=== PATIENT | female | born 1950 | race Caucasian/White ===

== ENCOUNTER 2019-01-01 07:06 | Emergency (ER) | payer MEDICARE, OTHER ==
[~2019-01-01] VITALS: Ht 160 cm; Wt 68.2 kg
[~2019-01-01 07:06] MED LIST: ARIP15TA3 PO; ASPI-1265 PO; DULO30CA51 PO; LAMO25TA5 PO; LIDO20SO PO; LOVA20TA2 PO; MODA200T25 PO; lisinopril PO
[2019-01-01 07:10] VITALS: BP 151/85
[2019-01-01] MEDS ORDERED: LIDOcaine 1% 30ml preserv. free vial IJ ONE (07:40)
== END 2019-01-01 09:08 | disposition home or self-care (01) ==
LOC: ER 07:07
DX: S61.211A Laceration without foreign body of left index finger without damage to nail, initial encounter (principal); I10 Essential (primary) hypertension; Z79.82 Long term (current) use of aspirin; Z91.013 Allergy to seafood; W26.8XXA Contact with other sharp object(s), not elsewhere classified, initial encounter; Y93.89 Activity, other specified; Y92.89 Other specified places as the place of occurrence of the external cause; Y99.8 Other external cause status
CPT/HCPCS: 12002; 99283; J3490

== ENCOUNTER 2019-12-28 05:05 | Day surgery (SDC) | payer MEDICARE, OTHER ==
[2019-12-20 15:47] LABS: BASOPHILS % (AUTO) 0.7 % (0-1); EOSINOPHILS # (AUTO) 0.1 X10'3 (0-0.9); EOSINOPHILS % (AUTO) 1.8 % (0-6); LYMPHOCYTES # (AUTO) 1.5 X10'3 (1.1-4.8); LYMPHOCYTES % (AUTO) 26.5 % (21-51); MEAN CORPUSCULAR HEMOGLOBIN 31.2 PG (27.0-31.0); MEAN CORPUSCULAR HGB CONC 33.5 g/dL (33.0-36.5); MEAN PLATELET VOLUME 7.7 FL (7.4-10.4); MONOCYTES # (AUTO) 0.4 X10'3 (0-0.9); NEUTROPHILS # (AUTO) 3.7 X10'3 (1.8-7.7); PRE OP HEMATOCRIT 33.5 % (35.0-45.0); PRE OP HEMOGLOBIN 11.2 g/dL (12.0-16.0); PRE OP PLATELET COUNT 196 X10'3 (140-440); RED BLOOD COUNT 3.61 X10'6 (4.20-5.60); RED CELL DISTRIBUTION WIDTH 12.7 % (11.5-14.5)
[2019-12-20 16:01] LABS: ALBUMIN 3.9 G/DL (3.4-5.0); ALBUMIN/GLOBULIN RATIO 1.2 (1.1-1.5); ALKALINE PHOSPHATASE 75 IU/L (46-116); BLOOD UREA NITROGEN 16 MG/DL (7-18); BUN/CREATININE RATIO 16.7 (6.6-38.0); CALCIUM 9.2 MG/DL (8.5-10.1); CHLORIDE 93 MMOL/L (99-107); CREATININE 0.96 MG/DL (0.40-0.90); PRE OP ALT 15 U/L (30-65); PRE OP ANION GAP 5 (8-16); PRE OP AST 26 U/L (10-37); PRE OP BILIRUB, TOTAL 0.3 MG/DL (0.0-1.0); PRE OP GLUCOSE 92 MG/DL (70-104); PRE OP POTASSIUM 4.3 MMOL/L (3.4-5.1); TOTAL CARBON DIOXIDE 29.7 MMOL/L (24-32); TOTAL PROTEIN 7.1 G/DL (6.4-8.2); eGFR 57 ML/MIN
[2019-12-20 16:02] LABS: PRE OP SODIUM 128 MMOL/L (135-145)
[~2019-12-28] VITALS: Ht 162.6 cm; Wt 71.2 kg
[~2019-12-28 05:05] MED LIST changes: -ASPI-1265 PO; +BUPR75TA8 PO; +CHLO25TA10 PO; +CLOP75TA33 PO; -DULO30CA51 PO; +DULO30CA52 PO; -LIDO20SO PO; -LOVA20TA2 PO; +ringers solution, lacted 1,000 ML IV SCH
[2019-12-28] MEDS ORDERED: famotidine 20mg tablet PO ONE (05:30)
[2019-12-28] MEDS ORDERED: vancomycin 1,500 MG in NS 500ml IV soln IV ONE (05:30)
[2019-12-28] MEDS ORDERED: ceFAZolin 2gm in dextrose, iso 50 ML IV ONE (05:30)
[2019-12-28] MEDS ORDERED: BUPIVAcaine/PF 2.5 mg/ml (0.25%) 30ml vial ONE (06:45)
[2019-12-28] MEDS ORDERED: ceFAZolin 1000mg inj ONE (06:46)
[2019-12-28 06:55] LABS: ISTAT CREATININE 0.9 mg/dL (0.6-1.1); ISTAT HGB 11.2 g/dl (12.0-16.0); ISTAT IONIZED CALCIUM 1.2 mmol/L (1.03-1.32); ISTAT K 4.6 mmol/L (3.5-5.1); POC BUN/CREATININE RATIO 15.6 (6.6-38.0)
--- NOTE | 2019-12-28 08:30 | NUR ---
PT WAS ADMITTED FOR SURGERY THIS AM, IV STARTED TO RIGHT FOREARM, PRE-OP MEDS GIVEN, I-STAT DRAWN, SODIUM 125, PT STATES HER SODIUM IS ALWAYS LOW, DR VANESSA AND DR CORNELL IN TO SEE PT, DECISION TO CANCEL SURGERY, LABS FAXED OVER TO PT'S PRIMARY PHYSICIAN, PT TOLD BY MD TO FOLLOW UP W/PMD. IV D/CD, PT D/CD TO HOME W/FRIEND VIA PRIVATE VEHICLE W/O INCIDENT. Addendum: 12/28/19 at 1150 by Opal Miguel RN Amended: Links added.
== END 2019-12-28 08:30 | disposition home or self-care (01) ==
LOC: PAS 05:05
PROVIDERS: ATTEND Orthopaedic Surgery
DX: S46.012A Strain of muscle(s) and tendon(s) of the rotator cuff of left shoulder, initial encounter (principal); Z53.8 Procedure and treatment not carried out for other reasons; M75.22 Bicipital tendinitis, left shoulder; Z79.01 Long term (current) use of anticoagulants; Z11.59 Encounter for screening for other viral diseases; X58.XXXA Exposure to other specified factors, initial encounter; Y93.89 Activity, other specified; Y92.89 Other specified places as the place of occurrence of the external cause; Y99.8 Other external cause status
CPT/HCPCS: 36415; 80047; 80053; 85025; 85610; 85730; 87635; J0690; J3370; J3490; J7040; J7120

== ENCOUNTER 2020-01-11 07:44 | Inpatient (IN) | payer MEDICARE, OTHER ==
[~2020-01-11] VITALS: Ht 162.6 cm; Wt 71.7 kg
[2020-01-11] VITALS (18 sets, daily range): BP systolic 141–172; BP diastolic 61–97
[~2020-01-11 07:44] MED LIST changes: +cefazolin/dext.iso 2gm/50ml 50 ML IV ONE; +famotidine 20mg tablet PO ONE; -ringers solution, lacted 1,000 ML IV SCH; +vancomycin 1,500 MG in NS 500ml IV soln IV ONE
[2020-01-11 08:35] LABS: BASOPHILS # (AUTO) 0.1 X10'3 (0-0.2); EOSINOPHILS # (AUTO) 0.2 X10'3 (0-0.9); EOSINOPHILS % (AUTO) 3.1 % (0-6); LYMPHOCYTES # (AUTO) 1.5 X10'3 (1.1-4.8); MEAN CORPUSCULAR HEMOGLOBIN 31.4 PG (27.0-31.0); MEAN CORPUSCULAR HGB CONC 33.4 g/dL (33.0-36.5); MEAN CORPUSCULAR VOLUME 94.1 FL (78-98); MEAN PLATELET VOLUME 7.9 FL (7.4-10.4); MONOCYTES # (AUTO) 0.4 X10'3 (0-0.9); MONOCYTES % (AUTO) 7.9 % (2-12); NEUTROPHILS # (AUTO) 3.3 X10'3 (1.8-7.7); PRE OP HEMATOCRIT 33.3 % (35.0-45.0); PRE OP HEMOGLOBIN 11.1 g/dL (12.0-16.0); PRE OP PLATELET COUNT 171 X10'3 (140-440); RED BLOOD COUNT 3.54 X10'6 (4.20-5.60); RED CELL DISTRIBUTION WIDTH 13.4 % (11.5-14.5)
[2020-01-11 09:00] LABS: ALBUMIN 3.7 G/DL (3.4-5.0); ALBUMIN/GLOBULIN RATIO 1.3 (1.1-1.5); ALKALINE PHOSPHATASE 89 IU/L (46-116); BLOOD UREA NITROGEN 15 MG/DL (7-18); BUN/CREATININE RATIO 17.2 (6.6-38.0); CALCIUM 8.9 MG/DL (8.5-10.1); CHLORIDE 102 MMOL/L (99-107); CREATININE 0.87 MG/DL (0.40-0.90); PRE OP ALT 16 U/L (30-65); PRE OP ANION GAP 9 (8-16); PRE OP AST 37 U/L (10-37); PRE OP BILIRUB, TOTAL 0.3 MG/DL (0.0-1.0); PRE OP GLUCOSE 92 MG/DL (70-104); PRE OP POTASSIUM 4.4 MMOL/L (3.4-5.1); PRE OP SODIUM 137 MMOL/L (135-145); TOTAL CARBON DIOXIDE 26.1 MMOL/L (24-32); TOTAL PROTEIN 6.5 G/DL (6.4-8.2); eGFR 64 ML/MIN
[2020-01-11] MEDS: ringers solution, lacted 1,000 ML IV SCH ×2 (09:23→14:53)
[2020-01-11] MEDS ORDERED: BUPIVAcaine/PF 2.5 mg/ml (0.25%) 30ml vial ONE (09:25)
[2020-01-11] MEDS ORDERED: ceFAZolin 1000mg inj ONE (09:25)
[2020-01-11] MEDS ORDERED: PANT-47 PO (09:31)
[2020-01-11] MEDS ORDERED: sevoflurane 250ml liquid IH ONE (09:49)
[2020-01-11] MEDS ORDERED: midazolam 2 mg/2 ml injection ONE (09:54)
[2020-01-11] MEDS ORDERED: fentaNYL /PF 50mcg/ml 5ml ampule ONE ×2 (09:54→10:38)
[2020-01-11] MEDS ORDERED: propofol inj 20 ML IV ONE (09:57)
[2020-01-11] MEDS ORDERED: ondansetron/PF 4mg/2ml inj IV PRN ×2 (10:45→12:45)
[2020-01-11] MEDS ORDERED: morphine 4 MG/ML inj SYRINge IV PRN (10:45)
[2020-01-11] MEDS ORDERED: ringers solution, lacted 1,000 ML IV SCH (10:45)
[2020-01-11] MEDS ORDERED: meperidine/PF 25mg/ml syringe IV PRN ×3 (10:45)
[2020-01-11] MEDS ORDERED: morphine 2 MG/ML inj. syringe IV PRN (10:45)
[2020-01-11] MEDS ORDERED: proCHLORperazine 10 MG/2 ml inj IV PRN (10:45)
[2020-01-11] MEDS ORDERED: rocuronium 10mg/ml inj IV ONE (12:03)
[2020-01-11] MEDS ORDERED: acetaminophen 1,000mg/100ml IV 100 ML IV ONE (12:04)
--- NOTE | 2020-01-11 12:29 | NUR ---
Received from OR via [facility]THO BED WITH [facility] , accompanied by Anesthesiologist ALFONSO and report given by Anesthesiolgist. PATIENT WITH 20G PIV IN RIGHT UE RUNNING LR AT 100. DENIES PAIN AT THIS TIME. LEFT UE IN SLING AND SPLINT THAT IS CDI. + RADIAL PULSE PRESENT. 10L MASK ON WITH 100% SATURATIONS. VSS, SCDS DONNED. Addendum: 01/11/20 at 1246 by Cory Canales RN, RN Amended: Links added.
[2020-01-11] MEDS ORDERED: bisacodyl 10mg suppository rectal RC PRN (12:45)
[2020-01-11] MEDS ORDERED: diphenhydrAMINE 25mg capsule PO PRN ×2 (12:45)
[2020-01-11] MEDS ORDERED: magnesium hydroxide 30ml (MOM) UD suspension PO PRN (12:45)
[2020-01-11] MEDS ORDERED: acetaminophen 325mg tablet PO PRN (12:45)
--- NOTE | 2020-01-11 13:19 | NUR ---
Patient in room . I have received report from Cory BERNSTEIN and had the opportunity to ask questions and assume patient care.
--- NOTE | 2020-01-11 13:29 | NUR ---
Patient has met criteria for transfer to floor. Patient vss. Pain at a tolerable level. Transferred via bed to room where they were hooked to vitals and RN notified patient has arrived. Bed low, call light within reach, 2-3 rails up, vss, belongings placed in room. Care turned over to AMANDEEP CASTILLO. Addendum: 01/11/20 at 1342 by Cory Romero - AMANDEEP BERNSTEIN Amended: Links added.
[2020-01-11] MEDS: HYDROcodone/acetaminophen 10/325mg tab PO PRN ×2 (13:59→20:13)
--- NOTE | 2020-01-11 14:30 | NUR ---
Patient in room ORTHO 4015. I have received report from JONATHAN BERNSTEIN and had the opportunity to ask questions and assume patient care.
--- NOTE | 2020-01-11 14:31 | NUR ---
Problems reprioritized. Patient report given, questions answered & plan of care reviewed with ANTWAN BERNSTEIN.
[2020-01-11] MEDS: potassium Cl 20mEq in NS 1,000 ML IV SCH (16:10)
[2020-01-11] MEDS: ceFAZolin 1GM/D5W- ADD-VANTAGE 50 ML IV SCH (16:11)
[2020-01-11] MEDS: HYDROmorphone inj. 0.5 MG/0.5 ML DISP.SYRIN IV PRN (16:14)
[2020-01-11] MEDS ORDERED: ketorolac tromethamine 15mg/ml inj. IV SCH (16:30)
--- NOTE | 2020-01-11 18:25 | NUR ---
Problems reprioritized. Patient report given, questions answered & plan of care reviewed with RICHARD BERNSTEIN.
--- NOTE | 2020-01-11 18:32 | NUR ---
Patient in room ORTHO 4015. I have received report from Daniela BERNSTEIN and had the opportunity to ask questions and assume patient care.
[2020-01-11] MEDS ORDERED: vancomycin/NS 1 GM ADD-VANTAGE 250 ML IV SCH (20:00)
[2020-01-11] MEDS: lamoTRIgine 100mg tablet PO SCH (20:13)
[2020-01-11] MEDS ORDERED: sennosides 8.6mg tablet PO SCH (21:00)
[2020-01-11] MEDS ORDERED: duloxetine 30mg CAPSULE.DR PO SCH (21:00)
[2020-01-11] MEDS: ketorolac tromethamine 15mg/ml inj. IV PRN (22:14)
[2020-01-12] MEDS: ceFAZolin 1GM/D5W- ADD-VANTAGE 50 ML IV SCH (00:01)
[2020-01-12 02:00] VITALS: BP 166/80
[2020-01-12] MEDS: HYDROcodone/acetaminophen 10/325mg tab PO PRN ×4 (02:15→16:23)
[2020-01-12] MEDS: potassium Cl 20mEq in NS 1,000 ML IV SCH (05:37)
[2020-01-12 06:00] VITALS: BP 165/78
--- NOTE | 2020-01-12 06:28 | NUR ---
Problems reprioritized. Patient report given, questions answered & plan of care reviewed with Margaret BERNSTEIN.
[2020-01-12] MEDS: HYDROmorphone inj. 0.5 MG/0.5 ML DISP.SYRIN IV PRN ×2 (07:52→14:39)
[2020-01-12] MEDS: ketorolac tromethamine 15mg/ml inj. IV PRN ×2 (07:57→14:39)
[2020-01-12] MEDS ORDERED: clopidogrel 75mg tablet PO SCH (08:00)
[2020-01-12] MEDS ORDERED: modafinil 100mg tablet PO SCH (08:00)
[2020-01-12] MEDS ORDERED: buPROPion 75mg tablet PO SCH (08:00)
[2020-01-12] MEDS ORDERED: ARIPIPRAZOLE 15 MG TABLET PO SCH (08:00)
[2020-01-12] MEDS ORDERED: chlorthalidone 25mg tablet PO SCH (08:00)
[2020-01-12] MEDS: lamoTRIgine 100mg tablet PO SCH (08:02)
--- NOTE | 2020-01-12 09:16 | NUR ---
Problems reprioritized. Patient report given, questions answered & plan of care reviewed with Shereen BERNSTEIN.
--- NOTE | 2020-01-12 09:31 | NUR ---
Problems reprioritized. Patient report given, questions answered & plan of care reviewed with Margaret BERNSTEIN.
--- NOTE | 2020-01-12 09:35 | NUR ---
I agree with the physical assessment charted by Margaret BERNSTEIN
[2020-01-12 10:00] VITALS: BP 139/71
--- NOTE | 2020-01-12 16:50 | NUR ---
Patient taught all discharge instructions and had paper copy of norco given to her. Patient taken on in to private vehicle and has a follow up appointment on Wednesday with Dr. Crawley.
--- NOTE | 2020-01-17 09:52 | NUR ---
Case Management DC follow up: spoke to pt via telephone. S/P: L shoulder repair Reports: "doing good". Denies: acute cp, SOB, resp distress, vertigo, syncope,weakness, blurry vision, N/V, RHODES, emergent general pain, abd tenderness/distension, fever. Denies s/s infection to L arm, surg site. Verbalizes understanding of s/s that warrant 9-11/ER visit for evaluation. Verbalizes understanding of new Rx and why prescribed, resumes current Rx/taking as ordered, no ase r/t polypharmacy. Acknowledges need to schedule/keep follow up appts w/ PCP/Katt Verma; Dr Crawley 01/26/20. Pt verbalizes compliance w/after care instructions. Needs met, questions answered at DC, no further questions at this time.
== END 2020-01-12 16:45 | disposition home or self-care (01) | DRG 502 ==
LOC: PAS 07:44 → ORTHO 4S 12:41 → UNDOADMIN 12:44
PROVIDERS: ADMIT Orthopaedic Surgery; ATTEND Orthopaedic Surgery
PROC: 0LS40ZZ Reposition Left Upper Arm Tendon, Open Approach (ICD-10-PCS; 2020-01-11)
PROC: 0PBB0ZZ Excision of Left Clavicle, Open Approach (ICD-10-PCS; 2020-01-11)
PROC: 0LQ20ZZ Repair Left Shoulder Tendon, Open Approach (ICD-10-PCS; principal; 2020-01-11 09:49)
DX: M75.122 Complete rotator cuff tear or rupture of left shoulder, not specified as traumatic (principal); M75.22 Bicipital tendinitis, left shoulder; I10 Essential (primary) hypertension; M19.012 Primary osteoarthritis, left shoulder; D64.9 Anemia, unspecified; K21.9 Gastro-esophageal reflux disease without esophagitis; F41.8 Other specified anxiety disorders
CPT/HCPCS: 36415; 80053; 82948; 85025; A4565; A4618; A6223; A6253; A6449; A7000; C1713; G0378; J0131; J0690; J1170; J1885; J2250; J2405; J2704; J3010; J3370; J3480; J3490; J7040; J7120

== ENCOUNTER 2020-02-19 10:23 | Emergency (ER) | payer MEDICARE, OTHER ==
[~2020-02-19] VITALS: Ht 162.6 cm; Wt 67.3 kg
[~2020-02-19 10:23] MED LIST changes: +PANT-47 PO; -cefazolin/dext.iso 2gm/50ml 50 ML IV ONE; -famotidine 20mg tablet PO ONE; -vancomycin 1,500 MG in NS 500ml IV soln IV ONE
[2020-02-19] MEDS ORDERED: AMOX-422 PO (12:49)
[2020-02-19 12:54] VITALS: BP 91/51
== END 2020-02-19 13:02 | disposition home or self-care (01) ==
LOC: ER 10:24
DX: S81.812A Laceration without foreign body, left lower leg, initial encounter (principal); I10 Essential (primary) hypertension; F32.9 Major depressive disorder, single episode, unspecified; Z88.8 Allergy status to other drugs, medicaments and biological substances; Z79.899 Other long term (current) drug therapy; W55.82XA Struck by other mammals, initial encounter; Y93.89 Activity, other specified; Y92.89 Other specified places as the place of occurrence of the external cause; Y99.8 Other external cause status
CPT/HCPCS: 12004; 73590; 99283

== ENCOUNTER → 2020-06-24 | Day surgery (SDC) | payer MEDICARE, OTHER ==
[~2020-06-24] VITALS: Ht 157.5 cm; Wt 72.0 kg
[2020-06-24] VITALS (9 sets, daily range): BP systolic 96–149; BP diastolic 45–66
[~2020-06-24] MED LIST changes: +FLU VACC QS2020-21(6MOS UP)/PF 60 MCG/0.5 ML SYRINGE IMVAC ONE; +HYDROcodone/acetaminophen 10/325mg tab PO PRN; +HYDROcodone/acetaminophen 5mg/325mg tablet PO PRN; +LIDOcaine 1% (10mg/ml)w/preservative injection 20ml MDV ONE; +LISI30TA4 PO; +clopidogrel 300mg tablet ONE; +diphenhydrAMINE 25mg capsule PO PRN; +diphenhydrAMINE 50 mg/ml inj ONE; +fentaNYL/PF 50MCG/1 ML 2ML syringe ONE; +heparin 1,000unit/ml 10ml vial 10 ML ONE; +iohexol 350 MG/1 ML 200ml bottle ONE; +iohexol 350MG/ML 100ml bottle IV ONE; +midazolam 2 mg/2 ml injection ONE; +normal saline 1,000 ML IV SCH; +ondansetron/PF 4mg/2ml inj IV PRN; +proCHLORperazine 10 MG/2 ml inj IV PRN
[2020-06-24 08:30] LABS: ALBUMIN 3.7 G/DL (3.4-5.0); ANION GAP 7 (8-16); BLOOD UREA NITROGEN 20 MG/DL (7-18); BUN/CREATININE RATIO 23.3 (6.6-38.0); CHLORIDE 93 MMOL/L (99-107); CREATININE 0.86 MG/DL (0.40-0.90); GLUCOSE 92 MG/DL (70-104); POTASSIUM 4.9 MMOL/L (3.5-5.1); SODIUM 126 MMOL/L (135-145); TOTAL CARBON DIOXIDE 26.1 MMOL/L (24-32); eGFR 65 ML/MIN
[2020-06-24 08:38] LABS: BASOPHILS # (AUTO) 0.1 X10'3 (0-0.2); BASOPHILS % (AUTO) 1.3 % (0-1); EOSINOPHILS # (AUTO) 0.1 X10'3 (0-0.9); EOSINOPHILS % (AUTO) 1.8 % (0-6); HEMATOCRIT 31.1 % (35.0-45.0); HEMOGLOBIN 10.8 g/dl (12.0-16.0); LYMPHOCYTES # (AUTO) 1.5 X10'3 (1.1-4.8); LYMPHOCYTES % (AUTO) 28.4 % (21-51); MEAN CORPUSCULAR HEMOGLOBIN 32.9 PG (27.0-31.0); MEAN CORPUSCULAR HGB CONC 34.8 g/dL (33.0-36.5); MEAN CORPUSCULAR VOLUME 94.8 FL (78-98); MEAN PLATELET VOLUME 7.3 FL (7.4-10.4); MONOCYTES # (AUTO) 0.3 X10'3 (0-0.9); MONOCYTES % (AUTO) 6.3 % (2-12); NEUTROPHILS # (AUTO) 3.2 X10'3 (1.8-7.7); NEUTROPHILS % (AUTO) 62.2 % (42-75); PLATELET COUNT 217 X10'3 (140-440); RED BLOOD COUNT 3.28 X10'6 (4.20-5.60); RED CELL DISTRIBUTION WIDTH 12.5 % (11.5-14.5); WHITE BLOOD COUNT 5.1 X10'3 (4.5-11.0)
--- NOTE | 2020-06-24 08:55 | NUR ---
at the bedside.
--- NOTE | 2020-06-24 09:11 | NUR ---
Pt left the floor to procedure.
--- NOTE | 2020-06-24 11:54 | NUR ---
Asked pt's sister to call back to discuss discharge time, per patient request
--- NOTE | 2020-06-24 13:14 | NUR ---
Have left two messages with pt's family, no return call yet. Pt is attempting to contact sister. Pt sitting up comfortably in bed, site stable. Drsg CD&I. No s/s of bleeding or infection. VS stable as charted. Pt eating crackers and cheese. Denies N/V. Denies sob, cp. Will continue to monitor.
== END | disposition home or self-care (01) ==
LOC: SSTAY O 07:27
PROVIDERS: ATTEND Internal Medicine Cardiovascular Disease
DX: T82.856A Stenosis of peripheral vascular stent, initial encounter (principal); I10 Essential (primary) hypertension; E78.5 Hyperlipidemia, unspecified; Z79.899 Other long term (current) drug therapy; Y83.8 Other surgical procedures as the cause of abnormal reaction of the patient, or of later complication, without mention of misadventure at the time of the procedure; Y92.89 Other specified places as the place of occurrence of the external cause
CPT/HCPCS: 36415; 37224; 75716; 80048; 83735; 85025; 85610; 93005; 99152; 99153; C1725; C1760; C1769; C1894; J1200; J1644; J2001; J2250; J3010; J7030; Q9967; 75710; A4620; A6258

== ENCOUNTER 2020-06-28 12:18 | Outpatient (CLI) | payer MEDICARE, OTHER ==
[~2020-06-28 12:18] MED LIST changes: -BUPR75TA8 PO; -FLU VACC QS2020-21(6MOS UP)/PF 60 MCG/0.5 ML SYRINGE IMVAC ONE; -HYDROcodone/acetaminophen 10/325mg tab PO PRN; -HYDROcodone/acetaminophen 5mg/325mg tablet PO PRN; -LIDOcaine 1% (10mg/ml)w/preservative injection 20ml MDV ONE; -PANT-47 PO; -clopidogrel 300mg tablet ONE; -diphenhydrAMINE 25mg capsule PO PRN; -diphenhydrAMINE 50 mg/ml inj ONE; -fentaNYL/PF 50MCG/1 ML 2ML syringe ONE; -heparin 1,000unit/ml 10ml vial 10 ML ONE; -iohexol 350 MG/1 ML 200ml bottle ONE; -iohexol 350MG/ML 100ml bottle IV ONE; -lisinopril PO; -midazolam 2 mg/2 ml injection ONE; -normal saline 1,000 ML IV SCH; -ondansetron/PF 4mg/2ml inj IV PRN; -proCHLORperazine 10 MG/2 ml inj IV PRN
== END 2020-06-28 23:59 | disposition home or self-care (01) ==
LOC: VAS 12:18
PROVIDERS: ATTEND Internal Medicine Cardiovascular Disease
DX: L76.32 Postprocedural hematoma of skin and subcutaneous tissue following other procedure (principal); R09.89 Other specified symptoms and signs involving the circulatory and respiratory systems
CPT/HCPCS: 93926

== ENCOUNTER 2021-02-12 06:35 | Emergency (ER) | payer MEDICARE, OTHER ==
[~2021-02-12] VITALS: Ht 154.9 cm; Wt 72.7 kg
[2021-02-12] MEDS ORDERED: proparacaine 0.5% ophthalmic drops 15ml LEFTEYE ONE (07:05)
[2021-02-12] MEDS ORDERED: acetaminophen 325mg tablet PO ONE (08:50)
[2021-02-12] MEDS ORDERED: LIDOcaine 1% W/epiNEPHrine 1:200,000 10ml vial IJ ONE (09:00)
--- NOTE | 2021-02-12 10:18 | NUR ---
left eye irrigated. pt states, "feels much better"
[2021-02-12] MEDS ORDERED: cloNIDine 0.1 mg tablet PO ONE (11:20)
[2021-02-12] MEDS: gentamicin ophthalmic ointment 1 APPLIC TUBE LEFTEYE ONE ×2 (11:23→11:27)
[2021-02-12 11:40] VITALS: BP 118/92
== END 2021-02-12 11:47 | disposition home or self-care (01) ==
LOC: ER 06:36
DX: S05.32XA Ocular laceration without prolapse or loss of intraocular tissue, left eye, initial encounter (principal); E78.00 Pure hypercholesterolemia, unspecified; I10 Essential (primary) hypertension; F32.9 Major depressive disorder, single episode, unspecified; Z98.890 Other specified postprocedural states; Z72.89 Other problems related to lifestyle; Z88.8 Allergy status to other drugs, medicaments and biological substances; Z79.899 Other long term (current) drug therapy; W19.XXXA Unspecified fall, initial encounter; Y93.89 Activity, other specified; Y92.89 Other specified places as the place of occurrence of the external cause; Y99.8 Other external cause status
CPT/HCPCS: 12011; 65222; 70450; 99284

== ENCOUNTER 2021-02-13 07:48 | Emergency (ER) | payer MEDICARE, OTHER ==
[~2021-02-13] VITALS: Ht 154.9 cm; Wt 71.0 kg
[2021-02-13 08:07] VITALS: BP 141/79
== END 2021-02-13 12:10 | disposition left against medical advice (07) ==
LOC: ER 07:49
DX: H57.12 Ocular pain, left eye (principal); Z53.21 Procedure and treatment not carried out due to patient leaving prior to being seen by health care provider

== ENCOUNTER 2022-10-15 08:13 | Outpatient (CLI) | payer MEDICARE, OTHER ==
[2022-10-15 08:49] LABS: ALBUMIN 3.9 G/DL (3.4-5.0); ANION GAP 6 (8-16); BLOOD UREA NITROGEN 28 MG/DL (7-18); BUN/CREATININE RATIO 26.9 (6.6-38.0); CALCIUM 9.1 MG/DL (8.5-10.1); CHLORIDE 103 MMOL/L (99-107); CREATININE 1.04 MG/DL (0.40-0.90); GLUCOSE 94 MG/DL (70-104); POTASSIUM 4.7 MMOL/L (3.5-5.1); SODIUM 135 MMOL/L (135-145); TOTAL CARBON DIOXIDE 25.9 MMOL/L (24-32); eGFR 52 ML/MIN
[2022-10-15] MEDS ORDERED: iohexol 300mg/ml 100ml inj. ONE (09:37)
== END 2022-10-15 23:59 | disposition home or self-care (01) ==
LOC: RAD 08:13
PROVIDERS: ATTEND Surgery
DX: C34.10 Malignant neoplasm of upper lobe, unspecified bronchus or lung (principal); R91.8 Other nonspecific abnormal finding of lung field; I70.0 Atherosclerosis of aorta; J43.9 Emphysema, unspecified; J84.10 Pulmonary fibrosis, unspecified; I25.10 Atherosclerotic heart disease of native coronary artery without angina pectoris; K76.0 Fatty (change of) liver, not elsewhere classified; K76.89 Other specified diseases of liver; K57.30 Diverticulosis of large intestine without perforation or abscess without bleeding; M47.814 Spondylosis without myelopathy or radiculopathy, thoracic region; M41.84 Other forms of scoliosis, thoracic region
CPT/HCPCS: 36415; 71260; 80048; J3490; Q9967

== ENCOUNTER 2022-11-02 08:33 | Outpatient (CLI) | payer MEDICARE, OTHER ==
[2022-11-02] MEDS ORDERED: GADOTERATE MEGLUMINE 7.5 MMOL/15 ML VIAL IV ONE (09:51)
== END 2022-11-02 23:59 | disposition home or self-care (01) ==
LOC: RAD 08:33
PROVIDERS: ATTEND Surgery
DX: C34.10 Malignant neoplasm of upper lobe, unspecified bronchus or lung (principal); C34.11 Malignant neoplasm of upper lobe, right bronchus or lung; I67.82 Cerebral ischemia; M89.38 Hypertrophy of bone, other site
CPT/HCPCS: 70553; A9575

== ENCOUNTER 2022-11-17 08:29 | Emergency (ER) | payer MEDICARE, OTHER ==
[~2022-11-17] VITALS: Ht 154.9 cm; Wt 64.8 kg
[2022-11-17] MEDS ORDERED: acetaminophen 325mg tablet PO ONE (08:40)
[2022-11-17] MEDS ORDERED: normal saline 1000ml 1,000 ML IV ONE (08:40)
--- NOTE | 2022-11-17 09:00 | NUR ---
ATTEMPT EKG, PT IN CT.
[2022-11-17] MEDS ORDERED: fentaNYL/PF 50MCG/1 ML 2ML syringe IV ONE (09:55)
[2022-11-17] MEDS ORDERED: ondansetron/PF 4mg/2ml inj IV ONE (09:55)
[2022-11-17 10:42] LABS: BASOPHILS % (AUTO) 0.4 % (0-1); EOSINOPHILS % (AUTO) 0.5 % (0-6); HEMATOCRIT 37.4 % (35.0-45.0); HEMOGLOBIN 12.3 g/dl (12.0-16.0); LYMPHOCYTES % (AUTO) 14.1 % (21-51); MEAN CORPUSCULAR HEMOGLOBIN 30.1 PG (27.0-31.0); MEAN CORPUSCULAR HGB CONC 32.8 g/dL (33.0-36.5); MEAN CORPUSCULAR VOLUME 91.8 FL (78-98); MEAN PLATELET VOLUME 8.8 FL (7.4-10.4); MONOCYTES # (AUTO) 0.5 X10'3 (0-0.9); MONOCYTES % (AUTO) 6.2 % (2-12); NEUTROPHILS # (AUTO) 5.8 X10'3 (1.8-7.7); NEUTROPHILS % (AUTO) 78.8 % (42-75); PLATELET COUNT 156 X10'3 (140-440); RED BLOOD COUNT 4.08 X10'6 (4.20-5.60); RED CELL DISTRIBUTION WIDTH 15.9 % (11.5-14.5); WHITE BLOOD COUNT 7.3 X10'3 (4.5-11.0)
[2022-11-17 10:54] LABS: ALANINE AMINOTRANSFERASE 44 U/L (12-78); ALBUMIN 3.9 G/DL (3.4-5.0); ALBUMIN/GLOBULIN RATIO 1.3 (1.1-1.5); ALKALINE PHOSPHATASE 100 IU/L (46-116); ANION GAP 11 (8-16); ASPARTATE AMINO TRANSFERASE 66 U/L (10-37); BILIRUBIN,TOTAL 0.4 MG/DL (0.1-1.0); BLOOD UREA NITROGEN 38 MG/DL (7-18); BUN/CREATININE RATIO 38.4 (10.0-20.0); CALCIUM 8.9 MG/DL (8.5-10.1); CHLORIDE 105 MMOL/L (99-107); CREATININE 0.99 MG/DL (0.40-0.90); GLUCOSE 107 MG/DL (70-104); LIPASE 87 U/L (73-393); POTASSIUM 4.5 MMOL/L (3.5-5.1); SODIUM 137 MMOL/L (135-145); TOTAL CARBON DIOXIDE 20.8 MMOL/L (24-32); eGFR 55 ML/MIN
== END 2022-11-17 11:23 | disposition short-term general hospital (02) ==
LOC: ER 08:29
DX: S12.600A Unspecified displaced fracture of seventh cervical vertebra, initial encounter for closed fracture (principal); Z20.822 Contact with and (suspected) exposure to COVID-19; I10 Essential (primary) hypertension; E78.00 Pure hypercholesterolemia, unspecified; Z91.013 Allergy to seafood; W19.XXXA Unspecified fall, initial encounter; Y93.89 Activity, other specified; Y92.89 Other specified places as the place of occurrence of the external cause; Y99.8 Other external cause status
CPT/HCPCS: 36415; 70450; 71045; 72125; 80053; 83690; 84484; 85025; 87811; 93005; 96374; 96375; 99285; J2405; J3010; J7030

== ENCOUNTER 2023-03-20 14:09 | Emergency (ER) | payer MEDICARE, OTHER ==
[~2023-03-20] VITALS: Ht 154.9 cm; Wt 61.4 kg
[2023-03-20 14:48] VITALS: BP 147/97; PULSE 117; RESP 22; TEMP 96.5; O2SAT 93
== END 2023-03-20 22:11 | disposition left against medical advice (07) ==
LOC: ER 14:10
DX: I10 Essential (primary) hypertension (principal); R06.02 Shortness of breath; R05.9 Cough, unspecified; Z53.21 Procedure and treatment not carried out due to patient leaving prior to being seen by health care provider
CPT/HCPCS: 99281

== ENCOUNTER 2023-03-22 06:17 | Emergency (ER) | payer MEDICARE, OTHER ==
[~2023-03-22] VITALS: Ht 154.9 cm; Wt 62.2 kg
[2023-03-22] MEDS ORDERED: ipratropium 0.5 MG/2.5ML nebule IH PRN (06:55)
[2023-03-22] MEDS ORDERED: albuterol 2.5 MG/3 ML nebule NEB PRN (06:55)
[2023-03-22 07:00] LABS: BASOPHILS # (AUTO) 0.1 X10'3 (0-0.2); BASOPHILS % (AUTO) 0.6 % (0-1); EOSINOPHILS # (AUTO) 0.2 X10'3 (0-0.9); EOSINOPHILS % (AUTO) 2.6 % (0-6); HEMATOCRIT 33.8 % (35.0-45.0); HEMOGLOBIN 11.2 g/dl (12.0-16.0); LYMPHOCYTES % (AUTO) 11.7 % (21-51); MEAN CORPUSCULAR HEMOGLOBIN 30.1 PG (27.0-31.0); MEAN CORPUSCULAR HGB CONC 33.3 g/dL (33.0-36.5); MEAN CORPUSCULAR VOLUME 90.6 FL (78-98); MEAN PLATELET VOLUME 7.7 FL (7.4-10.4); MONOCYTES # (AUTO) 0.5 X10'3 (0-0.9); MONOCYTES % (AUTO) 6.3 % (2-12); NEUTROPHILS # (AUTO) 6.8 X10'3 (1.8-7.7); NEUTROPHILS % (AUTO) 78.8 % (42-75); PLATELET COUNT 227 X10'3 (140-440); RED BLOOD COUNT 3.73 X10'6 (4.20-5.60); RED CELL DISTRIBUTION WIDTH 14.7 % (11.5-14.5); WHITE BLOOD COUNT 8.6 X10'3 (4.5-11.0)
[2023-03-22] MEDS ORDERED: albuterol 2.5 MG/3 ML nebule NEB ONE (07:00)
[2023-03-22] MEDS ORDERED: methylPREDNISolone sod succ 125mg/2ml vial IV ONE (07:00)
[2023-03-22 07:16] LABS: ALANINE AMINOTRANSFERASE 22 U/L (12-78); ALBUMIN 3.6 G/DL (3.4-5.0); ALBUMIN/GLOBULIN RATIO 1.1 (1.1-1.5); ALKALINE PHOSPHATASE 137 IU/L (46-116); ANION GAP 12 (8-16); ASPARTATE AMINO TRANSFERASE 25 U/L (10-37); BILIRUBIN,TOTAL 0.3 MG/DL (0.1-1.0); BLOOD UREA NITROGEN 24 MG/DL (7-18); CALCIUM 8.8 MG/DL (8.5-10.1); CHLORIDE 104 MMOL/L (99-107); CREATININE 1.33 MG/DL (0.40-0.90); GLUCOSE 89 MG/DL (70-104); POTASSIUM 4.3 MMOL/L (3.5-5.1); SODIUM 138 MMOL/L (135-145); TOTAL CARBON DIOXIDE 22.2 MMOL/L (24-32); TOTAL PROTEIN 6.8 G/DL (6.4-8.2); eCRCL 28 ML/MIN; eGFR 39 ML/MIN
[2023-03-22 07:23] VITALS: PULSE 114; RESP 36; O2SAT 96
[2023-03-22 07:26] LABS: PRO BRAIN NATRIURETIC PEPTIDE 79 PG/ML (0-125)
[2023-03-22] MEDS ORDERED: benzonatate 100mg capsule PO ONE (07:35)
[2023-03-22 07:38] VITALS: PULSE 109; RESP 25; O2SAT 96
[2023-03-22] MEDS ORDERED: DEC4T PO (09:40)
[2023-03-22] MEDS ORDERED: BENZ-38 PO (09:40)
[2023-03-22] MEDS ORDERED: ALBU6.7H14 INH (09:40)
[2023-03-22 10:05] VITALS: BP 150/71; PULSE 96; RESP 14; TEMP 98.1; O2SAT 96
== END 2023-03-22 10:25 | disposition home or self-care (01) ==
LOC: ER 06:18
DX: J45.901 Unspecified asthma with (acute) exacerbation (principal); Z20.822 Contact with and (suspected) exposure to COVID-19; I10 Essential (primary) hypertension; E78.00 Pure hypercholesterolemia, unspecified; F32.A Depression, unspecified; Z79.899 Other long term (current) drug therapy
CPT/HCPCS: 36415; 71045; 80053; 83605; 83880; 84145; 84484; 85025; 87040; 87811; 93005; 94640; 96374; 99285; J2930; 94760

== ENCOUNTER 2025-05-26 11:44 | Inpatient (IN) | payer OTHER, MEDICAID ==
[~2025-05-26] VITALS: Ht 154.9 cm; Wt 66.7 kg
[2025-05-26] VITALS (7 sets, daily range): BP systolic 106–114; BP diastolic 45–54; PULSE 90–100; RESP 16–20; TEMP 97.6–97.7; O2SAT 94–98
[~2025-05-26 11:44] MED LIST changes: -ARIP15TA3 PO; +ATOR-2 PO; +BUPR-480 PO; -CHLO25TA10 PO; +CLON0.1T; +DULO60CA65 PO; +EZET10TA80 PO; +LAMO-24 PO; -LAMO25TA5 PO; -MODA200T25 PO
--- NOTE | 2025-05-26 12:06 | Physician Documentation ---
History of Present Illness ~ Chief Complaint: Weakness Stated Complaint: FALL OK to notify your PCP?: Yes Primary Medical Doctor: Luci Source: patient Mode of Arrival: POV Exam Limitations: no limitations HPI 74-year-old female presents with her sister or increasing weakness. She is currently using a front wheel walker. No she reports that a few days ago she had a fall. She does take Plavix. She denies having any head strike with this fall. She also reports a decrease in appetite. She also reports generalized abdominal pain. Medication Reconciliation Allergies: Coded Allergies: shrimp (Verified Allergy, Severe, THROAT SWELLING, 05/26/25) Scheduled Atorvastatin Calcium (Atorvastatin Calcium), 1 TAB PO DAILY, (Reported) Bupropion HCl (Bupropion Xl), 1 TAB PO DAILY, (Reported) Clopidogrel Bisulfate (Clopidogrel), 1 TAB PO DAILY, (Reported) Duloxetine HCl (Duloxetine HCl), 2 CAP PO HS, (Reported) Duloxetine HCl (Duloxetine HCl), 1 CAP PO DAILY, (Reported) Ezetimibe (Ezetimibe), 1 TAB PO DAILY, (Reported) Lamotrigine (Lamotrigine), 100 MG PO BID, (Reported) Lisinopril (Lisinopril), 1 TAB PO DAILY, (Reported) Miscellaneous Medications Clonidine HCl (Clonidine HCl), (Reported) Past Medical History Past Medical History: High Cholesterol, Hypertension, *GI/HEPATOBILIARY*, Lung Cancer, Depression Past Surgical History: orthopedic surgeries Patient History: (CABG) Coronary artery bypass grafting FATHER (70 ) brother (55-58 years old) Alcohol Use: Sober Drug Use: none Lives In: Home Occupation: disabled, retired Physical Exam Vital Signs: RN Vital Signs have been reviewed: Yes, Temperature: 97.2, Source: Temporal, Heart Rate: 97, Respiratory Rate: 24, BP: 120/60, Pulse Oximetry: 96, Weight: 66.700 Oxygen Flow Rate: 0 Pulse Oximetry Reflects: adequate oxygenation Physical Exam General: Alert, no distress. HEENT: No injection, moist mucous membranes. Neck: Full range of motion. Respiratory: No respiratory distress, equal chest rise and fall. Chest: No accessory muscle use. Cardiovascular: Regular rate and rhythm. Gastrointestinal: Nondistended. Extremities: Normal range of motion, no deformity. Neurologic: Oriented x4. Psychiatric: Normal mood and affect. Skin: Normal color, warm and dry. Progress Results/Orders Results/Orders Vital Signs 05/26/25 11:51 Temp 97.2 Pulse 97 Resp 24 B/P (MAP) 120/60 Pulse Ox 96 O2 Flow Rate 0 Departure Referrals: NO PRIMARY CARE PROVIDER (PCP) Additional Comment Medical Screen Exam This patient recieved a medical screening examination. After reviewing the individual's medical complaints with presenting symptoms and performing an appropriate physical examination, it was determined that no immediate life- threatening emergency medical condition is present. This individual is also not a women having contractions. BALBIR BACON [facility] May 26, 2025 12:06
[2025-05-26 12:56] LABS: MEAN PLATELET VOLUME 7.2 FL (7.4-10.4); RED CELL DISTRIBUTION WIDTH 13.5 % (11.5-14.5)
[2025-05-26 13:01] LABS: INR 1.1 INR
[2025-05-26 13:12] LABS: CREATININE 1.93 MG/DL (0.40-0.90); PHOSPHORUS 4.3 MG/DL (2.3-4.5); PRO BRAIN NATRIURETIC PEPTIDE 589 PG/ML (0-450); TOTAL CARBON DIOXIDE 23.5 MMOL/L (24-32); eCRCL 19 ML/MIN; eGFR 25 ML/MIN
[2025-05-26 13:31] LABS: INFLUENZA TYPE A ANTIGEN RAPID NEGATIVE (Negative); INFLUENZA TYPE B ANTIGEN RAPID NEGATIVE (Negative)
[2025-05-26] MEDS ORDERED: vancomycin/NS 1 GM ADD-VANTAGE 250 ML X 1 DOSE IV SCH (14:00)
[2025-05-26 14:19] LABS: LEUKOCYTE ESTERASE ,URINE LARGE (Neg); NITRITES, URINE NEGATIVE (Neg); OCCULT BLOOD,URINE SMALL (Neg)
[2025-05-26 14:21] LABS: C DIFF ANTIGEN NEGATIVE (NEGATIVE); C DIFF SPECIMEN=DIARRHEA? ACCEPTABLE; C DIFFICILE TOXINS A&B NEGATIVE (Neg)
[2025-05-26 14:24] LABS: UA COLLECTION TYPE CLN CATCH MIDSTREAM
[2025-05-26 14:26] LABS: MUCUS STRANDS FEW /LPF (Neg); SQUAMOUS EPITHELIAL CELL,UR MODERATE /LPF (FEW)
--- NOTE | 2025-05-26 14:32 | RADIOLOGY REPORT ---
CT CT HEAD Indication: Fall EXAM DATE: 05/26/2025 02:04 PM COMPARISON: None TECHNIQUE: CT of the head without intravenous contrast. RADIATION DOSE: CTDIvol: 16 1 mGy, DLP: 1182 mGy*cm FINDINGS: There is no intracranial hemorrhage. There is no extra-axial fluid, mass, mass effect or midline shift. The ventricles are midline and normal in size. Basilar cisterns are patent. Moderate periventricular and subcortical white matter chronic microvascular ischemic changes. Mild global cerebral volume loss. Old bilateral nicole radiata / basal ganglia lacunar infarcts. The paranasal sinuses and mastoids are well-pneumatized. Imaged portion of the orbits are unremarkable. IMPRESSION: No intracranial hemorrhage or mass effect. Moderate chronic microvascular ischemic changes. Mild global cerebral volume loss.
--- NOTE | 2025-05-26 14:43 | RADIOLOGY REPORT ---
EXAM: CT CT CERVICAL SPINE INDICATION: Fall EXAM DATE: 05/26/2025 02:06 PM COMPARISON: CT CT HEAD on DOS: 05/26/25, CT HEAD on DOS: 11/17/22, CT CERVICAL SPINE on DOS: 11/17/22 TECHNIQUE: Multiple axial CT images of the cervical spine were obtained using bone algorithm. Axial and coronal reformatting was done. Bone and soft tissue windows were reviewed. Radiation Dose Information: CT Dose: CTDI volume is 20.2 mGy. Dose-length product is 397 mGy*cm FINDINGS: The cervical alignment is intact. No acute cervical spine fracture is identified. The vertebral body heights are intact. No suspicious osseous lesions are identified. Posterior cervical fixation hardware spans C5 down to T1. No evidence of hardware complication. There is no prevertebral soft tissue swelling. IMPRESSION: 1. No evidence of acute cervical spine fracture or traumatic malalignment. All CT scans at this medical facility are performed using dose modulation techniques as appropriate to a performed exam including the following: Automated exposure control was utilized; adjustment of the MA and/or KV according to patient size; and use of iterative reconstruction technique.
--- NOTE | 2025-05-26 15:34 | RADIOLOGY REPORT ---
CLINICAL HISTORY: ABD pain TECHNIQUE: CT of the abdomen and pelvis was performed without intravenous contrast. This exam was performed according to our departmental dose optimization program. Up-to-date CT equipment and radiation dose reduction techniques are utilized as appropriate. CTDI: 16.22+ 0.14 DLP: 780.93 WID: COMPARISON: None FINDINGS: Lower Thorax: Normal-sized heart. At least mild coronary artery calcifications partially imaged. Linear bibasilar scarring or atelectasis. There is a right lower lobe pulmonary nodule measuring 1 cm on series 2, image 13. Liver and Biliary system: Normal-sized liver. Small hypodensity in segment 3 of the liver is not optimally evaluated without contrast. Gallbladder is normal caliber. There is no biliary ductal dilatation. Spleen: Unremarkable. Adrenal Glands and Kidneys: Normal adrenal glands. There is mild left hydroureteronephrosis with left urothelial thickening. No discrete obstructing calculus in the left renal collecting system. There is left perinephric and periureteral soft tissue stranding. No right hydronephrosis. Small hypodensity in the interpolar posterior right kidney which could reflect a cyst although not optimally evaluated without contrast. Pancreas and Retroperitoneum: Mild atrophy of the pancreas. Mildly prominent gastrohepatic ligament, retroperitoneal, and periportal lymph nodes although predominantly are normal-sized. Aorta and Major Vessels: Aortoiliac vessels are normal in caliber containing moderate calcified atherosclerotic plaque. Bowel, Mesentery and Peritoneal space: The small and large bowel loops are normal in caliber. Mild distal colonic diverticulosis. Trace ascites in the pelvis. No fluid collection or free air. Pelvis: Prior hysterectomy. Urinary bladder is minimally distended. There is no pelvic lymphadenopathy. Abdominal wall and Osseous Structures: Moderate to marked right hip osteoarthritis with joint space narrowing, prominent subchondral cyst formation and subchondral sclerosis. Moderate degenerative narrowing of the left hip joint space. There is a small right hip joint effusion. There is bony demineral ization. Multilevel moderate lower thoracic and lumbar spondylosis. IMPRESSION: 1. Mild left hydroureteronephrosis, left urothelial thickening and periureteral soft tissue stranding. This could be related to recent obstruction or ascending infection. Correlate with urinalysis. No discrete obstructing calculus is seen. 2. There is a 1 cm right lower lobe pulmonary nodule. This was present on CT chest dated 11/25/2023. Consider repeat imaging by November 2025 to confirm at least 2 year stability. 3. Partially imaged mild calcified coronary artery disease. 4. Mild distal colonic diverticulosis. 5. Moderate to marked right hip and moderate left hip osteoarthritis. Small right hip joint effusion.
[2025-05-26] MEDS: normal saline 1000ml 1,000 ML IV ONE (15:37)
[2025-05-26] MEDS: VANCOMYCIN/WATER FOR INJ (PEG) 1.5GM/300 ML IVPB IV ONE (15:38)
[2025-05-26] MEDS ORDERED: magnesium sulf-water 2g/50mL 50 ML IV PRN (15:40)
[2025-05-26] MEDS ORDERED: HYDROcodone/acetaminophen 5mg/325mg tablet PO PRN (15:40)
[2025-05-26] MEDS ORDERED: mag hydrox/Alum hydrox/simeth 30ml oral suspension PO PRN (15:40)
[2025-05-26] MEDS ORDERED: magnesium sulf-water 4G/100mL 100 ML IV PRN (15:40)
[2025-05-26] MEDS ORDERED: potassium Cl 20 mEq SR tablet PO PRN ×2 (15:40)
[2025-05-26] MEDS ORDERED: magnesium Cl slow-release 64mg tablet PO PRN (15:40)
[2025-05-26] MEDS ORDERED: ondansetron/PF 4mg/2ml inj IV PRN ×2 (15:40→16:45)
[2025-05-26] MEDS ORDERED: morphine 4 MG/ML inj SYRINge IV PRN (15:40)
[2025-05-26] MEDS ORDERED: potassium Cl 40MEQ/1/2NS 520ml 520 ML IV PRN (15:40)
[2025-05-26] MEDS: PERFLUTREN PROTEIN-A MICROSPHR (Optison) 0.22 MG/ML 3ML VIAL IV ONE (15:40)
[2025-05-26] MEDS ORDERED: magnesium hydroxide 30ml (MOM) UD suspension PO PRN (15:40)
[2025-05-26] MEDS ORDERED: piperacillin/tazo 3.375gm/50ml 50 ML IV SCH (16:00)
[2025-05-26] MEDS ORDERED: albuterol 2.5 MG/3 ML nebule NEB PRN (16:45)
[2025-05-26] MEDS: nicotine 21mg patch - 24 hr TD ONE (16:45)
[2025-05-26] MEDS ORDERED: ipratropium/albuterol 3ml nebule NEB SCH (16:45)
--- NOTE | 2025-05-26 17:01 | RADIOLOGY REPORT ---
CHEST RADIOGRAPH Indication: CHEST CONGESTION Technique: Single frontal view of the chest was obtained Comparison: DI CHEST,SINGLE VIEW on DOS: 03/22/23, CHEST,SINGLE VIEW on DOS: 11/17/22 FINDINGS: Lines and Tubes: None Lungs: No focal consolidation. Hyperinflation of the lungs with mild interstitial prominence. Bibasilar and right up to mid lung zone linear atelectasis /scarring. Pleura: No effusion. No pneumothorax. Cardiomediastinal contours: Unremarkable Bones: No acute osseous abnormality. IMPRESSION: Bibasilar and right upper to mid lung zone linear atelectasis/ scarring. No focal consolidation.
[2025-05-26 18:04] LABS: URINE AMPHETAMINE SCREEN NEGATIVE (Neg); URINE BARBITUATE SCREEN NEGATIVE (Neg); URINE BENZODIAZEPINES SCREEN NEGATIVE (Neg); URINE CANNABINOID SCREEN NEGATIVE (Neg); URINE COCAINE SCREEN NEGATIVE (Neg); URINE METHADONE SCREEN NEGATIVE (Neg); URINE OPIATE SCREEN NEGATIVE (Neg); URINE PHENCYCLIDINE SCREEN NEGATIVE (Neg)
--- NOTE | 2025-05-26 19:02 | HISTORY AND PHYSICAL-Residence ---
History & Physical Providers to CC Resident Creating Document: SARA LEUNG, RES CC: AGUILA SABILLON MD ~ History of Present Illness Primary Medical Doctor: Luci Reason for Admit\Complaint: Urinary tract infection, sepsis, BALAJI History of Present Illness 74-year-old female patient with past history of peripheral vascular disease with stents, history of right lung cancer status post radiation, hypertension presented to the ED with chief complaints of weakness for the last 1-1/2 week, but associated with any dizziness or syncopal attack, patient also stated that she has had multiple recurrent falls in the past, but not any recently. Patient also reported burning micturition for the last 2-3 days not associated with fever, chills. Patient denied any chief complaints of chest pain, abdominal pain, palpitations Patient's primary care doctor Luci HEBERT Patient lives in [place] alone Patient normally ambulates with a front walker wheelchair Allergies: Coded Allergies: shrimp (Verified Allergy, Severe, THROAT SWELLING, 05/26/25) Home Medications Home Medications Active Reported Clonidine HCl 0.1 Mg Tablet Ezetimibe 10 Mg Tablet 1 Tab PO DAILY Duloxetine HCl 60 Mg Capsule.dr 1 Cap PO DAILY Bupropion Xl (Bupropion HCl) 300 Mg Tab.er.24h 1 Tab PO DAILY Atorvastatin Calcium 80 Mg Tablet 1 Tab PO DAILY Lisinopril 30 Mg Tablet 1 Tab PO DAILY Clopidogrel (Clopidogrel Bisulfate) 75 Mg Tablet 1 Tab PO DAILY Duloxetine HCl 30 Mg Capsule.dr 2 Cap PO HS Lamotrigine 25 Mg Tablet 100 Mg PO BID Past Medical History Past Medical History Hypertension peripheral vascular disease right lung cancer status post radiation Past Surgical History Surgical History Comment total hysterectomy tonsillectomy bilateral cataracts bilateral knees replaced bilateral shoulders Cervical spine surgery-neck surgery post a traumatic fall-Posterior cervical fixation hardware Family History Family History: (CABG) Coronary artery bypass grafting FATHER (70 ) brother (55-58 years old) Past Social History Social History Comment Patient continues to drink alcohol-drinks about three beers and she has drank for the last 40 years Patient continues to smoke one pack of cigarettes for the last 40 years Denied any other drug use Smoking: Cigarettes, Greater than 1 pack/day Alcohol Use: Sober Drug Use: None Lives In: Home Occupation: disabled, retired ROS ROS Constitutional: No fever, dizziness, weakness present, no decrease in appetite HEENT: Normal vision. No sore throat, epistaxis, tinnitus Cardiovascular: No chest pain/discomfort, palpitations, syncope. no pedal edema Respiratory: No sob, cough,hemoptysis Gastrointestinal: No abdominal pain, nausea, vomiting. No diarrhea, melena. Genitourinary: No frquency, urgency, incontinence, nocturia. No dysuria, hematuria, burning micturition noted Musculoskeletal: Normal, no pains Endocrine: No fatigue, polydipsia, polyuria. No heat or cold intolerance Neurologic: No headache, vertigo. No weakness, numbness or tingling of extremities Psychiatric: No hallucinations/delusions, no anhedonia, no suicidal ideation; patient is extremely anxious and teary-eyed Hematologic: No bruises Exam Vitals: Vital Signs Date Time Temp Pulse Resp B/P (MAP) Pulse Ox O2 Delivery O2 Flow Rate FiO2 05/26/25 17:58 97.6 100 20 106/45 (65) 97 Room Air 05/26/25 11:51 0 General: General: Awake, oriented to person, place and time, extremely anxious and teary-eyed, pursed lip breathing noted HEENT: Conjunctive are pale, sclerae clear, no icterus, pupil is equal in both sides, reactive to light, no ear discharge, no pharyngeal erythema or an edema. Neck: Supple, no JVD, no lymphadenopathy and thyromegaly, postsurgical scar behind patient's neck cervical spine Chest: Increased work of breathing possibly due to her anxiety, pursed lip breathing, accessory muscle use, decreased breath sounds heard, decreased breath sounds heard in bilateral lung, no wheezing heard, bronchial sounds heard in bilateral lungs Cardiovascular: S1-S2 regular sinus rhythm and, regular rate, no gallops, no rubs, no murmurs Abdomen: No visible peristalsis, Bowel sounds present on auscultation, soft, no tenderness, no guarding, no rigidity Extremities: No obvious deformities, no pitting edema bilaterally, capillary refill intact, peripheral pulsations are intact on both sides, chronic venous insufficiency noted in bilateral extremity Neurologic: Mental status: alert and conscious, oriented to place, person and time, preserved memory, normal speech. Cranial nerves I-XII: Normal. Motor system: Preserved power, coordination, no evidenced involuntary movements, 5/5 strength in upper extremity, 2/5 strength in lower extremities 2+ deep tendon reflexes in biceps, triceps, quadriceps. Negative Babinski. Cerebellar: No nystagmus, dysdiadochokinesia, normal [id number] testing. Musculoskeletal: No joint swelling, deformities, inflammations, and no scoliosis and back tenderness Skin: Warm and dry. Dry oral mucosa. Diagnostic Data Last Recorded Lab Results: 05/26/25 1243 05/26/25 1243 Diagnostic Data: Laboratory Tests Test 05/26/25 12:43 Prothrombin Time 11.4 SECONDS (9.0-12.0) INR International Normalized Ratio 1.1 INR Coagulation Comments Counseling Services Smoking & Tobacco Cessation: 3-10 Minutes (Discussing smoking cessation with the patient including the risk continued smoking with the patient including: lung cancer, stroke, heart attack, poor wound healing, increase in facial drinking, risk of MRSA skin infections.) Advance Care Planning Advanced Care plannin - 30 Minutes (I spent 60 minutes talking with the patient regarding resuscitative methods, patient decided she want to be full code) Additional Plan Sepsis, present on admission SIRS criteria met: Heart rate >90 beats per minute, WBC count > 12,000 Secondary to UTI [place] [address], elevated neutrophils, lactic acid was 2.5 down to 0.7, procalcitonin normal Patient's urinalysis was positive for leukocyte esterase and too many to count WBCs Patient received aggressive intravenous fluid resuscitation in accordance with sepsis protocol Patient received 3 L of fluid, and initiated the patient on 100 mL normal saline Although patient's proBNP is elevated 589, chest x-ray was clear for any congestion: Fluid resuscitation justified in view of sepsis Plan: Initiated the patient on vancomycin and Zosyn Continue normal saline at 100 mL/hour Follow up with urine cultures and sensitivities COPD not in acute exacerbation Patient is currently on room air saturating at 96% not requiring any oxygen Chest x-ray shows: Bibasilar and right upper to mid lung zone linear atelectasis/ scarring Initiated the patient on breathing treatment: Albuterol q.2h p.r.n., DuoNebs q.4h scheduled Initiated oxygen if patient's saturation drops below 94% BALAJI on CKD, possibly due to vasomotor nephropathy Patient's creatinine is elevated 1.93, for creatinine of one year back was normal Ordered urine lytes Continue hydration Hyponatremia, not symptomatic Patient's sodium is currently 130 Ordered urine lytes and serum osmolality Continue normal saline at 100 mL/hour Hypertension Patient has history of hypertension, patient normally takes lisinopril 30 mg, Her blood pressure is low right now Hold antihypertensive medications at this point History of recurrent falls And has a history of recurrent falls in the past, however she stated she has not had a fall recently CT head was done which was negative cervical spine x-ray was done which was negative for any recent falls Follow precautions in place Hyperlipidemia Ordered lipid profile Patient's home medication atorvastatin 80 mg Continue once med rec is completed Tobacco use disorder Discussing smoking cessation with the patient including the risk continued smoking with the patient including: lung cancer, stroke, heart attack, poor wound healing, increase in facial drinking, risk of MRSA skin infections. Initiated the patient on nicotine patch 21 mg t.i.d. Alcohol use disorder CIWA score 15 Patient appears anxious Patient stated that her last drink was five days ago, Blood ETOH pending Patient's AST is elevated at 42 Initiated the patient on moderate alcohol withdrawal instructional media services technician and substance use navigator consulted Code Status: Full code DVT Prophylaxis: Heparin Lines/Tubes: PIV Nutrition: Heart healthy diet PT:yes Prognosis: Guarded Disposition: Continue to monitor the patient, follow-up with labs, follow up with urine culture. Med rec pending Sara Leung MD Internal medicine resident,PGY-1 Date of Service: May 26, 2025 Billing Provider: AGUILA SABILLON MD, JAHNAVI, RES May 26, 2025 19:02
[2025-05-26 19:23] LABS: ETHANOL < 10 MG/DL (<10)
--- NOTE | 2025-05-26 19:39 | CARDIOLOGY REPORT ---
APPROVED REPORT EXAM: Comprehensive 2D, Doppler, and color-flow Echocardiogram. Patient Location: [address] Blood Pressure: 106/45 mmHg Heart Rate: 94 bpm Rhythm: Sinus Rhythm Indications Congestive Heart Failure Weakness/Falls Hypertension Hx of PVD Hx of Lung Cancer (Right) s/p Radiation Art Model: None Previous echo: 05/11/2014 [facility] EF:75% 2D Dimensions RVDd 3.6 cm LA Diam 3.8 cm IVSd 0.9 (0.7-1.1cm) LVDd 4.4 cm PWd 0.9 (0.7-1.1cm) IVSs 1.3 (0.8-1.2cm) RA Minor 3.6 cm LVDs 3.1 (2.5-4.0cm) Aortic Root(2D) 3.2 cm PWs 1.2 (0.8-1.2cm) LVOT Diameter 2.08 (1.8-2.4cm) LVEF(%) 55.2 (>50%) IVC 17.90 mm FS (%) 28.5 % SV 47.1 ml CO 9.4 L/min M-Mode Dimensions RVDd 3.13 (2.1-3.2cm) Left Atrium(MM) 3.87 (2.5-4.0cm) IVSd 1.19 (0.7-1.1cm) LVDd 5.40 (4.0-5.6cm) Aortic Root 3.30 (2.2-3.7cm) PWd 1.11 (0.7-1.1cm) Aortic Cusp Exc 1.89 (1.5-2.0cm) IVSs 1.52 cm LVDs 3.54 (2.0-3.8cm) FS (%) 33 % PWs 1.21 cm ESV(Teich) 52.3 ml LVEF(%) 61 (>50%) Aortic Valve AoV Peak Ephraim. 193.1 cm/s AoV VTI 33.3 cm AO Peak GR. 14.9 mmHg AO Mean GR. 8 mmHg LVOT VTI 24.50 cm LVOT Peak Ephraim. 135.3 cm/s CALVIN(VTI)/BSA 2.51 cm2/m2 CALVIN (VTI) 2.51 cm2 AV DI 0.74 % Mitral Valve MV E Velocity 81.7 cm/s MV Peak Gr. 5 mmHg MV DECEL TIME 192 ms MV A Velocity 118.1 cm/s MV Mean Gr. 2 mmHg MV PHT 68 ms E/A Ratio 0.7 MVA (PHT) 3.24 cm2 MV VMax 106.5 cm/s MV VMean 76.6 cm/s MVA VTI 4.19 cm2 MV VTI 19.9 cm Tricuspid Valve TR P. Velocity 315 cm/s RAP ESTIMATE 10 mmHg TR Peak Gr. 40 mmHg RVSP 50 mmHg LEFT VENTRICLE Normal LV size and wall thickness. Overall systolic function is normal. Overall LVEF is 60%. RIGHT VENTRICLE Right ventricle is mildly dilated with adequate function. Estimated PA systolic pressure is 50 mmHg. ATRIA The left atrium size is normal. The right atrium size is normal. AORTIC VALVE Trileaflet AV appears sclerotic without stenosis. Trace insufficiency. MITRAL VALVE Mild MV annular calcification without stenosis. Trace regurgitation. TRICUSPID VALVE TV appears structurally normal with trace regurgitation. Elevated right heart pressures as noted above. PULMONIC VALVE Grossly normal PV without stenosis, physiologic insufficiency. GREAT VESSELS The aortic root is normal in size. IVC is normal in size and collapses less than 50% with inspiration. PERICARDIUM Normal pericardium. No pericardial effusion seen. Other Information Study Quality: Fair. TDS due to patients mental status, inability to remain still. Conclusion Normal LV size and wall thickness. Overall systolic function is normal. Overall LVEF is 60%. Right ventricle is mildly dilated with adequate function. Estimated PA systolic pressure is 50 mmHg. The left atrium size is normal. The right atrium size is normal. Trileaflet AV appears sclerotic without stenosis. Trace insufficiency. Mild MV annular calcification without stenosis. Trace regurgitation. TV appears structurally normal with trace regurgitation. Normal pericardium. No pericardial effusion seen.
[2025-05-26 19:48] LABS: CHOL/HDL RATIO 2.5 (0.00-4.99); LDL CHOLESTEROL 38 MG/DL (50-100)
[2025-05-26] MEDS: docusate sod 100mg capsule PO SCH (20:00)
[2025-05-26] MEDS: K and/or MAG REPLACEMENT MC SCH (20:00)
[2025-05-26] MEDS ORDERED: VANCOmycin 1250MG/NS 250ml Bag 250 ML IV SCH (20:00)
[2025-05-26] MEDS: ringers solution, lacted 1,000 ML IV ONE (20:04)
[2025-05-26] MEDS: ipratropium/albuterol 3ml nebule NEB SCH (20:09)
[2025-05-26] MEDS: thiamine 100mg/ml 2ml inj. IV SCH (20:10)
[2025-05-26] MEDS: nicotine 21mg patch - 24 hr TD SCH (20:19)
[2025-05-26] MEDS: heparin, porcine 5000 units/ml vial SQ SCH (20:21)
[2025-05-26 20:41] LABS: OSMOLALITY 272 MOSM/K (280-300)
[2025-05-26] MEDS: piperacillin/tazo 3.375gm/50ml 50 ML IV SCH (22:01)
[2025-05-26] MEDS: normal saline 1000ml 1,000 ML IV SCH (22:12)
[2025-05-27] VITALS (18 sets, daily range): BP systolic 94–136; BP diastolic 42–68; PULSE 60–115; RESP 16–48; TEMP 96.9–98.4; O2SAT 90–99
[2025-05-27 04:44] LABS: CREATININE,URINE RANDOM 68.0 MG/DL
[2025-05-27 04:55] LABS: OSMOLALITY UA 342.0 MOSM/K (50-1400)
[2025-05-27 06:26] LABS: MEAN PLATELET VOLUME 7.0 FL (7.4-10.4); RED CELL DISTRIBUTION WIDTH 13.4 % (11.5-14.5)
[2025-05-27 07:03] LABS: CREATININE 1.42 MG/DL (0.40-0.90); TOTAL CARBON DIOXIDE 22.5 MMOL/L (24-32); eCRCL 26 ML/MIN; eGFR 36 ML/MIN
[2025-05-27] MEDS: folic acid 1mg/0.2ml inj IV SCH (10:27)
--- NOTE | 2025-05-27 13:46 | VASCULAR REPORT ---
CLINICAL HISTORY: Left left upper extremity pain and swelling TECHNIQUE: Color and duplex doppler imaging of the left upper extremity veins and left subclavian vein was performed. Vessel compression if possible was also performed. WID: COMPARISON: None FINDINGS: Acute /subacute hypoechoic nonocclusive thrombus in the left basilic vein at the antecubital fossa. The left internal jugular, axillary, basilic vein at the forearm and bicep, cephalic, brachial , radial, and ulnar veins are patent and demonstrate normal compressibility and flow. The left subclavian is patent. IMPRESSION: 1. NO SONOGRAPHIC EVIDENCE FOR DEEP VENOUS THROMBOSIS IN THE LEFT UPPER EXTREMITY VEINS. 2. Superficial vein thrombus in the basilic vein in the antecubital fossa. Acute /subacute appearing.
[2025-05-27] MEDS: vancomycin inj. 750 MG in normal saline 250ml IV soln 250 ML IV SCH (15:12)
[2025-05-27] MEDS ORDERED: vancomycin inj 500 MG in normal saline 100ml IV soln 100 ML IV SCH (16:00)
--- NOTE | 2025-05-27 16:49 | PROGRESS NOTE- Residence ---
Progress Note - Resident Providers to CC Resident Creating Document: HANDYTERENCE PATRICIARACHNA DUARTE ~ Antibiotic Timeout Antibiotic Ordered?: Yes Subjective Seen and examined the patient at bedside. She is endorsing that she is improving with the weakness and he her symptom of burning micturition. Objective Vital Signs Date Time Temp Pulse Resp B/P (MAP) Pulse Ox O2 Delivery O2 Flow Rate FiO2 05/27/25 15:31 92 18 Room Air 0.0 05/27/25 15:24 94 21 05/27/25 11:00 97.7 112/58 (76) Result Diagram: 05/27/25 0604 05/27/25 06 General: Awake, oriented to person, place and time, not in acute distress HEENT: Conjunctive are pale, sclerae clear, no icterus, pupil is equal in both sides, reactive to light, no ear discharge, no pharyngeal erythema or an edema. Neck: Supple, no JVD, no lymphadenopathy and thyromegaly, postsurgical scar behind patient's neck cervical spine Chest: decreased breath sounds heard in bilateral lower zones of lung, no wheezing heard, bronchial sounds heard in bilateral lungs Cardiovascular: S1-S2 regular sinus rhythm and, regular rate, no gallops, no rubs, no murmurs Abdomen: No visible peristalsis, Bowel sounds present on auscultation, soft, no tenderness, no guarding, no rigidity Extremities: No obvious deformities, no pitting edema bilaterally, capillary refill intact, peripheral pulsations are intact on both sides, chronic venous insufficiency noted in bilateral extremity Neurologic: Mental status: alert and conscious, oriented to place, person and time, preserved memory, normal speech. Cranial nerves I-XII: Normal. Motor system: Preserved power, coordination, no evidenced involuntary movements, 5/5 strength in upper extremity, 2/5 strength in lower extremities 2+ deep tendon reflexes in biceps, triceps, quadriceps. Negative Babinski. Cerebellar: No nystagmus, dysdiadochokinesia, normal [id number] testing. Musculoskeletal: No joint swelling, deformities, inflammations, and no scoliosis and back tenderness Skin: Warm and dry. Dry oral mucosa. Coagulation Studies Laboratory Tests Test 05/26/25 12:43 Prothrombin Time 11.4 SECONDS (9.0-12.0) INR International Normalized Ratio 1.1 INR Coagulation Comments Advance Care Planning Advanced Care plannin - 30 Minutes Plan Plan Sepsis secondary to UTI, Gram-negative rods Tachypnea is present currently on room air maintaining oxygen saturation at 94. White blood cells are improving, 16.1 Patient's urinalysis was positive for leukocyte esterase and too many to count WBCs Lactic acid is trended down to normal with IV fluid resuscitation Continuing IV normal saline at the rate of 100 mL/hour Although patient's proBNP is elevated 589, chest x-ray was clear for any congestion: Fluid resuscitation justified in view of sepsis Plan: We will continue vanc and Zosyn and we will discontinue vanc from tomorrow if cultures are negative for MRSA Preliminary blood culture is negative Acute hypoxemic respiratory failure secondary to Acute exacerbation of COPD Pulmonary hypertension Patient is currently on room air saturating at 96% not requiring any oxygen Chest x-ray shows: Bibasilar and right upper to mid lung zone linear atelectasis/ scarring Initiated the patient on breathing treatment: Albuterol q.2h p.r.n., DuoNebs q.4h scheduled Initiated oxygen if patient's saturation drops below 94% Not initiated on steroid therapy because of underlying sepsis with UTI BALAJI on CKD, possibly due to vasomotor nephropathy Above likely secondary to sepsis with UTI Serum creatinine is 1.42, improved Serum osmolality is 272, urine osmolality 342, urine random creatinine is 68, urine random sodium is 34 Currently on IV normal saline at the rate of 100 mL/hour Hypotonic Hyponatremia, improved Patient's sodium is currently 135 Continue normal saline at 100 mL/hour Hypertension Patient has history of hypertension, patient normally takes lisinopril 30 mg, Held home medications of clonidine, lisinopril History of recurrent falls And has a history of recurrent falls in the past, however she stated she has not had a fall recently CT head was done which was negative cervical spine x-ray was done which was negative for any recent falls Follow precautions in place Hyperlipidemia LDL is 38 on 05/26/2025 We will continue Atorvastatin 20 mg Tobacco use disorder Discussing smoking cessation with the patient including the risk continued smoking with the patient including: lung cancer, stroke, heart attack, poor wound healing, increase in facial drinking, risk of MRSA skin infections. We will continue nicotine patch 21 mg t.i.d. Alcohol use disorder CIWA score 15 Patient stated that her last drink was five days ago, ETOH is less than 10 Patient's AST is elevated at 42 We will continue moderate alcohol withdrawal environmental services worker and substance use navigator consulted Code Status: Full code DVT Prophylaxis: Heparin Lines/Tubes: PIV Nutrition: Heart healthy diet PT:yes Prognosis: Guarded Disposition: Anticipate discharge in a.m. if PT cleared with albuterol and Symbicort inhaler. Bill Elias IM resident, PGY 2 Date of Service: May 27, 2025 Billing Provider: AGUILA SABILLON MD, VENKATESH, RES May 27, 2025 16:49
[2025-05-28] VITALS (20 sets, daily range): BP systolic 102–164; BP diastolic 40–98; PULSE 83–137; RESP 15–45; TEMP 96.9–98.1; O2SAT 43–96
[2025-05-28 06:30] LABS: MEAN PLATELET VOLUME 6.6 FL (7.4-10.4); RED CELL DISTRIBUTION WIDTH 13.9 % (11.5-14.5)
[2025-05-28 06:48] LABS: CREATININE 1.05 MG/DL (0.40-0.90); TOTAL CARBON DIOXIDE 22.5 MMOL/L (24-32); eCRCL 35 ML/MIN; eGFR 51 ML/MIN
[2025-05-28] MEDS: duloxetine 30mg CAPSULE.DR PO SCH (07:36)
[2025-05-28] MEDS: BUPROPION HCL 150MG XL 24 HR 150 MG TAB PO SCH (07:37)
[2025-05-28] MEDS: nicotine 21mg patch - 24 hr TD SCH (07:39)
[2025-05-28] MEDS ORDERED: vancomycin/NS 1 GM ADD-VANTAGE 250 ML X 1 DOSE IV SCH (14:00)
--- NOTE | 2025-05-28 16:26 | PROGRESS NOTE- Residence ---
Progress Note - Resident Providers to CC Resident Creating Document: LISA SHAFFER RES ~ Antibiotic Timeout Antibiotic Ordered?: Yes Subjective Patient was seen and examined at bedside. She claims that urinary symptoms along with weakness have improved. PT recommended post acute care, patient will be transferred to [facility] on p.o. antibiotics in a.m.. 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 Iqbal. Sutures are currently in place. Had a conversation with Dr. Fontana ([phone]); recommended to remove sutures prior to discharge. Objective Vital Signs Date Time Temp Pulse Resp B/P (MAP) Pulse Ox O2 Delivery O2 Flow Rate FiO2 05/28/25 15:35 99 20 Room Air 0.0 05/28/25 15:27 94 21 05/28/25 15:00 97.0 148/75 (99) Result Diagram: 05/28/25 0611 05/28/25 0611 General: Awake, oriented to person, place and time, not in acute distress HEENT: Conjunctive are pale, sclerae clear, no icterus, pupil is equal in both sides, reactive to light, no ear discharge, no pharyngeal erythema or an edema. Neck: Supple, no JVD, no lymphadenopathy and thyromegaly, postsurgical scar behind patient's neck cervical spine Chest: decreased breath sounds heard in bilateral lower zones of lung, no wheezing heard, vesicular breath sounds present bilaterally Cardiovascular: S1-S2 regular sinus rhythm and, regular rate, no gallops, no rubs, no murmurs Abdomen: No visible peristalsis, Bowel sounds present on auscultation, soft, no tenderness, no guarding, no rigidity Extremities: No obvious deformities, no pitting edema bilaterally, capillary refill intact, peripheral pulsations are intact on both sides Neurologic: Mental status: alert and conscious, oriented to place, person and time, preserved memory, normal speech. Cranial nerves I-XII: Normal. Motor system: Preserved power, coordination, no evidenced involuntary movements, 5/5 strength in upper extremity, 2/5 strength in lower extremities 2+ deep tendon reflexes in biceps, triceps, quadriceps. Negative Babinski. Cerebellar: No nystagmus, dysdiadochokinesia, normal [id number] testing. Musculoskeletal: No joint swelling, deformities, inflammations, and no scoliosis and back tenderness Skin: Warm and dry. Dry oral mucosa. Coagulation Studies Laboratory Tests Test 05/26/25 12:43 Prothrombin Time 11.4 SECONDS (9.0-12.0) INR International Normalized Ratio 1.1 INR Coagulation Comments Advance Care Planning Advanced Care plannin - 30 Minutes Plan Plan Sepsis secondary to UTI, Gram-negative rods Tachypnea is present currently on room air maintaining oxygen saturation at 94. White blood cells are improving from 16.1 to 12 today Patient's urinalysis was positive for leukocyte esterase and too many to count WBCs Although patient's proBNP is slightly elevated 589; chest x-ray was clear for any congestion and Fluid resuscitation is continued: IV normal saline at the rate of 100 mL/hour Lactic acid normalized Urine cultures grew: Pansensitive E coli Discontinued vancomycin and Zosyn today; initiated ceftriaxone 2 g IV daily Blood cultures negative until now Acute hypoxemic respiratory failure secondary to Acute exacerbation of COPD Pulmonary hypertension Patient is currently on room air saturating at 96% not requiring any oxygen Chest x-ray shows: Bibasilar and right upper to mid lung zone linear atelectasis/ scarring Continue breathing treatment: Albuterol q.2h p.r.n., DuoNebs q.4h scheduled Initiate oxygen if patient's saturation drops below 94% Currently not initiating steroid therapy due to underlying sepsis secondary to UTI BALAJI on CKD, possibly due to vasomotor nephropathy Above likely secondary to sepsis with UTI Serum creatinine improved to 1.02 Serum osmolality is 272, urine osmolality 342, urine random creatinine is 68, urine random sodium is 34 Currently on IV normal saline at the rate of 100 mL/hour Hypotonic Hyponatremia, resolved Hypertension Patient has history of hypertension, patient normally takes lisinopril 30 mg, Held home medications of clonidine, lisinopril History of recurrent falls Stated she has not had a fall recently CT head was done which was negative cervical spine x-ray was done which was negative for any recent falls Follow precautions in place Hyperlipidemia LDL is 38 on 05/26/2025 We will continue Atorvastatin 20 mg Tobacco use disorder Discussing smoking cessation with the patient including the risk continued smoking with the patient including: lung cancer, stroke, heart attack, poor wound healing, increase in facial drinking, risk of MRSA skin infections. We will continue nicotine patch 21 mg t.i.d. Alcohol use disorder CIWA score 15 Patient stated that her last drink was five days ago, ETOH is less than 10 Patient's AST is elevated at 42 We will continue moderate alcohol withdrawal client services account manager and substance use navigator consulted Code Status: Full code DVT Prophylaxis: Heparin Lines/Tubes: PIV Nutrition: Heart healthy diet PT: Recommended post acute care Prognosis: Guarded Disposition: Patient is accepted at [facility]; discharge tomorrow in a.m. Lisa Shaffer MD Internal Medicine Resident, PGY-2 Date of Service: May 28, 2025 Billing Provider: AGUILA SABILLON MD, GAURAV, RES May 28, 2025 16:26
[2025-05-29] VITALS (16 sets, daily range): BP systolic 99–174; BP diastolic 58–98; PULSE 92–132; RESP 18–25; TEMP 97.6–98.4; O2SAT 93–100
[2025-05-29] MEDS: HYDROmorphone/PF 0.2 MG/ML SYRINGE IV PRN (02:44)
[2025-05-29 07:21] LABS: MEAN PLATELET VOLUME 6.6 FL (7.4-10.4); RED CELL DISTRIBUTION WIDTH 13.7 % (11.5-14.5)
[2025-05-29 07:39] LABS: CREATININE 1.02 MG/DL (0.40-0.90); TOTAL CARBON DIOXIDE 24.3 MMOL/L (24-32); eCRCL 36 ML/MIN; eGFR 53 ML/MIN
[2025-05-29] MEDS: CefTRIAXone 2gm/D5W 50ml BAG 50 ML IV SCH (07:54)
[2025-05-29] MEDS: metoprolol tartrate 1mg/ml inj IV ONE (13:21)
[2025-05-29] MEDS ORDERED: VANCOMYCIN LEVEL IV ONE (14:30)
--- NOTE | 2025-05-29 18:49 | DISCHARGE SUMMARY-Residence ---
Discharge Summary Providers to CC Resident Creating Document: LISA SHAFFER, RES ~ Discharge Summary Admission Diagnosis: SEPSIS 2/2 UTI,ENCEPHALOPATHY Hospital Course DATE OF ADMISSION: 05/26/2025 DATE OF DISCHARGE: 05/29/2025 Discharge Diagnosis\Comment: Sepsis secondary to UTI, Gram-negative rods Acute hypoxemic respiratory failure secondary to Acute exacerbation of COPD Pulmonary hypertension BALAJI on CKD, possibly due to vasomotor nephropathy Above likely secondary to sepsis with UTI Hypotonic Hyponatremia, resolved Hypertension History of recurrent falls Hyperlipidemia Tobacco use disorder Alcohol use disorder CIWA score 15 Operations\Procedures: None Consultants: None Complications: None Condition on DC: Stable Discharge Summary: Medications on discharge: Clonidine HCl 0.1 Mg Tablet Ezetimibe 10 Mg Tablet 1 Tab PO DAILY Duloxetine HCl 60 Mg Capsule.dr 1 Cap PO DAILY Bupropion Xl (Bupropion HCl) 300 Mg Tab.er.24h 1 Tab PO DAILY Atorvastatin Calcium 80 Mg Tablet 1 Tab PO DAILY Lisinopril 30 Mg Tablet 1 Tab PO DAILY Clopidogrel (Clopidogrel Bisulfate) 75 Mg Tablet 1 Tab PO DAILY- Lamotrigine 25 Mg Tablet 100 Mg PO BID Cefdinir 300 mg p.o. daily for 5 days [place] [id number] mmu, p.o. daily HPI as per admitting physician: 74-year-old female patient with past history of peripheral vascular disease with stents, history of right lung cancer status post radiation, hypertension presented to the ED with chief complaints of weakness for the last 1-1/2 week, but associated with any dizziness or syncopal attack, patient also stated that she has had multiple recurrent falls in the past, but not any recently. Patient also reported burning micturition for the last 2-3 days not associated with fever, chills. Patient denied any chief complaints of chest pain, abdominal pain, palpitations Patient's primary care doctor Luci HEBERT Patient lives in [place] alone Patient normally ambulates with a front walker wheelchair Hospital course: The patient was admitted with sepsis secondary to urinary tract infection (UTI). Initial urinalysis showed positive leukocyte esterase with too numerous to count WBCs, and the patient was tachypneic but maintaining oxygen saturation at 94% on room air. Initial laboratory studies revealed leukocytosis with WBC 16.1 which gradually trended down to 12. Lactic acid was elevated on admission but trended down to normal following intravenous fluid resuscitation with normal saline at 100 mL/hour. Although the patients proBNP was elevated at 589, chest X-ray did not show evidence of pulmonary congestion, supporting continued hydration in the context of sepsis. Empiric antibiotic therapy with vancomycin and Zosyn was initiated. Preliminary blood cultures remained negative, and urine cultures later grew liu-sensitive Escherichia coli. Based on sensitivities, the antibiotic regimen was de- escalatedvancomycin and Zosyn were discontinued, and ceftriaxone was started. The patient demonstrated good clinical improvement with resolution of sepsis markers, downtrending WBC count, and normalization of lactic acid. She was later transitioned to oral cefdinir for completion of the antibiotic course upon discharge. The patient also had a history of acute hypoxemic respiratory failure secondary to acute exacerbation of COPD, currently resolved. She was maintained on room air with SpO2 96%. Chest X-ray showed bibasilar and right upper to mid-lung atelectasis and scarring. Breathing treatments with albuterol q2h PRN and scheduled DuoNebs q4h were continued. Steroids were deferred due to concurrent sepsis. For hypertension, home medications including lisinopril and clonidine were held during the acute phase; blood pressure remained stable throughout hospitalization. Hyperlipidemia was managed with continuation of atorvastatin 20 mg daily (LDL 38 mg/dL on 05/26/2025). The patient had a background of chronic kidney disease with acute kidney injury on admission, likely due to sepsis-induced vasomotor nephropathy. Serum creatinine improved from baseline to 1.42 mg/dL with IV fluids. Urine studies showed serum osmolality 272, urine osmolality 342, urine sodium 34, and urine creatinine 68, consistent with prerenal physiology. The patient also had a history of alcohol use disorder, with last alcohol intake five days before admission. Admission CIWA score was 15, and ethanol level was <10. AST was mildly elevated at 42. She was managed under a moderate alcohol withdrawal protocol, and health and social care teacher and substance use navigator were consulted for ongoing support. The patients tobacco use disorder was addressed with counseling on smoking cessation and risks of continued smoking. A nicotine patch 21 mg was continued. By discharge, the patient was afebrile, hemodynamically stable, tolerating oral intake, with improved kidney function and no further signs of sepsis. She was discharged to [facility] on oral cefdinir to complete the antibiotic course, with close outpatient follow-up recommended. Imaging: Cervical spine CT: No evidence of acute cervical spine fracture or traumatic malalignment Chest Xray: Bibasilar and right upper to mid lung zone linear atelectasis/ scarring. No focal consolidation. Head CT: No intracranial hemorrhage or mass effect. Moderate chronic microvascular ischemic changes. Mild global cerebral volume loss. Abdomen/pelvis CT: 1. Mild left hydroureteronephrosis, left urothelial thickening and periureteral soft tissue stranding. This could be related to recent obstruction or ascending infection. Correlate with urinalysis. No discrete obstructing calculus is seen. 2. There is a 1 cm right lower lobe pulmonary nodule. This was present on CT chest dated 11/25/2023. Consider repeat imaging by November 2025 to confirm at least 2 year stability. 3. Partially imaged mild calcified coronary artery disease. 4. Mild distal colonic diverticulosis. 5. Moderate to marked right hip and moderate left hip osteoarthritis. Small right hip joint effusion. Echocardiogram: Normal LV size and wall thickness. Overall systolic function is normal. Overall LVEF is 60%. Right ventricle is mildly dilated with adequate function. Estimated PA systolic pressure is 50 mmHg. The left atrium size is normal. The right atrium size is normal. Trileaflet AV appears sclerotic without stenosis. Trace insufficiency. Mild MV annular calcification without stenosis. Trace regurgitation. TV appears structurally normal with trace regurgitation. Normal pericardium. No pericardial effusion seen. Vascular US. NO SONOGRAPHIC EVIDENCE FOR DEEP VENOUS THROMBOSIS IN THE LEFT UPPER EXTREMITY VEINS. 2. Superficial vein thrombus in the basilic vein in the antecubital fossa. Acute /subacute appearing. Physical examination today: General: Awake, oriented to person, place and time, not in acute distress HEENT: Conjunctive are pale, sclerae clear, no icterus, pupil is equal in both sides, reactive to light, no ear discharge, no pharyngeal erythema or an edema. Neck: Supple, no JVD, no lymphadenopathy and thyromegaly, postsurgical scar behind patient's neck cervical spine Chest: decreased breath sounds heard in bilateral lower zones of lung, no wheezing heard, vesicular breath sounds present bilaterally Cardiovascular: S1-S2 regular sinus rhythm and, regular rate, no gallops, no rubs, no murmurs Abdomen: No visible peristalsis, Bowel sounds present on auscultation, soft, no tenderness, no guarding, no rigidity Extremities: No obvious deformities, no pitting edema bilaterally, capillary refill intact, peripheral pulsations are intact on both sides Neurologic: Mental status: alert and conscious, oriented to place, person and time, preserved memory, normal speech. Cranial nerves I-XII: Normal. Motor system: Preserved power, coordination, no evidenced involuntary movements, 5/5 strength in upper extremity, 2/5 strength in lower extremities 2+ deep tendon reflexes in biceps, triceps, quadriceps. Negative Babinski. Cerebellar: No nystagmus, dysdiadochokinesia, normal [id number] testing. Musculoskeletal: No joint swelling, deformities, inflammations, and no scoliosis and back tenderness Skin: Warm and dry. Dry oral mucosa. Laboratory Tests Test 05/28/25 06:11 05/29/25 07:00 White Blood Count 12.5 X10'3 12.7 X10'3 Red Blood Count 3.56 X10'6 3.44 X10'6 Hemoglobin 11.2 g/dl 11.0 g/dl Hematocrit 32.9 % 31.8 % Mean Corpuscular Volume 92.6 FL 92.4 FL Mean Corpuscular Hemoglobin 31.6 PG 32.1 PG Mean Corpuscular Hemoglobin Concent 34.1 g/dL 34.7 g/dL Red Cell Distribution Width 13.9 % 13.7 % Platelet Count 368 X10'3 370 X10'3 Mean Platelet Volume 6.6 FL 6.6 FL Neutrophils (%) (Auto) 79.7 % 81.0 % Lymphocytes (%) (Auto) 13.0 % 10.9 % Monocytes (%) (Auto) 5.7 % 5.7 % Eosinophils (%) (Auto) 1.1 % 1.7 % Basophils (%) (Auto) 0.5 % 0.7 % Neutrophils # (Auto) 10.0 X10'3 10.3 X10'3 Lymphocytes # (Auto) 1.6 X10'3 1.4 X10'3 Monocytes # (Auto) 0.7 X10'3 0.7 X10'3 Eosinophils # (Auto) 0.1 X10'3 0.2 X10'3 Basophils # (Auto) 0.1 X10'3 0.1 X10'3 CBC Comment Sodium Level 138 MMOL/L 138 MMOL/L Potassium Level 4.2 MMOL/L 4.0 MMOL/L Chloride Level 105 MMOL/L 105 MMOL/L Carbon Dioxide Level 22.5 MMOL/L 24.3 MMOL/L Anion Gap 11 9 Blood Urea Nitrogen 16 MG/DL 12 MG/DL Creatinine 1.05 MG/DL 1.02 MG/DL Estimated GFR/1.73 m2 51 ML/MIN 53 ML/MIN BUN/Creatinine Ratio 15.2 11.8 Glucose Level 88 MG/DL 78 MG/DL Calcium Level 8.6 MG/DL 8.7 MG/DL Magnesium Level 1.8 MG/DL 1.6 MG/DL Total Bilirubin 0.5 MG/DL 0.5 MG/DL Aspartate Amino Transf (AST/SGOT) 40 U/L 29 U/L Alanine Aminotransferase (ALT/SGPT) 53 U/L 52 U/L Alkaline Phosphatase 119 IU/L 122 IU/L Total Protein 6.7 G/DL 6.9 G/DL Albumin 2.3 G/DL 2.3 G/DL Globulin 4.4 G/DL 4.6 G/DL Albumin/Globulin Ratio 0.5 0.5 Chemistry Comments Advise on discharge: Continue medications cefdinir for 5 days Rehab MD resume care New PT/OT services *Problems/Diagnosis: (1) UTI (urinary tract infection) (2) Sepsis Total Time Spent on D/C: > 30 Minutes Date of Service: May 29, 2025 Billing Provider: AGUILA SABILLON MD, GAURAV, RES May 29, 2025 18:49
== END 2025-05-29 16:24 | DRG 871 ==
LOC: ER 11:44 → ED HOLD 15:31 → PCU 3S 17:55
PROVIDERS: ADMIT Family Medicine; ATTEND Family Medicine
DX: A41.59 Other Gram-negative sepsis (principal); J96.01 Acute respiratory failure with hypoxia; N17.0 Acute kidney failure with tubular necrosis; N39.0 Urinary tract infection, site not specified; J44.1 Chronic obstructive pulmonary disease with (acute) exacerbation; E87.1 Hypo-osmolality and hyponatremia; F32.A Depression, unspecified; I12.9 Hypertensive chronic kidney disease with stage 1 through stage 4 chronic kidney disease, or unspecified chronic kidney disease; Z20.822 Contact with and (suspected) exposure to COVID-19; N18.9 Chronic kidney disease, unspecified; I73.9 Peripheral vascular disease, unspecified; E78.00 Pure hypercholesterolemia, unspecified; Z85.118 Personal history of other malignant neoplasm of bronchus and lung; Z95.1 Presence of aortocoronary bypass graft; Z91.013 Allergy to seafood; Z79.01 Long term (current) use of anticoagulants; Z79.899 Other long term (current) drug therapy; Z79.84 Long term (current) use of oral hypoglycemic drugs; Z92.3 Personal history of irradiation
CPT/HCPCS: 36415; 70450; 71045; 72125; 74176; 80048; 80053; 80061; 80076; 80202; 80305; 80320; 81001; 82550; 82570; 83036; 83605; 83690; 83735; 83880; 83930; 83935; 84100; 84145; 84300; 84443; 84484; 85025; 85610; 87040; 87077; 87081; 87088; 87186; 87324; 87449; 87804; 87811; 93306; 93971; 94640; 94760; 96374; 97116; 97161; 97530; 99285; A4615; A6258; G0378; J0696; J1171; J1644; J2543; J3373; J3375; J3411; J3490; J7030; J7040; J7050; J7120

== ENCOUNTER 2025-06-13 13:22 | Inpatient (IN) | payer MEDICARE, OTHER, MEDICAID ==
[~2025-06-13] VITALS: Ht 154.9 cm; Wt 75.0 kg
[2025-06-13] VITALS (7 sets, daily range): BP systolic 123; BP diastolic 69; PULSE 92–120; RESP 13–24; TEMP 98.1; O2SAT 94–99
--- NOTE | 2025-06-13 13:39 | ELECTROCARDIOGRAPH REPORT ---
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 David Ulloa Measurements Intervals [place] Rate: 126 P: 65 VA: 277 QRS: 59 QRSD: 87 T: 102 QT: 335 QTc: 486 Interpretive Statements Atrial-paced complexes Prolonged VA interval Consider left atrial enlargement Low voltage, precordial leads Nonspecific T abnormalities, lateral leads Electronically Signed On 06-14-2025 18:48:[address] David Ulloa Please click the below link to view image of tracing.
[2025-06-13] MEDS: albuterol 2.5 MG/3 ML nebule NEB ONE ×2 (13:42→15:01)
--- NOTE | 2025-06-13 13:46 | Physician Documentation ---
History of Present Illness General Chief Complaint: Asthma Stated Complaint: SOB Time Seen by MD: 13:28 Primary Medical Doctor: Luci History of Present Illness Initial Comments This is a 74-year-old female with a known history of COPD, ongoing smoking, comes in for evaluation of shortness a breath. Evidently began shortly prior to arrival, at the outside facility. She is staying at [facility] post[facility]acute. She received a DuoNeb, but was still with a oxygen saturation in low 80s. EMS provided non-rebreather and another DuoNeb EN route with a recovery of oxygen saturation. The shortness a breath according to the patient is similar to prior COPD exacerbation. Denies any chest pain. Denies any fever or chills. Denies any nausea, vomiting, diarrhea, abdominal pain. Medication Reconciliation Allergies: Coded Allergies: shrimp (Verified Allergy, Severe, THROAT SWELLING, 05/26/25) Scheduled Atorvastatin Calcium (Atorvastatin Calcium), 1 TAB PO DAILY, (Reported) Bupropion HCl (Bupropion Xl), 1 TAB PO DAILY, (Reported) Clopidogrel Bisulfate (Clopidogrel), 1 TAB PO DAILY, (Reported) Duloxetine HCl (Duloxetine HCl), 2 CAP PO HS, (Reported) Duloxetine HCl (Duloxetine HCl), 1 CAP PO DAILY, (Reported) Ezetimibe (Ezetimibe), 1 TAB PO DAILY, (Reported) Lamotrigine (Lamotrigine), 100 MG PO BID, (Reported) Lisinopril (Lisinopril), 1 TAB PO DAILY, (Reported) Miscellaneous Medications Clonidine HCl (Clonidine HCl), (Reported) Past Medical History Past Medical History: High Cholesterol, Hypertension, *GI/HEPATOBILIARY*, Lung Cancer, Depression Past Surgical History: orthopedic surgeries Smoking: Cigarettes, Greater than 1 pack/day Alcohol Use: Sober Drug Use: none Lives In: Home Occupation: disabled, retired Review of Systems ROS 10 point review of systems was performed and unless noted above in HPI is negative for acute process/complaint. Physical Exam Physical Exam Vital Signs: Temperature: 98.0, Source: Oral, Heart Rate: 123, Respiratory Rate: 28, BP: 134/75, Pulse Oximetry: 95, Weight: 75.000 Oxygen Flow Rate: 2.0 Physical Exam GENERAL: Awake, alert, oriented, GCS 15, no apparent distress, non-toxic ap pearing, answers questions, follows commands appropriately. Examined immediately upon arrival in bed 9. Myself and full resuscitative team present. HEENT: Atraumatic, normocephalic, pupils equal, extraocular muscles intact, sclerae anicteric, mucus membranes moist, oropharynx is clear, no stridor. NECK: supple, full active range of motion, trachea midline, no thyromegaly, no lymphadenopathy, no JVD. CARDIOVASCULAR: Tachycardic and irregularly irregular rate/rhythm, no murmurs/gallops/rubs, Pulses are 2+ in all extremities and symmetric. Capillary refill less than 2 seconds. PULMONARY: Tachypneic and labored, noticeably decreased air movement , mild respiratory distress, speaking in short sentences, faint bilateral inspiratory expiratory wheezing, no ronchi, no rales, some accessory muscle use. GASTROINTESTINAL: Soft, non-tender, non-distended, normal active bowel sounds, no organomegaly, no pulsatile masses, no CVA tenderness. NEUROLOGIC: Lucid with normal mental status. Normal facial symmetry. Moves all extremities symmetrically and with purpose. No truncal ataxia. Speech is fluid without evidence of dysarthria or aphasia, no focal deficits appreciated. MUSCULOSKELETAL: There is full range of motion of all extremities. There is no joint pain or joint swelling or joint erythema. There is no muscle pain or tenderness or swelling. EXTREMITIES: warm, well-perfused, no cyanosis, no clubbing, no edema, no acute deformities. Skin: warm, dry, no rashes or lesions, no jaundice, no petechiae orpurpura. No ecchymosis. PSYCHIATRIC: Normal affect, normal insight, normal concentration. Focused exam: [] Progress Results/Orders Results/Orders Orders - CHATA DAVEY DO Chest,Single View (06/13/25 13:36) Monitor (06/13/25 13:36) Saline Lock (06/13/25 13:36) * Rt Notification Q1H (06/13/25 13:37) Covid19 Binax Poc Result Entry (06/13/25 13:45) Rsv Antigen Ages 0-5 & 60+ (06/13/25 13:45) Influenza Type A&B Rapid Test (06/13/25 13:45) Cta Chest Pe (06/13/25 14:56) Completed Orders - CHATA DAVEY DO Electrocardiogram (06/13/25 13:36) Cbc/Diff (06/13/25 13:36) ESR (06/13/25 13:36) D-Dimer (06/13/25 13:36) C-Reactive Protein (06/13/25 13:36) Chest,Single View (06/13/25 13:36) PBNP (06/13/25 13:36) MG (06/13/25 13:36) Azithromycin/Ns 500mg/250ml (Zithromax/N (06/13/25 13:40) Normal Saline 1000ml (0.9% Sodium Chlori (06/13/25 13:40) CMP (06/13/25 13:36) Hs Troponin I W Calculations (06/13/25 13:36) Hs Troponin I W Calculations (06/13/25 15:36) Methylprednisolone Sod Succ (Solumedrol (06/13/25 13:40) Albuterol 2.5mg/3ml Nebule (Proventil 2. (06/13/25 13:40) Magnesium Sulf-Water 2g/50ml (Magnesium (06/13/25 13:40) Cta Chest Pe (06/13/25 14:56) Albuterol 2.5mg/3ml Nebule (Proventil 2. (06/13/25 15:00) Iohexol 350mg/Ml 100ml (Omnipaque 350mg/ (06/13/25 15:27) Medications Received in ER Medications (Trade) Dose Ordered Sig/Lino Route PRN Reason Start Time Stop Time Status Last Admin Dose Admin Azithromycin 250 ml @ 250 mls/hr ONCE ONCE IV 06/13/25 13:40 06/13/25 14:39 DC 06/13/25 14:33 250 MLS/HR (0.9% sodium chloride (NS) 1000ml IV soln) 500 ml ONCE ONCE IVB 06/13/25 13:40 06/13/25 13:41 DC 06/13/25 14:33 500 ML (SoluMEDROL 125mg inj) 125 mg ONCE ONCE IV 06/13/25 13:40 06/13/25 13:41 DC 06/13/25 14:33 125 MG (Proventil 2.5 MG/3ML nebule) 10 mg ONCE ONCE NEB 06/13/25 13:40 06/13/25 13:41 DC 06/13/25 13:42 10 MG Magnesium Sulfate 50 ml @ 100 mls/hr ONCE ONCE IV 06/13/25 13:40 06/13/25 14:09 DC 06/13/25 14:32 100 MLS/HR (Proventil 2.5 MG/3ML nebule) 2.5 mg ONCE ONCE NEB 06/13/25 15:00 06/13/25 15:01 DC 06/13/25 15:01 2.5 MG Vital Signs 06/13/25 06/13/25 06/13/25 06/13/25 13:30 13:38 13:40 13:49 Temp 98.0 Pulse 123 119 Resp 28 28 24 B/P (MAP) 134/75 Pulse Ox 96 95 94 O2 Delivery Nasal Cannula* O2 Flow Rate 2.0 2 FiO2 28 06/13/25 06/13/25 06/13/25 06/13/25 14:05 14:30 14:46 15:00 Temp 98.9 Pulse 125 123 115 125 Resp 24 20 19 B/P (MAP) 131/64 (86) 103/52 (69) 149/71 (97) Pulse Ox 94 95 99 97 O2 Flow Rate 3.0 3.0 3.0 06/13/25 06/13/25 06/13/25 06/13/25 15:01 15:06 15:30 16:00 Pulse 120 120 126 120 Resp 19 20 30 21 B/P (MAP) 133/62 (85) 111/47 (68) Pulse Ox 98 99 98 94 O2 Delivery Nasal Cannula* Nasal Cannula* O2 Flow Rate 4 4 3.0 3.0 FiO2 36 36 06/13/25 16:27 Pulse 121 Resp 28 B/P (MAP) 115/51 (72) Pulse Ox 94 O2 Flow Rate 3.0 Laboratory Tests Test 06/13/25 13:47 06/13/25 15:15 06/13/25 15:31 White Blood Count 7.1 Red Blood Count 3.37 L Hemoglobin 10.6 L Hematocrit 31.5 L Mean Corpuscular Volume 93.5 Mean Corpuscular Hemoglobin 31.5 H Mean Corpuscular Hemoglobin Concent 33.7 Red Cell Distribution Width 13.8 Platelet Count 341 Mean Platelet Volume 7.2 L Neutrophils (%) (Auto) 59.0 Lymphocytes (%) (Auto) 22.6 Monocytes (%) (Auto) 8.4 Eosinophils (%) (Auto) 8.9 H Basophils (%) (Auto) 1.1 H Neutrophils # (Auto) 4.2 Lymphocytes # (Auto) 1.6 Monocytes # (Auto) 0.6 Eosinophils # (Auto) 0.6 Basophils # (Auto) 0.1 CBC Comment Erythrocyte Sedimentation Rate 86 H D-Dimer 1.40 H D-Dimer Comment Sodium Level 131 L Potassium Level 4.9 Chloride Level 99 Carbon Dioxide Level 23.9 L Anion Gap 8 Blood Urea Nitrogen 20 H Creatinine 1.36 H Estimated GFR/1.73 m2 38 BUN/Creatinine Ratio 14.7 Glucose Level 86 Calcium Level 9.4 Magnesium Level 2.0 Total Bilirubin 0.4 Aspartate Amino Transf (AST/SGOT) 28 Alanine Aminotransferase (ALT/SGPT) 20 Alkaline Phosphatase 97 Troponin I High Sensitivity 11 11 C-Reactive Protein 0.31 Pro-B-Type Natriuretic Peptide 218 Total Protein 7.1 Albumin 3.2 L Globulin 3.9 Albumin/Globulin Ratio 0.8 L Chemistry Comments SARS-CoV-2 Antigen (Rapid) Negative Troponin I High Sens Percent Delta 0 Troponin I Hi Sens Absolute Change 0 EKG/XRAY/CT/US/VASC/MRI EKG : Additional Comment EKG was obtained and interpreted by myself. It shows a narrow complex irregular tachycardia concerning for AFib. Borderline QTC of 486, normal axis, no STEMI. Medical Decision Making Additional information obtaine: old records, other (EMS) Findings Facility Status: ED Holds, E process The plan was discussed with the patient, who demonstrates clear understanding of the plan and is in agreement with the plan unless otherwise noted in the chart. All questions have been answered, all concerns were addressed unless otherwise documented. I was available throughout their ED stay for frequent reassessment and qu estions. Differential Diagnoses (considered and possible or likely): [COPD exacerbation, CHF exacerbation, pneumonia, occult bacteremia, COVID, influenza, RSV, upper respiratory infection with the top of the viruses, less likely ACS, less likely PE.] ??Differential Diagnoses (considered and unlikely, not requiring evaluation currently): [See above] MDM Data Please see HPI for the following: Independent Historians and external Records Review. Historian: [Patient] Independent Historians: ?[EMS, record review] Medication Management: [Reviewed medication list] Social History and determinants: [Reviewed] Please see the body of the note for the following: Any independent interpretations of ECG, imaging studies. All vitals signs/haemodynamics, ordered tests were independently reviewed and interpreted by myself. Nursing triage complaint and vitals reviewed, additional nursing notes were revi ewed as available and I agree unless otherwise noted or documented in contradiction in the chart Vital Signs: Independently reviewed Labs: Independently interpreted Imaging: Independently interpreted Old Medical Records: Independently reviewed, see HPI for relevant summary and information Pulse Oximetry: [95%] interpreted as [normal on room air] by me [Associate: [Tachycardic and irregularly irregular. Atrial fibrillation with a rapid ventricular response.] reviewed and interpreted by me] Additionally notably showing: [Hemodynamics reviewed. The patient continues to require supplemental oxygen. She has a persistently tachycardic. No evidence of hypotension. Respiratory distress improved. Laboratory studies showed no leukocytosis, mild anemia of 10.6, normal platelets of 341. Only 59% neutrophilic predominance. Metabolic panel shows a BALAJI versus CKD. BNP is only slightly elevated. Two troponins are negative. Clean D-dimer is elevated 1.4. COVID is negative. Initially did not consider CTA, however obtained it after positive D-dimer. The CTA shows finding of 14 mm right lower lobe nodule. This is concerning for m alignancy, she will require follow-up.] Tests considered but not ordered include: [Echocardiogram can be done on an inpatient basis] Social Determinants of Health Impact: Patient was evaluated in [facility] [place] to healthcare due to below par ratio of patient to medical providers. [] Comorbid Conditions Impacting Present Evaluation and Care/Treatment: [COPD, new diagnosis of mass] Management Discussions with other Healthcare Providers: [Hospitalist regarding admission] Treatment and Disposition Medication Management (Given or considered): []. See EMR for details Consideration for Hospitalization/Escalation/Deescalation of Care: Admission for observation has been considered, and appears to be necessary for further management of her COPD exacerbation that hypoxia. ?ED Course:?[Insignificant clinical improvement throughout her stay in the emergency department.] ?Shared decision making:?[] Code status:?FULL Please see the full Electronic Medical Record for full details of nursing documentation, medications list, other records of complete past medical history and conditions, vital signs, laboratory studies, and any radiologic study interpretations by radiologists. Portions of this note were completed using [employer] dictation software and as a result there may exist minor errors in spelling. I have reviewed elements of past family and social history and agree as included in note. Differential Diagnosis See the body of main note for differential diagnosis Departure Disposition: 09 ADMITTED INPATIENT Impression: Primary Impression: Acute hypoxic respiratory failure Additional Impression: COPD exacerbation Condition: Fair Referrals: NO PRIMARY CARE PROVIDER (PCP) Signature Scribe Signature: No scribe Attestation: Date: Jun 13, 2025 Time: 17:10 This note accurately reflects clinical decisions, work performed by myself, DO TAMICA Walls NICHOLAS M DO Jun 13, 2025 13:46
[2025-06-13 13:57] LABS: MEAN PLATELET VOLUME 7.2 FL (7.4-10.4); RED CELL DISTRIBUTION WIDTH 13.8 % (11.5-14.5)
--- NOTE | 2025-06-13 14:11 | RADIOLOGY REPORT ---
CHEST RADIOGRAPH Indication: Shortness a breath Technique: Single frontal view of the chest was obtained Comparison: DI CHEST,SINGLE VIEW on DOS: 05/26/25, CT CT CHEST on DOS: 11/25/23, DI UNI RIBS WITH PA CHEST on DOS: 11/25/23, DI CHEST,SINGLE VIEW on DOS: 03/22/23 FINDINGS: Lines and Tubes: None Lungs: No focal consolidation. Pleura: No effusion. No pneumothorax. Cardiomediastinal contours: Unremarkable Bones: No acute osseous abnormality. IMPRESSION: No acute cardiopulmonary disease.
[2025-06-13 14:22] LABS: CREATININE 1.36 MG/DL (0.40-0.90); PRO BRAIN NATRIURETIC PEPTIDE 218 PG/ML (0-450); TOTAL CARBON DIOXIDE 23.9 MMOL/L (24-32); eCRCL 27 ML/MIN; eGFR 38 ML/MIN
[2025-06-13] MEDS: magnesium sulf-water 2g/50mL 50 ML IV ONE (14:32)
[2025-06-13] MEDS: azithromycin/NS 500mg/250ml 250 ML IV ONE (14:33)
[2025-06-13] MEDS: normal saline 1000ML IV soln IVB ONE (14:33)
--- NOTE | 2025-06-13 16:27 | RADIOLOGY REPORT ---
INDICATION: sob, elev dimer TECHNIQUE: Serial axial images from the thoracic inlet to the domes of the diaphragm were obtained after administration of 100 mL of Omnipaque 300 intravenously using the CTA PE protocol. Coronal and sagittal images were reconstructed. Multiplanar 3-D Maximum Intensity Projection images (MIP) reconstructions were created by the technologist in the coronal and sagittal planes as part of the CT angiography protocol. Dose lowering techniques have been used including automated exposure control and adjustment of mA and/or kv according to patient size. Comparison: DI CHEST,SINGLE VIEW on DOS: 06/13/25, DI CHEST,SINGLE VIEW on DOS: 05/26/25, CT CT ABDOMEN PELVIS on DOS: 05/26/25, CT CT CERVICAL SPINE on DOS: 05/26/25, CT CT HEAD on DOS: 05/26/25 FINDINGS: Limited evaluation due to motion. Pulmonary vasculature: No central pulmonary embolic disease. More distal branches limited evaluation due to motion. Lungs: 14 mm nodule in the right lower lobe posteriorly (series 3, image 40). Area of spiculation without discernible nodule in the right upper lobe peripherally, likely due to scarring. Underlying emphysematous changes. Hilar, mediastinal and axillary lymph nodes: No enlarged lymph nodes Aorta: Normal in size. Heart: Coronary artery calcification. Pleura: No pleural effusion Osseous structures: Multilevel degenerative changes of the spine.Streak artifact from right glenohumeralarthroplasty hardwarelimiting evaluation of the adjacent structures. Visualized portion of the abdomen: Grossly unremarkable. DLP is 685.9 mGy-cm. CTDI vol is 44 mGy. IMPRESSION: 1. No central pulmonary embolic disease. 2. More distal branches limited evaluation due to motion. 3. 14 mm nodule in the right lower lobe posteriorly. Follow-up CT chest in 3 months, PET/CT or tissue sampling recommended.
[2025-06-13] MEDS ORDERED: magnesium hydroxide 30ml (MOM) UD suspension PO PRN (18:00)
[2025-06-13] MEDS ORDERED: magnesium sulf-water 2g/50mL 50 ML IV PRN (18:00)
[2025-06-13] MEDS ORDERED: potassium Cl 20 mEq SR tablet PO PRN ×2 (18:00)
[2025-06-13] MEDS ORDERED: potassium Cl 40MEQ/1/2NS 520ml 520 ML IV PRN (18:00)
[2025-06-13] MEDS ORDERED: ondansetron/PF 4mg/2ml inj IV PRN (18:00)
[2025-06-13] MEDS ORDERED: magnesium sulf-water 4G/100mL 100 ML IV PRN (18:00)
[2025-06-13] MEDS ORDERED: mag hydrox/Alum hydrox/simeth 30ml oral suspension PO PRN (18:00)
[2025-06-13] MEDS ORDERED: magnesium Cl slow-release 64mg tablet PO PRN (18:00)
--- NOTE | 2025-06-13 18:15 | HISTORY AND PHYSICAL-Residence ---
History & Physical Providers to CC Resident Creating Document: CODI ROBERTS, RES ~ History of Present Illness Primary Medical Doctor: Luci Reason for Admit\Complaint: COPD exacerbation History of Present Illness The patient is a 74-year-old female with past medical history of hypertension, COPD, substance use disorder, peripheral vascular disease, right lung cancer s/p radiation, was transferred to the ED from [facility] for acute shortness of breath. She was saturating in low 80s even with a breathing treatment. She has ongoing dry cough since last one month and sore throat associated with it. No runny nose. She denies fever, chest pains, palpitations, dizziness, abdominal pain, nausea, vomiting, diarrhea, constipation, burning micturition. She has history of sleep apnea but does not tolerate CPAP. Does not use supplemental oxygen at home. Has not been compliant with her inhalers. Allergies: Coded Allergies: shrimp (Verified Allergy, Severe, THROAT SWELLING, 05/26/25) Home Medications Home Medications Active Reported Clonidine HCl 0.1 Mg Tablet Ezetimibe 10 Mg Tablet 1 Tab PO DAILY Duloxetine HCl 60 Mg Capsule.dr 1 Cap PO DAILY Bupropion Xl (Bupropion HCl) 300 Mg Tab.er.24h 1 Tab PO DAILY Atorvastatin Calcium 80 Mg Tablet 1 Tab PO DAILY Lisinopril 30 Mg Tablet 1 Tab PO DAILY Clopidogrel (Clopidogrel Bisulfate) 75 Mg Tablet 1 Tab PO DAILY Duloxetine HCl 30 Mg Capsule.dr 2 Cap PO HS Lamotrigine 25 Mg Tablet 100 Mg PO BID Past Medical History Past Medical History Hypertension Right lung cancer s/p radiation Peripheral vascular disease Depression COPD Past Surgical History Surgical History Comment Bilateral knee replacements Right shoulder replacement surgery Total hysterectomy Tonsillectomy Bilateral cataract surgeries Cervical spine surgery - posterior cervical fixation Family History Family History: (CABG) Coronary artery bypass grafting FATHER (70 ) brother (55-58 years old) Past Social History Social History Comment Patient lives alone by herself at her house before admission into the rehab facility. Point of contact - sister. Ambulates using a walker. Substance use history: Quit alcohol four months ago. Used to drink 18 pack of beer per day. Smoked 10 cigarettes per day since she was 13. Has not had a cigarette since the last one and half week. Denies other illicit drug abuse. Smoking: Cigarettes, Greater than 1 pack/day Alcohol Use: Sober Drug Use: None Lives In: Home Occupation: disabled, retired ROS ROS Constitutional: No fever, dizziness, weakness. no change in appetite/weight HEENT: No blurring of the vision, reports sore throat, no epistaxis, tinnitus Cardiovascular: No chest pain/discomfort, palpitations, syncope. No pedal edema Respiratory: Reports sob, cough, no hemoptysis Gastrointestinal: No abdominal pain, nausea, vomiting. No diarrhea, constipation, melena. Genitourinary: No frquency, urgency, incontinence, nocturia. No dysuria, hematuria Musculoskeletal: No arthralgia, myalgia Endocrine: No fatigue, polydipsia, polyuria. No heat or cold intolerance Neurologic: No headache, vertigo. No weakness, numbness or tingling of extremities Psychiatric: No hallucinations/delusions, no anhedonia, no suicidal ideation Hematologic: No bleeding or bruises Exam Vitals: Vital Signs Date Time Temp Pulse Resp B/P (MAP) Pulse Ox O2 Delivery O2 Flow Rate FiO2 06/13/25 17:27 128 29 140/70 (93) 99 4.0 06/13/25 15:06 Nasal Cannula* 36 06/13/25 14:30 98.9 General: Elderly female, alert and oriented, in acute distress because of shortness of breaths Head: Normocephalic with an atraumatic Eyes: Pupils- 3mm, reacting to light, conjunctiva- anicteric Nose and throat: No polyps, septum- normal, no mucosal ulcers Neck: Supple, no lymphadenopathy, no carotid bruit Respiratory: Diminished breath sounds, significant wheezing bilaterally Cardiac: Tachycardia, S1-S2 heard, rhythm regular, no gallop/murmur appreciated Abdomen: non distended, no tenderness, no organomegaly, bowel sounds - heard Extremities: no clubbing, no pedal edema, no deformities, peripheral pulses - 2+ Skin: warm and dry, no rash, no purpura Neuro: No focal deficit, gross cranial nerve exam - normal Diagnostic Data Last Recorded Lab Results: 06/13/25 1347 06/13/25 1347 Diagnostic Data: Laboratory Tests Test 06/13/25 13:47 D-Dimer 1.40 MG/L FEU (0-0.50) H D-Dimer Comment Counseling Services Smoking & Tobacco Cessation: > 10 Minutes Advance Care Planning Advanced Care plannin - 30 Minutes (Advanced care planning discussed in length with the patient and she requested DNR) Additional Plan A 74-year-old female with past medical history of COPD, hypertension, PAD, right lung cancer, was transferred from a rehab facility for shortness of breath. She is being admitted into the hospital for further evaluation and management. Plan: Acute hypoxemic respiratory failure COPD exacerbation Patient is currently on 4 L of oxygen through nasal cannula. She received 125 mg of IV methylprednisolone and breathing treatment in the ER. X-ray chest shows no cardiopulmonary abnormality. Patient has elevated D-dimer 1.40. CTA chest did not show any evidence of pulmonary embolism. Started the patient on IV methylprednisolone 60 mg q.8h. Continue IV ceftriaxone 1 g daily and azithromycin 500 mg daily. Spirometry and flutter valve. Patient has tachycardia. Started her on Xopenex instead of DuoNebs. Continue Xopenex q.4h scheduled and q.2h PRN. Hypertension Continue home lisinopril 30 mg daily, clonidine 0.1 mg once daily. History of alcohol use disorder Continue oral thiamine 100 mg daily, multivitamin one tablet daily and folic acid 0.4 mg daily. Quit four months ago. Nicotine use disorder Nicotine patch 21 mg transdermal daily. Bipolar disorder Continue lamotrigine 100 mg twice daily. Depression Continue bupropion 300 mg once daily Chronic pain Continue duloxetine 60 mg at bedtime. Hyperlipidemia Continue ezetimibe 10 mg daily and atorvastatin 80 mg daily. Right lung cancer s/p radiation Patient follows up with Dr. Adams. He has been watching her pulmonary nodule. CT chest shows 14 mm nodule in the right lower lobe posteriorly. Peripheral artery disease s/p stents Patient likely takes Plavix for peripheral artery disease. Code Status: DNR DVT Prophylaxis: Heparin Analgesia/Sedation: [place] Lines/Tubes: PIV Nutrition: Heart healthy diet PT: Ordered Prognosis: Guarded Disposition: We will admit the patient into [facility]. Continue oxygen supplementation and breathing treatments. Codi Roberts MD Internal Medicine Resident PGY-2 PATIENT STATES HE WE DO NOT RESTART MY HOME MEDS WHICH I HAVE NOT HAD TODAY OR YESTERDAY I AM GOING TO GO CRAZY. PATIENT IS SEEN AND EXAMINED IN ER BED NINE AGREE WITH THE ABOVE CONTINUE CURRENT TREATMENT DR. SABILLON TO TAKE OVER CARE IN A.M. Date of Service: Jun 13, 2025 Billing Provider: ALEXANDRIA VARGAS MD Common Visit Codes: 93952-ALFLOBY INP/OBS CARE (HIGH) CODI ROBERTS, RES Jun 13, 2025 18:15 ALEXANDRIA VARGAS MD Jun 13, 2025 19:19
[2025-06-13] MEDS: CefTRIAXone/D5W-Rocephin 1gm 50 ML IV ONE (18:36)
[2025-06-13 18:39] LABS: INR 1.1 INR
[2025-06-13] MEDS ORDERED: MULT-1085 PO (18:48)
[2025-06-13] MEDS ORDERED: FOLI0.4T6 PO (18:48)
[2025-06-13] MEDS ORDERED: THIA100T77 PO (18:48)
[2025-06-13] MEDS ORDERED: CLON0.1T PO (18:50)
[2025-06-13] MEDS ORDERED: levalbuterol 0.63mg/3ml nebule IH SCH (19:00)
[2025-06-13] MEDS ORDERED: levalbuterol 0.63mg/3ml nebule IH PRN (19:00)
[2025-06-13 19:01] LABS: LEUKOCYTE ESTERASE ,URINE NEGATIVE (Neg); NITRITES, URINE NEGATIVE (Neg); OCCULT BLOOD,URINE MODERATE (Neg)
[2025-06-13] MEDS: metoprolol tartrate 1mg/ml inj IV ONE (19:05)
[2025-06-13 19:08] LABS: UA COLLECTION TYPE CLN CATCH MIDSTREAM
[2025-06-13 19:12] LABS: MUCUS STRANDS NONE SEEN /LPF (Neg); SQUAMOUS EPITHELIAL CELL,UR FEW /LPF (FEW)
[2025-06-13] MEDS: K and/or MAG REPLACEMENT MC SCH (20:00)
[2025-06-13] MEDS: levalbuterol 0.63mg/3ml nebule IH SCH (20:00)
[2025-06-13] MEDS: heparin, porcine 5000 units/ml vial SQ SCH (21:03)
[2025-06-13] MEDS: docusate sod 100mg capsule PO SCH (21:03)
[2025-06-13] MEDS: HYDROcodone/acetaminophen 10/325mg tab PO PRN (21:04)
[2025-06-13] MEDS: lactobacillus rhamnosus 10,000 MMU CELLS/CAPSULE PO SCH (21:04)
[2025-06-13 22:18] LABS: INFLUENZA TYPE A ANTIGEN RAPID NEGATIVE (Negative); INFLUENZA TYPE B ANTIGEN RAPID NEGATIVE (Negative)
[2025-06-13] MEDS: albuterol 2.5 MG/3 ML nebule NEB SCH (22:38)
[2025-06-14] VITALS (21 sets, daily range): BP systolic 122–158; BP diastolic 64–80; PULSE 95–111; RESP 13–29; TEMP 97–98; O2SAT 93–98
[2025-06-14] MEDS: guaiFENesin 200 MG/10 ML oral syrup UD cup PO PRN (01:50)
[2025-06-14] MEDS: ipratropium/albuterol 3ml nebule NEB PRN (03:37)
[2025-06-14 06:03] LABS: MEAN PLATELET VOLUME 7.4 FL (7.4-10.4); RED CELL DISTRIBUTION WIDTH 14.0 % (11.5-14.5)
[2025-06-14 06:19] LABS: CREATININE 1.20 MG/DL (0.40-0.90); TOTAL CARBON DIOXIDE 23.6 MMOL/L (24-32); eCRCL 31 ML/MIN; eGFR 44 ML/MIN
[2025-06-14] MEDS: multivitamins, therapeutics tablet PO SCH (08:26)
[2025-06-14] MEDS: BUPROPION HCL 150MG XL 24 HR 150 MG TAB PO SCH (08:26)
[2025-06-14] MEDS: duloxetine 30mg CAPSULE.DR PO SCH (08:27)
[2025-06-14] MEDS: CefTRIAXone/D5W-Rocephin 1gm 50 ML IV SCH (08:28)
[2025-06-14] MEDS: azithromycin/NS 500mg/250ml 250 ML IV SCH (08:28)
[2025-06-14] MEDS: nicotine 21mg patch - 24 hr TD SCH (08:29)
[2025-06-14] MEDS: polyvinyl alcohol eye drops 15ML BOTTLE EACHEYE PRN (16:28)
--- NOTE | 2025-06-14 17:38 | PROGRESS NOTE- Residence ---
Progress Note - Resident Providers to CC Resident Creating Document: CODI ROBERTS, RES ~ Antibiotic Timeout Antibiotic Ordered?: Yes Subjective The patient was seen and examined at bedside today. Her breathing has gotten much better today. Oxygen requirement has gone down to 2L. She is feeling better and has no new complaints. Objective Vital Signs Date Time Temp Pulse Resp B/P (MAP) Pulse Ox O2 Delivery O2 Flow Rate FiO2 06/14/25 15:34 101 20 Nasal Cannula 2.0 06/14/25 15:28 94 28 06/14/25 02:00 97.0 126/78 (94) Result Diagram: 06/14/25 0534 06/14/25 0534 Elderly female, alert and oriented, in no acute distress Head: Normocephalic with an atraumatic Eyes: Pupils- 3mm, reacting to light, conjunctiva- anicteric Nose and throat: No polyps, septum- normal, no mucosal ulcers Neck: Supple, no lymphadenopathy, no carotid bruit Respiratory: Diminished breath sounds, mild wheezing bilaterally Cardiac: Tachycardia, S1-S2 heard, rhythm regular, no gallop/murmur appreciated Abdomen: non distended, no tenderness, no organomegaly, bowel sounds - heard Extremities: no clubbing, no pedal edema, no deformities, peripheral pulses - 2+ Skin: warm and dry, no rash, no purpura Neuro: No focal deficit, gross cranial nerve exam - normal Coagulation Studies Laboratory Tests Test 06/13/25 13:47 06/13/25 18:11 D-Dimer 1.40 MG/L FEU (0-0.50) H D-Dimer Comment Prothrombin Time 10.8 SECONDS (9.0-12.0) INR International Normalized Ratio 1.1 INR Coagulation Comments Assessment Assessment A 74-year-old female with past medical history of COPD, hypertension, PAD, right lung cancer, was transferred from a rehab facility for shortness of breath. She is being admitted into the hospital for further evaluation and management. Plan Plan Acute hypoxemic respiratory failure, improving COPD exacerbation Patient is currently on 2 L of oxygen through nasal cannula. X-ray chest shows no cardiopulmonary abnormality. Patient has elevated D-dimer 1.40. CTA chest did not show any evidence of pulmonary embolism. Decreased IV methylprednisolone to 60 mg Q12H. Continue IV ceftriaxone 1 g daily and azithromycin 500 mg daily - day 2. Spirometry and flutter valve. Continue Duonebs q.4h scheduled and q.2h PRN. BALAJI likely secondary to vasomotor nephropathy Creatinine 1.20 today. Continue to monitor kidney function. Hypertension Continue home lisinopril 30 mg daily and clonidine 0.1 mg once daily. History of alcohol use disorder Continue oral thiamine 100 mg daily, multivitamin one tablet daily and folic acid 0.4 mg daily. Quit four months ago. Nicotine use disorder Nicotine patch 21 mg transdermal daily. Bipolar disorder Continue lamotrigine 100 mg twice daily. Depression Continue bupropion 300 mg once daily Chronic pain Continue duloxetine 60 mg at bedtime. Hyperlipidemia Continue ezetimibe 10 mg daily and atorvastatin 80 mg daily. Right lung cancer s/p radiation Patient follows up with Dr. Adams. He has been watching her pulmonary nodule. CT chest shows 14 mm nodule in the right lower lobe posteriorly. Peripheral artery disease s/p stents Patient likely takes Plavix for peripheral artery disease. Code Status: DNR DVT Prophylaxis: Heparin Analgesia/Sedation: [place] Lines/Tubes: PIV Nutrition: Heart healthy diet PT: Ordered Prognosis: Guarded Disposition: Continue care in [facility]. Likely discharge back to [facility] tomorrow. Codi Roberts MD Internal Medicine Resident PGY-2 The patient was seen, examined and discussed with the attending physician, Dr. Irby. Date of Service: Jun 14, 2025 Billing Provider: AGUILA IRBY MD,CODI URENA, RES Jun 14, 2025 17:38
[2025-06-14] MEDS: HYDROcodone/acetaminophen 5mg/325mg tablet PO PRN (20:19)
[2025-06-15] VITALS (11 sets, daily range): BP systolic 127–156; BP diastolic 48–86; PULSE 20–120; RESP 18–34; TEMP 97.2–97.6; O2SAT 93–97
[2025-06-15 06:24] LABS: MEAN PLATELET VOLUME 7.4 FL (7.4-10.4); RED CELL DISTRIBUTION WIDTH 14.0 % (11.5-14.5)
[2025-06-15 06:37] LABS: CREATININE 1.00 MG/DL (0.40-0.90); TOTAL CARBON DIOXIDE 27.3 MMOL/L (24-32); eCRCL 37 ML/MIN; eGFR 54 ML/MIN
--- NOTE | 2025-06-15 16:52 | DISCHARGE SUMMARY-Residence ---
Discharge Summary Providers to CC Resident Creating Document: ANNIE ROBERTS, RES ~ Discharge Summary Admission Diagnosis: COPD exacerbation Hospital Course DATE OF ADMISSION: 06/13/2025 DATE OF DISCHARGE: 06/15/2025 Discharge disposition: [facility] Imaging: X-ray chest 06/13/2025: No acute cardiopulmonary abnormality. CTA chest 06/13/2025: 1. No central pulmonary embolic disease. 2. More distal branches limited evaluation due to motion. 3. 14 mm nodule in the right lower lobe posteriorly. Follow-up CT chest in 3 months, PET/CT or tissue sampling recommended. Discharge Diagnosis\Comment: Acute hypoxemic respiratory failure, improving COPD exacerbation BALAJI likely secondary to vasomotor nephropathy Hypertension History of alcohol use disorder Nicotine use disorder Bipolar disorder Depression Chronic pain Hyperlipidemia Right lung cancer s/p radiation Peripheral artery disease s/p stents Operations\Procedures: None Consultants: None Complications: None Condition on DC: Stable Discharge Summary: The patient is a 74-year-old female with past medical history of hypertension, COPD, substance use disorder, peripheral vascular disease, right lung cancer s/p ablation, was transferred to the ED from rehab facility for acute shortness of breath. Patient also had dry cough since last one month associated with sore throat. On evaluation in the ED, the patient appeared to be in COPD exacerbation. She required 4 L of oxygen through nasal cannula. Her chest x- ray was normal. Her D-dimer was elevated 1.40. Pulmonary embolism was ruled out with CTA chest. She was started on IV steroids, IV antibiotics ceftriaxone and azithromycin and breathing treatments. The patient had sinus tachycardia which was later resolved. Continued her home medications. On the day of discharge, the patient was stable and had no new complaints. She was counseled about smoking cessation and the patient complied with the recommendations. She is being discharged back to her rehab facility. Advice at discharge: Follow up with PCP in one week. Continue the antibiotics and steroids as instructed. Continue incentive spirometry q.1h while awake. Maintain compliance with inhalers. Follow up with Dr. Adams for monitoring the pulmonary nodule. Bowel and bladder care. Aspiration and fall precautions. In the event of worsening of symptoms, call 911 or go to the ER immediately. Examination at discharge: Elderly female, alert and oriented, in no acute distress Head: Normocephalic with an atraumatic Eyes: Pupils- 3mm, reacting to light, conjunctiva- anicteric Nose and throat: No polyps, septum- normal, no mucosal ulcers Neck: Supple, no lymphadenopathy, no carotid bruit Respiratory: Diminished breath sounds, mild wheezing bilaterally Cardiac: S1-S2 heard, rhythm regular, no gallop/murmur appreciated Abdomen: non distended, no tenderness, no organomegaly, bowel sounds - heard Extremities: no clubbing, no pedal edema, no deformities, peripheral pulses - 2+ Skin: warm and dry, no rash, no purpura Neuro: No focal deficit, gross cranial nerve exam - normal Medications at discharge: Tab cefdinir 300 mg b.i.d. for four days Tab prednisone 40 mg once daily for three days, 30 mg once daily for three days, 20 mg once daily for three days, 10 mg once daily for three days, 5 mg once daily for three days, then stop Tab Culturelle 10M b.i.d. Tessalon Perles 100 mg q.8h PRN for cough Symbicort inhaler two puffs twice daily Albuterol inhaler two puffs PRN woozy or shortness of breath Continue home meds - clonidine 0.1 mg daily, lisinopril 30 mg daily, duloxetine 60 mg daily, bupropion 300 mg daily, multivitamin, folic acid 0.4 mg daily, thiamine 100 mg daily, atorvastatin 80 mg daily, Zetia 10 mg daily, Plavix 75 mg daily, lamotrigine 100 mg b.i.d., [place] 5 mg q.6 H p.r.n., [place] 10 q.6 H p.r.n. Vital Signs Date Time Temp Pulse Resp B/P (MAP) Pulse Ox O2 Delivery O2 Flow Rate FiO2 06/15/25 16:01 102 20 Nasal Cannula 1.0 06/15/25 15:54 93 24 06/15/25 11:00 97.2 145/77 (99) Laboratory Tests Test 06/13/25 18:11 06/13/25 18:23 06/13/25 21:17 06/13/25 21:54 Prothrombin Time 10.8 SECONDS INR International Normalized Ratio 1.1 INR Coagulation Comments Urine Specimen Description Cln catch midstream Urine Color Yellow Urine Clarity Clear Urine pH 6.0 Urine Specific [place] 1.010 Urine Protein Negative mg/dl Urine Glucose (UA) Negative mg/dl Urine Ketones Negative mg/dl Urine Occult Blood Moderate Urine Nitrite Negative Urine Bilirubin Negative Urine Urobilinogen 0.2 E.U/dL Urine Leukocyte Esterase Negative Urine RBC 3-10 /HPF Urine WBC 0-4 /HPF Urine Squamous Epithelial Cells Few /LPF Urine Bacteria None seen /HPF Urine Mucus None seen /LPF Urine Culture Indicated Not ind Volume Urine Centrifuged 10 ml Urine Comment Respiratory Syncytial Virus Antigen Negative Influenza Type A Antigen Negative Influenza Type B Antigen Negative Test 06/14/25 05:34 06/14/25 08:56 06/15/25 05:57 White Blood Count 6.2 X10'3 6.8 X10'3 Red Blood Count 3.32 X10'6 3.23 X10'6 Hemoglobin 10.6 g/dl 10.3 g/dl Hematocrit 31.2 % 29.9 % Mean Corpuscular Volume 93.9 FL 92.4 FL Mean Corpuscular Hemoglobin 31.8 PG 31.8 PG Mean Corpuscular Hemoglobin Concent 33.9 g/dL 34.5 g/dL Red Cell Distribution Width 14.0 % 14.0 % Platelet Count 342 X10'3 308 X10'3 Mean Platelet Volume 7.4 FL 7.4 FL Neutrophils (%) (Auto) 84.3 % 80.2 % Lymphocytes (%) (Auto) 13.6 % 12.4 % Monocytes (%) (Auto) 2.0 % 7.1 % Eosinophils (%) (Auto) 0 % 0 % Basophils (%) (Auto) 0.1 % 0.3 % Neutrophils # (Auto) 5.2 X10'3 5.5 X10'3 Lymphocytes # (Auto) 0.8 X10'3 0.8 X10'3 Monocytes # (Auto) 0.1 X10'3 0.5 X10'3 Eosinophils # (Auto) 0.0 X10'3 0.0 X10'3 Basophils # (Auto) 0.0 X10'3 0.0 X10'3 CBC Comment Sodium Level 132 MMOL/L 135 MMOL/L Potassium Level 4.7 MMOL/L 4.7 MMOL/L Chloride Level 100 MMOL/L 102 MMOL/L Carbon Dioxide Level 23.6 MMOL/L 27.3 MMOL/L Anion Gap 8 6 Blood Urea Nitrogen 21 MG/DL 21 MG/DL Creatinine 1.20 MG/DL 1.00 MG/DL Estimated GFR/1.73 m2 44 ML/MIN 54 ML/MIN BUN/Creatinine Ratio 17.5 21.0 Glucose Level 138 MG/DL 111 MG/DL Osmolality 285 MOSM/K Calcium Level 9.4 MG/DL 9.0 MG/DL Magnesium Level 2.5 MG/DL 2.2 MG/DL Total Bilirubin 0.3 MG/DL 0.2 MG/DL Aspartate Amino Transf (AST/SGOT) 25 U/L 32 U/L Alanine Aminotransferase (ALT/SGPT) 19 U/L 17 U/L Alkaline Phosphatase 99 IU/L 81 IU/L Total Protein 7.3 G/DL 6.5 G/DL Albumin 3.3 G/DL 3.0 G/DL Globulin 4.0 G/DL 3.5 G/DL Albumin/Globulin Ratio 0.8 0.9 Chemistry Comments Lactic Acid Level 0.8 MMOL/L Procalcitonin < 0.05 NG/ML The patient was seen and evaluated with attending physician, Dr. Sabillon on the day of discharge. Time spent on discharge 35 minutes. *Problems/Diagnosis: (1) COPD exacerbation Status: Acute Total Time Spent on D/C: > 30 Minutes Counseling Services Smoking & Tobacco Cessation: > 10 Minutes Date of Service: Jun 15, 2025 Billing Provider: AGUILA SABILLON MD, SOWMYA MANJARI, RES Jun 15, 2025 16:51
== END 2025-06-15 19:00 | DRG 189 ==
LOC: ER 13:23 → ED HOLD 17:23 → PCU 3S 23:14
PROVIDERS: ADMIT Family Medicine; ATTEND Family Medicine
PROC: B32T1ZZ Computerized Tomography (CT Scan) of Left Pulmonary Artery using Low Osmolar Contrast (ICD-10-PCS; principal; 2025-06-13)
PROC: B3201ZZ Computerized Tomography (CT Scan) of Thoracic Aorta using Low Osmolar Contrast (ICD-10-PCS; 2025-06-13)
PROC: B32S1ZZ Computerized Tomography (CT Scan) of Right Pulmonary Artery using Low Osmolar Contrast (ICD-10-PCS; 2025-06-13)
DX: J96.01 Acute respiratory failure with hypoxia (principal); N17.0 Acute kidney failure with tubular necrosis; J44.1 Chronic obstructive pulmonary disease with (acute) exacerbation; I10 Essential (primary) hypertension; F31.9 Bipolar disorder, unspecified; I73.9 Peripheral vascular disease, unspecified; Z20.822 Contact with and (suspected) exposure to COVID-19; E78.00 Pure hypercholesterolemia, unspecified; Z85.118 Personal history of other malignant neoplasm of bronchus and lung; Z87.891 Personal history of nicotine dependence; Z79.01 Long term (current) use of anticoagulants; Z79.899 Other long term (current) drug therapy; Z91.013 Allergy to seafood; Z92.3 Personal history of irradiation
CPT/HCPCS: 36415; 71045; 71275; 80053; 81001; 83605; 83735; 83880; 83930; 84145; 84484; 85025; 85379; 85610; 85651; 86140; 87081; 87804; 87811; 93005; 94640; 94760; 96365; 96368; 96375; 99285; A6250; G0378; J0456; J0696; J1644; J2919; J7030; J7614; Q0163; Q9967

== ENCOUNTER 2025-06-19 08:17 | Inpatient (IN) | payer MEDICARE, OTHER, MEDICAID ==
[~2025-06-19] VITALS: Ht 162.6 cm; Wt 69.2 kg
[2025-06-19] VITALS (14 sets, daily range): BP systolic 84–148; BP diastolic 54–73; PULSE 86–118; RESP 16–27; TEMP 97–97.8; O2SAT 90–99
[~2025-06-19 08:17] MED LIST changes: -CLON0.1T; +CLON0.1T PO; +FOLI0.4T6 PO; +MULT-1085 PO; +THIA100T77 PO
[2025-06-19] MEDS: dexamethasone sod phosphate 10mg/ml inj IV STA (08:31)
[2025-06-19] MEDS: ipratropium/albuterol 3ml nebule NEB PRN (08:32)
[2025-06-19 08:38] LABS: MEAN PLATELET VOLUME 7.7 FL (7.4-10.4); RED CELL DISTRIBUTION WIDTH 14.1 % (11.5-14.5)
--- NOTE | 2025-06-19 08:42 | Physician Documentation ---
History of Present Illness ~ Chief Complaint: Respiratory Distress Stated Complaint: SOB Time Seen by MD: 08:35 Primary Medical Doctor: Luci Mode of Arrival: EMS, Stretcher HPI 74-year-old female History of COPD, hypertension, alcohol use disorder, nicotine use, bipolar disorder, hyperlipidemia, lung cancer status post radiation, PID presenting for shortness of breath and nonproductive cough. She reports increasing shortness of breath over the last few days while at rehab She was admitted on June 13 and discharged on June 15 for identical presentation. At that time she had CTA of her chest which showed no acute abnormalities. She was treated with ceftriaxone and azithromycin and discharged on prednisone and cefdinir Medication Reconciliation Allergies: Coded Allergies: shrimp (Verified Allergy, Severe, THROAT SWELLING, 06/19/25) Scheduled Atorvastatin Calcium (Atorvastatin Calcium), 1 TAB PO DAILY, (Reported) Bupropion HCl (Bupropion Xl), 1 TAB PO DAILY, (Reported) Clonidine HCl (Clonidine HCl), 1 TAB PO DAILY Clopidogrel Bisulfate (Clopidogrel), 1 TAB PO DAILY, (Reported) Duloxetine HCl (Duloxetine HCl), 2 CAP PO HS, (Reported) Duloxetine HCl (Duloxetine HCl), 1 CAP PO DAILY, (Reported) Ezetimibe (Ezetimibe), 1 TAB PO DAILY, (Reported) Folic Acid* (Folic Acid*), 1 TAB PO DAILY Lamotrigine (Lamotrigine), 100 MG PO BID, (Reported) Lisinopril (Lisinopril), 1 TAB PO DAILY, (Reported) Multivitamin (Multi Vitamin Daily), 1 TAB PO DAILY Thiamine HCl (B-1), 1 TAB PO DAILY Past Medical History Past Medical History: High Cholesterol, Hypertension, *GI/HEPATOBILIARY*, Lung Cancer, Depression Past Surgical History: orthopedic surgeries Patient History: (CABG) Coronary artery bypass grafting FATHER (70 ) brother (55-58 years old) Alcohol Use: Sober Drug Use: none Lives In: Home Occupation: disabled, retired Review of Systems Constitutional: Denies: fever Respiratory: Reports: cough, shortness of breath Cardiovascular: Denies: chest pain Gastrointestinal: Denies: abdominal pain Physical Exam Vital Signs: Temperature: 98.8, Source: Temporal, Heart Rate: 118, Respiratory Rate: 26, BP: 158/92, Pulse Oximetry: 97, Weight: 68.600 Oxygen Flow Rate: 15.0 General Appearance Toxic appearing, severe respiratory distress arrives on CPAP No JVD Lungs minimal flow bilaterally, impending respiratory arrest Cardiac no murmur Abdomen is soft nontender Neuro awake alert oriented following commands moving all extremities Skin warm well-perfused Lower extremities no edema Progress Results/Orders Results/Orders Orders - CHATA DUENAS MD Nitroglycerin Sublingual Tab (Nitrostat (06/19/25 08:25) Ipratropium/Albuterol Nebule (Ipratrop/A (06/19/25 08:25) Culture Blood (06/19/25 08:25) Saline Lock (06/19/25 08:25) Oxygen (06/19/25 08:25) Chest,Single View (06/19/25 08:25) Abg (Arterial Blood Gas) (06/19/25 ) Bipap/Cpap (06/19/25 ) Page Hospitalist (06/19/25 09:05) Fill Out Med Reconciliation (06/19/25 09:05) Completed Orders - CHATA DUENAS MD Dexamethasone Inj (Decadron 10mg/Ml Inj) (06/19/25 08:25) Cbc/Diff (06/19/25 08:25) BMP (06/19/25 08:25) PBNP (06/19/25 08:25) Lacticsepsis (06/19/25 08:25) Hs Troponin I W Calculations (06/19/25 08:29) Chest,Single View (06/19/25 08:25) TSH (06/19/25 08:30) Medications Received in ER Medications (Trade) Dose Ordered Sig/Lnio Route PRN Reason Start Time Stop Time Status Last Admin Dose Admin (Nitrostat SL tablet) 0.4 mg Q5MIN PRN SL chest pain 06/19/25 08:25 06/19/25 08:28 0.4 MG (Decadron 10mg/ ml inj) 10 mg ONCE STAT IV 06/19/25 08:25 06/19/25 08:27 DC 06/19/25 08:31 10 MG (ipratrop/ albuterol 0.5-3(2.5) MG/3ml nebule) 9 ml Q4H PRN NEB SOB or wheezing 06/19/25 08:25 06/19/25 08:32 9 ML Vital Signs 06/19/25 06/19/25 06/19/25 06/19/25 08:18 08:24 08:24 08:31 Temp 98.8 Pulse 125 123 Resp 34 30 B/P (MAP) 192/110 158/92 (114) Pulse Ox 82 82 94 O2 Delivery BiPAP+ O2 Flow Rate 15.0 FiO2 100 100 06/19/25 06/19/25 06/19/25 06/19/25 08:34 08:42 08:58 09:10 Pulse 118 115 118 Resp 26 24 27 24 Pulse Ox 97 99 O2 Delivery BiPAP+ Bi-pap FiO2 100 100 100 50 Laboratory Tests Test 06/19/25 08:30 06/19/25 08:59 06/19/25 09:30 White Blood Count 12.6 H Red Blood Count 3.84 L Hemoglobin 11.9 L Hematocrit 35.6 Mean Corpuscular Volume 92.8 Mean Corpuscular Hemoglobin 31.0 Mean Corpuscular Hemoglobin Concent 33.4 Red Cell Distribution Width 14.1 Platelet Count 336 Mean Platelet Volume 7.7 Neutrophils (%) (Auto) 63.6 Lymphocytes (%) (Auto) 24.0 Monocytes (%) (Auto) 8.5 Eosinophils (%) (Auto) 3.4 Basophils (%) (Auto) 0.5 Neutrophils # (Auto) 8.0 H Lymphocytes # (Auto) 3.0 Monocytes # (Auto) 1.1 H Eosinophils # (Auto) 0.4 Basophils # (Auto) 0.1 CBC Comment Sodium Level 134 L Potassium Level 4.3 Chloride Level 99 Carbon Dioxide Level 27.6 Anion Gap 7 L Blood Urea Nitrogen 14 Creatinine 0.96 H Estimated GFR/1.73 m2 57 BUN/Creatinine Ratio 14.6 Glucose Level 100 Lactic Acid Level 1.8 Calcium Level 9.2 Troponin I High Sensitivity 40 Pro-B-Type Natriuretic Peptide 525 H Albumin 3.5 Thyroid Stimulating Hormone (TSH) 3.55 Chemistry Comments Blood Gas Specimen Type Arterial Blood Gas Puncture Site Lr O2 Saturation 99.6 H Arterial Blood pH (Temp corrected) 7.404 Arterial Blood pCO2 (Temp correct) 42.8 Arterial Blood pO2 (Temp corrected) 201.4 H Arterial Blood PO2/FiO2 Ratio 2.01 Arterial Blood HCO3 26.2 Arterial Blood Base Excess 1.2 Arterial Blood Oxyhemoglobin 98.3 H Arterial Blood Carboxyhemoglobin 1.0 Arterial Blood Methemoglobin 0.3 Arterial Blood Deoxyhemoglobin 0.4 Bjorn Test Positive Blood Gas Hemoglobin 11.6 L Blood Gas Temperature 37.0 Blood Gas Set Respiration Rate 12 Blood Gas Modality Mask - bipap FiO2 100.0 Procalcitonin < 0.05 Microbiology Date/Time Source Procedure Growth Status 06/19/25 08:30 Blood Iv Start Blood Culture - Preliminary NEGATIVE (LESS THAN 24 HOURS) Resulted EKG/XRAY/CT/US/VASC/MRI Ultrasound : Impression Bedside point of care thoracic ultrasound showing no pneumothorax no B lines no effusion Heart Score: Heart Score Response (Comments) Value History Slightly Suspicious 0 EKG Normal 0 Age >65 2 Risk Factors 1 or 2 risk factors 1 Total 3 Medical Decision Making Additional information obtaine: old records Findings 74-year-old female history of COPD presents for shortness of breath. She is afebrile arrives in severe distress minimal airflow. She required rescue BiPAP which allowed her to improve rapidly. She has been in the hospitalist for COPD exacerbation Heart Score: 0 Differential Dx:Considerations: Include: anxiety, asthma, bronchitis, cardiogenic shock, CHF, COPD Departure Disposition: ADMITTED INPATIENT Admitted to Inpatient Unit: to hospitalist Impression: Primary Impression: Acute hypoxic respiratory failure Referrals: NO PRIMARY CARE PROVIDER (PCP) Critical Care Note Total Time (mins): 30 Critical Care Note The very real possibility of a deterioration of this patient's condition required the highest level of my preparedness for sudden, emergent intervention. I provided critical care services, which included medication orders, frequent reevaluations of the patient's condition and response to treatment, ordering and reviewing test results, and discussing the case with various consultants. Excludes time spent performing separately billable procedures. The critical care time associated with the care of the patient was 30 minutes in the acute management of hypoxic respiratory failure requiring rescue BiPAP Signature Scribe Signature: na Attestation: CHATA Vivas MD Jun 19, 2025 08:42
[2025-06-19 09:00] LABS: CREATININE 0.96 MG/DL (0.40-0.90); PRO BRAIN NATRIURETIC PEPTIDE 525 PG/ML (0-450); TOTAL CARBON DIOXIDE 27.6 MMOL/L (24-32); eCRCL 44 ML/MIN; eGFR 57 ML/MIN
[2025-06-19 09:02] LABS: ABG BASE EXCESS 1.2 mmol/L (-2.0-3.0); ABG HCO3 26.2 mmol/L (21.0-28.0); ABG OXYGEN SATURATION 99.6 % (94.0-98.0); ABG PCO2 (T) 42.8 mmHg (32.0-45.0); ABG PH (T) 7.404 (7.350-7.450); ABG PO2 (T) 201.4 mmHg (83.0-108.0); ALLEN'S TEST POSITIVE; FCOHb 1.0 % (0.5-1.5); FHHb 0.4 % (0.0-5.0); FIO2 100.0 mmHg/%; FMetHb 0.3 % (0.0-1.5); FO2Hb 98.3 % (94.0-98.0); MODE MASK - BIPAP; PATIENT TEMPERATURE 37.0; RESPIRATORY RATE 12 b/min; TOTAL HEMOGLOBIN 11.6 G/dl (12.0-16.0)
--- NOTE | 2025-06-19 09:05 | RADIOLOGY REPORT ---
EXAM: DI CHEST,SINGLE VIEW Indication: SOB Technique: Single frontal view of the chest was obtained Comparison: DI CHEST,SINGLE VIEW on DOS: 06/13/25, DI CHEST,SINGLE VIEW on DOS: 05/26/25, CT CT CHEST on DOS: 11/25/23, DI CHEST,SINGLE VIEW on DOS: 03/22/23, CHEST,SINGLE VIEW on DOS: 11/17/22 FINDINGS: Lines and Tubes: None Lungs: No focal consolidation. Pleura: No effusion. No pneumothorax. Cardiomediastinal contours: Unremarkable. Atherosclerotic vascular calcifications of the thoracic aorta are noted. Bones: No acute osseous abnormality. IMPRESSION: No acute cardiopulmonary disease.
[2025-06-19] MEDS ORDERED: potassium Cl 20 mEq SR tablet PO PRN ×2 (12:05)
[2025-06-19] MEDS ORDERED: magnesium Cl slow-release 64mg tablet PO PRN (12:05)
[2025-06-19] MEDS ORDERED: potassium Cl 40MEQ/1/2NS 520ml 520 ML IV PRN (12:05)
[2025-06-19] MEDS ORDERED: magnesium sulf-water 4G/100mL 100 ML IV PRN (12:05)
[2025-06-19] MEDS ORDERED: mag hydrox/Alum hydrox/simeth 30ml oral suspension PO PRN (12:05)
[2025-06-19] MEDS ORDERED: magnesium sulf-water 2g/50mL 50 ML IV PRN (12:05)
--- NOTE | 2025-06-19 12:30 | ELECTROCARDIOGRAPH REPORT ---
[facility] Test Date: 2025-06-19 Test Time: 08:28:43 Pat Name: LUCÍA MCCRAY Department: EMERGENCY ROOM Room: [place] [address] Gender: F Guest Services Associate: LARISA : 1950 Requested By: JES MORGAN Order Number: [id number] Reading MD: Dr. CATHERINE Gutierrez Measurements Intervals [place] Rate: 118 P: 75 CO: 164 QRS: 28 QRSD: 82 T: 63 QT: 285 QTc: 400 Interpretive Statements Sinus tachycardia Baseline wander in lead(s) V2 Electronically Signed On 06-24-2025 15:13:[address] CATHERINE Gutierrez Please click the below link to view image of tracing.
[2025-06-19 12:45] LABS: LEUKOCYTE ESTERASE ,URINE NEGATIVE (Neg); NITRITES, URINE NEGATIVE (Neg); OCCULT BLOOD,URINE NEGATIVE (Neg)
[2025-06-19 12:51] LABS: UA COLLECTION TYPE CLN CATCH MIDSTREAM
[2025-06-19 12:52] LABS: SQUAMOUS EPITHELIAL CELL,UR NONE SEEN /LPF (FEW)
[2025-06-19] MEDS ORDERED: albuterol 2.5 MG/3 ML nebule NEB PRN (13:45)
--- NOTE | 2025-06-19 14:29 | HISTORY AND PHYSICAL-Residence ---
History & Physical Providers to CC Resident Creating Document: HASMUKH MURNOE, RACHNA ~ History of Present Illness Primary Medical Doctor: Luci Reason for Admit\Complaint: Shortness of Breath History of Present Illness This is a 74-year-old female with past medical history of COPD, peripheral artery disease s/p stent, hypertension, lung cancer s/p radiation, presented in ER from [facility] with chief complain of shortness of breath. She states that she is feeling short of breath since yesterday, shortness of breath which is worse on exertion, she also reports shortness of breath while sleeping due to which she sleep in rolled position. In addition to that she also also has a cough for the past couple of weeks which is dry, denies chest pain, nausea, vomitting and abdominal pain. She also feel constipated last bowel movement was one week ago She does not use oxygen at home, she reports she was using breathing treatments couple of months ago and stopped taking it. Patient was in BIPAP and short of breath, it was very difficult to take complete detailed history. Apart from that she also reported she had peripheral artery disease s/p stent four years ago and takes Plavix for that. Allergies: Coded Allergies: shrimp (Verified Allergy, Severe, THROAT SWELLING, 06/19/25) Home Medications Home Medications Active Clonidine HCl 0.1 Mg Tablet 1 Tab PO DAILY 30 Days Multi Vitamin Daily (Multivitamin) 1 Each Tablet 1 Tab PO DAILY 30 Days Folic Acid* (Folic Acid) 0.4 Mg Tablet 1 Tab PO DAILY 30 Days B-1 (Thiamine HCl) 100 Mg Tablet 1 Tab PO DAILY 30 Days Reported Ezetimibe 10 Mg Tablet 1 Tab PO DAILY Duloxetine HCl 60 Mg Capsule.dr 1 Cap PO DAILY Bupropion Xl (Bupropion HCl) 300 Mg Tab.er.24h 1 Tab PO DAILY Atorvastatin Calcium 80 Mg Tablet 1 Tab PO DAILY Lisinopril 30 Mg Tablet 1 Tab PO DAILY Clopidogrel (Clopidogrel Bisulfate) 75 Mg Tablet 1 Tab PO DAILY Duloxetine HCl 30 Mg Capsule.dr 2 Cap PO HS Lamotrigine 25 Mg Tablet 100 Mg PO BID Past Medical History Past Medical History Hypertension Right lung cancer s/p radiation Peripheral vascular disease Depression COPD As per medical records. Past Surgical History Surgical History Comment Bilateral knee replacements Right shoulder replacement surgery Total hysterectomy Tonsillectomy Bilateral cataract surgeries Cervical spine surgery - posterior cervical fixation As per medical records. Family History Family History: (CABG) Coronary artery bypass grafting FATHER (70 ) brother (55-58 years old) Past Social History Social History Comment Patient have been smoking since the age of 13, smoked pack a day quit smoking four weeks ago. She has been running alcohol since 30 years about three beers a day and last drink was three weeks ago She also used meth and marijuana for 20 years, quit four years ago She walks with a walker. Smoking: Cigarettes, Greater than 1 pack/day Occupation: retired ROS ROS All reviewed and negative except for pertinent positive findings mentioned in HPI. Constitutional: Denies: fever Exam Vitals: Vital Signs Date Time Temp Pulse Resp B/P (MAP) Pulse Ox O2 Delivery O2 Flow Rate FiO2 06/19/25 13:08 96 18 106/61 (76) 96 06/19/25 09:10 50 06/19/25 08:58 Bi-pap 06/19/25 08:18 98.8 15.0 General: General: awake, alert oriented to place, time, and person HEENT: No pallor present, no icterus, moist mucous membranes Neck: No masses and tenderness Resp: In respiratory distress, wheezing heard bilaterally, no crackles. Chest: Normal expansion. Cardiovascular: Regular Rate and rhythm, normal S1 and S2 without murmur, rub or gallop Abdomen: Soft and mildly tender in epigastrium, no organomegaly, no guarding and rigidity, bowel sounds present Neuro: No focal weakness in the upper and lower limb muscles, power of the muscles 5/5 bilateral upper and lower extremities, normal reflexes bilaterally. Cranial nerves intact Extremities: No cyanosis,clubbing or edema Skin: Warm and Dry. No lesions Psych: Normal affect Diagnostic Data Last Recorded Lab Results: 06/[id number] Diagnostic Data: Laboratory Tests Test 06/19/25 13:22 D-Dimer Comment Advance Care Planning Advanced Care plannin - 30 Minutes (I spent 17 minutes in discussing various resuscitative measures with the patient and she chose to be DNR) Additional Plan This 74-year-old female with past medical history of lung cancer s/p ablation COPD, hypertension presented in ER with chief complaint of shortness of breath admitting for COPD exacerbation. Acute Hypoxemic Respiratory Failure Secondary to COPD Exacerbation Sirs criteria (WBC> 76977 , HR> 90, RR> 20) Patient was on BiPAP currently maintaining oxygen saturation on 6 L of NC. On IV methylprednisolone 40 mg Leukocytosis, procal normal Albuterol Q2h prn and and DuoNeb q.4h Ceftriaxone 1 g and Zithromax. Received one dose of Decadron 10 mg IV in ER Incentive spirometry Follow up with COVID and influenza test. Elevated D-dimer D-dimer 0.99 Wells score 1.5, less likely PE CTA on 06/13/25: Shows no PE Peripheral artery disease s/p stent Patient reports she take Plavix Awaiting med rec on 05/26/25 LDL: 38, Cholestrol 91 Alcohol use disorder Patient last drink was three weeks ago Substance use navigator consulted Financial Assistant consulted Tobacco use disorder Patient last cigarette was four weeks ago Substance use navigator consulted Financial Assistant consulted Hypertension Awaiting med rec Hyperlipidemia on LDL: 38, Cholestrol 91 Awaiting med rec Lung Cancer S/P Radiation She reports her last radiation was three years ago. CT chest on 06/13/25 shows 14 mm nodule in the right lower lobe posteriorly. Code status: DNR DVT prophylaxis: lovenox GI prophylaxis: pantoprazole 40 mg IV Disposition: Will continue to monitor patient. Hasmukh Munroe PGY 1 IM. Date of Service: Jun 19, 2025 Billing Provider: JES MORGAN MD Common Visit Codes: [id number] INP/OBS CARE (HIGH) Secondary Visit Codes: [id number] CARE PLAN 30 MINUTES HASMUKH MUNROE, RES Jun 19, 2025 14:29 JES MORGAN MD Jun 21, 2025 06:31
[2025-06-19] MEDS: ipratropium/albuterol 3ml nebule NEB SCH (14:48)
[2025-06-19] MEDS: CefTRIAXone/D5W-Rocephin 1gm 50 ML IV SCH (16:05)
[2025-06-19 16:13] LABS: INFLUENZA TYPE A ANTIGEN RAPID NEGATIVE (Negative); INFLUENZA TYPE B ANTIGEN RAPID NEGATIVE (Negative)
[2025-06-19] MEDS: azithromycin/NS 500mg/250ml 250 ML IV SCH (16:16)
[2025-06-19] MEDS: HYDROcodone/acetaminophen 5mg/325mg tablet PO PRN (17:11)
[2025-06-19] MEDS: K and/or MAG REPLACEMENT MC SCH (20:00)
[2025-06-19] MEDS: enoxaparin 40mg/0.4ml syringe SUBCUT SCH (20:34)
[2025-06-19] MEDS ORDERED: LAMO100T65 PO (21:21)
[2025-06-19] MEDS ORDERED: CEFD300C3 PO (21:21)
[2025-06-19] MEDS ORDERED: ALB0.5UD NEB (21:21)
[2025-06-19] MEDS ORDERED: GUAI200T5 PO (21:21)
[2025-06-19] MEDS ORDERED: HYDR-3965 PO (21:21)
[2025-06-19] MEDS ORDERED: BUDE10.22 INH (21:21)
[2025-06-19] MEDS ORDERED: PRED10TA23 PO (21:22)
[2025-06-19] MEDS ORDERED: BENZ-268 PO (21:22)
[2025-06-19] MEDS ORDERED: NICO-687 TOP (21:22)
[2025-06-19] MEDS ORDERED: ALB0.5UD IH (21:22)
[2025-06-19] MEDS ORDERED: ACID1TAB2 PO (21:22)
[2025-06-20] VITALS (23 sets, daily range): BP systolic 137–180; BP diastolic 59–90; PULSE 88–116; RESP 16–28; TEMP 97–98; O2SAT 90–99
[2025-06-20 06:39] LABS: MEAN PLATELET VOLUME 7.8 FL (7.4-10.4); RED CELL DISTRIBUTION WIDTH 13.9 % (11.5-14.5)
[2025-06-20 06:58] LABS: INR 1.0 INR
[2025-06-20 07:07] LABS: CREATININE 0.98 MG/DL (0.40-0.90); PHOSPHORUS 3.4 MG/DL (2.3-4.5); TOTAL CARBON DIOXIDE 28.6 MMOL/L (24-32); eCRCL 43 ML/MIN; eGFR 55 ML/MIN
[2025-06-20] MEDS: methylPREDNISolone sod succ/PF 40mg inj. IV SCH (08:20)
[2025-06-20] MEDS ORDERED: albuterol 2.5 MG/3 ML nebule NEB SCH (09:00)
[2025-06-20] MEDS: budesonide 0.5mg/2ml UD nebule IH SCH (09:00)
[2025-06-20] MEDS: BUPROPION HCL 150MG XL 24 HR 150 MG TAB PO SCH (09:55)
--- NOTE | 2025-06-20 18:55 | PROGRESS NOTE- Residence ---
Progress Note - Resident Providers to CC Resident Creating Document: SWAPNIL MUNROE RES ~ Antibiotic Timeout Antibiotic Ordered?: Yes Subjective Patient was seen and examined at bedside she reports she is feeling better since admission,however she was short of breath and was coughing up with clear sputum. Today she changed her code status from DNR to full code Objective Vital Signs Date Time Temp Pulse Resp B/P (MAP) Pulse Ox O2 Delivery O2 Flow Rate FiO2 06/20/25 15:13 102 17 Nasal Cannula 2.0 06/20/25 15:08 95 28 06/20/25 15:00 97.6 137/60 (85) Result Diagram: 06/20/25 0610 06/20/25 0610 General: awake, alert oriented to place, time, and person HEENT: No pallor present, no icterus, moist mucous membranes Neck: No masses and tenderness Resp: In respiratory distress, wheezing heard bilaterally, no crackles. Chest: Normal expansion. Cardiovascular: Regular rhythm,HR elevated, normal S1 and S2 without murmur, rub or gallop Abdomen: Soft and non tender in epigastrium, no organomegaly, no guarding and rigidity, bowel sounds present Neuro: No focal weakness in the upper and lower limb muscles, power of the muscles 5/5 bilateral upper and lower extremities, normal reflexes bilaterally. Cranial nerves intact Extremities: No cyanosis,clubbing or edema Skin: Warm and Dry. Psych: Normal affect Coagulation Studies Laboratory Tests Test 06/19/25 13:22 06/20/25 06:30 D-Dimer 0.99 MG/L FEU (0-0.50) H D-Dimer Comment Prothrombin Time 10.6 SECONDS (9.0-12.0) INR International Normalized Ratio 1.0 INR Coagulation Comments Advance Care Planning Advanced Care plannin - 30 Minutes Plan Plan Acute Hypoxemic Respiratory Failure Secondary to COPD Exacerbation. Sirs criteria (WBC> 22534 , HR> 90, RR> 20) Patient is currently on BIPAP She was on 2 L of oxygen maintaing oxygen satt her shortness of breath got worse she is back on BiPAP. Coughing up with clear sputum in view of this start patient on Mucinex. Changed IV methylprednisolone 40 mg to 60 mg IV b.i.d Leukocytosis, procal normal Albuterol Q2h prn and and DuoNeb q.4h Ceftriaxone 1 g day 2 and Zithromax day 2 Received one dose of Decadron 10 mg IV in ER Incentive spirometry COVID and influenza negative, preliminary blood cultures are negative. Acute Heart Failure With Preserved Ejection Fraction Echo on 05/16/2025: Normal LV size and wall thickness. Overall systolic function is normal. Overall LVEF is 60%.Right ventricle is mildly dilated with adequate function. Estimated PA systolic pressure is 50 mmHg. On Lasix 40 mg IV b.i.d. Strict I&O ProBNP 525 Elevated D-dimer D-dimer 0.99 Wells score 1.5, less likely PE CTA on 06/13/25: Shows no PE Peripheral artery disease s/p stent Patient reports she take Plavix Continue Plavix 75 mg on 05/26/25 LDL: 38, Cholestrol 91 Alcohol use disorder Patient last drink was three weeks ago Substance use navigator consulted Scaffold Setter consulted Tobacco use disorder Patient last cigarette was four weeks ago Substance use navigator consulted Scaffold Setter consulted Hypertension On lisinopril 30 mg Hyperlipidemia on LDL: 38, Cholestrol 91 Atorvastatin 80 mg and ezetimibe 10 mg Lung Cancer S/P Radiation She reports her last radiation was three years ago. CT chest on 06/13/25 shows 14 mm nodule in the right lower lobe posteriorly. Code status: Full code DVT prophylaxis: lovenox GI prophylaxis: pantoprazole 40 mg IV Disposition: Will continue to monitor patient. Patient was weaned off BiPAP , however her shortness of breath got worse and she is on BiPAP. Date of Service: Jun 20, 2025 Billing Provider: JES MORGAN MD Common Visit Codes: [id number] INP/OBS CARE(HIGH) SWAPNIL MUNROE, RES Jun 20, 2025 18:55 JES MORGAN MD Jun 21, 2025 06:32
[2025-06-20] MEDS ORDERED: non-formulary drug (Budesonide/Formoterol Fumarate (Symbicort 80-4.5 Mcg Inhaler) 2 PUFFS) INH SCH (20:00)
[2025-06-20] MEDS: guaiFENesin ER 600mg tablet PO SCH (20:55)
[2025-06-21] VITALS (21 sets, daily range): BP systolic 134–161; BP diastolic 54–87; PULSE 84–117; RESP 17–31; TEMP 97–98.3; O2SAT 89–96
[2025-06-21] MEDS: magnesium hydroxide 30ml (MOM) UD suspension PO PRN (02:07)
[2025-06-21 05:37] LABS: MEAN PLATELET VOLUME 7.8 FL (7.4-10.4); RED CELL DISTRIBUTION WIDTH 14.2 % (11.5-14.5)
[2025-06-21 05:58] LABS: CREATININE 1.18 MG/DL (0.40-0.90); PHOSPHORUS 4.0 MG/DL (2.3-4.5); TOTAL CARBON DIOXIDE 34.5 MMOL/L (24-32); eCRCL 36 ML/MIN; eGFR 45 ML/MIN
[2025-06-21] MEDS: nicotine 14mg patch - 24hr TD SCH (08:16)
[2025-06-21] MEDS: HYDROcodone/acetaminophen 10/325mg tab PO PRN (08:18)
[2025-06-21] MEDS: methylPREDNISolone sod succ/PF 40mg inj. IV SCH ×2 (08:19→17:25)
[2025-06-21] MEDS: albuterol 2.5 MG/3 ML nebule NEB PRN (10:11)
[2025-06-21] MEDS: naphazoline/pheniramine eye 1 DROP BOTTLE EACHEYE PRN (18:11)
--- NOTE | 2025-06-21 19:14 | PROGRESS NOTE- Residence ---
Progress Note - Resident Providers to CC Resident Creating Document: SWAPNIL MUNROE RES ~ Antibiotic Timeout Antibiotic Ordered?: Yes Subjective Patient was seen and examined on bedside she reports she is feeling better she reports her breathing has improved since admission today she was also complaining of itching in eyes. Sometimes she is requiring BiPAP and sometimes only oxygen with NC. Objective Vital Signs Date Time Temp Pulse Resp B/P (MAP) Pulse Ox O2 Delivery O2 Flow Rate FiO2 06/21/25 15:43 99 20 Nasal Cannula 2.0 30 06/21/25 15:30 91 06/21/25 15:00 98.3 147/87 (107) Result Diagram: 06/21/25 0500 06/21/25 0500 General: awake, alert oriented to place, time, and person HEENT: No pallor present, no icterus, moist mucous membranes Neck: No masses and tenderness Resp: In respiratory distress, wheezing heard bilaterally which is improving, no crackles. Chest: Normal expansion. Cardiovascular: Regular rhythm,HR elevated, normal S1 and S2 without murmur, rub or gallop Abdomen: Soft and non tender in epigastrium, no organomegaly, no guarding and rigidity, bowel sounds present Neuro: No focal weakness in the upper and lower limb muscles, power of the muscles 5/5 bilateral upper and lower extremities, normal reflexes bilaterally. Cranial nerves intact Extremities: No cyanosis,clubbing or edema Skin: Warm and Dry. Psych: Normal affect Coagulation Studies Laboratory Tests Test 06/19/25 13:22 06/20/25 06:30 D-Dimer 0.99 MG/L FEU (0-0.50) H D-Dimer Comment Prothrombin Time 10.6 SECONDS (9.0-12.0) INR International Normalized Ratio 1.0 INR Coagulation Comments Advance Care Planning Advanced Care plannin - 30 Minutes Plan Plan Acute Hypoxemic Respiratory Failure Secondary to COPD Exacerbation. Sirs criteria (WBC> 25377 , HR> 90, RR> 20) Patient is currently on BIPAP She was on 2 L of oxygen maintaing oxygen satt her shortness of breath got worse she is back on BiPAP. Coughing up with clear sputum in view of this start patient on Mucinex. Changed IV methylprednisone 60 mg IV b.i.d. to 60 mg IV t.i.d. Leukocytosis, procal normal Albuterol Q2h prn and and DuoNeb q.4h Ceftriaxone 1 g day 3 and Zithromax day 3 Received one dose of Decadron 10 mg IV in ER Incentive spirometry COVID and influenza negative, preliminary blood cultures are negative. Using BiPAP intermittently. Acute Heart Failure With Preserved Ejection Fraction Echo on 05/16/2025: Normal LV size and wall thickness. Overall systolic function is normal. Overall LVEF is 60%.Right ventricle is mildly dilated with adequate function. Estimated PA systolic pressure is 50 mmHg. Decrease the dose of Lasix 40 mg IV b.i.d. to Lasix 40 mg IV daily in view of kidney function Strict I&O ProBNP 525 Elevated D-dimer D-dimer 0.99 Wells score 1.5, less likely PE CTA on 06/13/25: Shows no PE Allergic eyes Patient was reporting itchiness in her eyes and [place]ell feeling in eyes Started olopatadine eyedrops. Peripheral artery disease s/p stent Patient reports she take Plavix Continue Plavix 75 mg on 05/26/25 LDL: 38, Cholestrol 91 Alcohol use disorder Patient last drink was three weeks ago Substance use navigator consulted [facility] Consultant consulted Tobacco use disorder Patient last cigarette was four weeks ago Substance use navigator consulted [facility] Consultant consulted Hypertension On lisinopril 30 mg Hyperlipidemia on LDL: 38, Cholestrol 91 Atorvastatin 80 mg and ezetimibe 10 mg Lung Cancer S/P Radiation She reports her last radiation was three years ago. CT chest on 06/13/25 shows 14 mm nodule in the right lower lobe posteriorly. Code status: Full code DVT prophylaxis: lovenox GI prophylaxis: pantoprazole 40 mg IV Disposition: Will continue to monitor patient. Patient was weaned off BiPAP , however her shortness of breath got worse and she is on BiPAP. Date of Service: Jun 21, 2025 Billing Provider: JES MORGAN MD Common Visit Codes: [id number] INP/OBS CARE(HIGH) SWAPNIL MUNROE, RES Jun 21, 2025 19:14 JES MORGAN MD Jun 22, 2025 08:14
[2025-06-21] MEDS: ondansetron/PF 4mg/2ml inj IV PRN (20:41)
[2025-06-22] VITALS (19 sets, daily range): BP systolic 132–165; BP diastolic 51–99; PULSE 84–109; RESP 15–26; TEMP 97.1–98.1; O2SAT 84–97
[2025-06-22 07:01] LABS: MEAN PLATELET VOLUME 8.0 FL (7.4-10.4); RED CELL DISTRIBUTION WIDTH 14.1 % (11.5-14.5)
[2025-06-22 07:05] LABS: CREATININE 1.39 MG/DL (0.40-0.90); PHOSPHORUS 3.6 MG/DL (2.3-4.5); TOTAL CARBON DIOXIDE 35.8 MMOL/L (24-32); eCRCL 30 ML/MIN; eGFR 37 ML/MIN
[2025-06-22] MEDS: mineral oil 133ml enema RC PRN (10:07)
[2025-06-22] MEDS: metoclopramide 5 mg/ml inj IV PRN (11:10)
--- NOTE | 2025-06-22 11:21 | RADIOLOGY REPORT ---
Date: 06/22/2025 10:59 AM Examination: DI ABDOMEN,SINGLE VIEW(KUB) History: CONSTIPATION Comparison: CT CT ABDOMEN PELVIS on DOS: 05/26/25 TECHNIQUE: Frontal views of the abdomen was obtained. FINDINGS: Dilated loops of colon and small bowel are visualized. The lung bases are unremarkable. No acute osseous abnormality identified. IMPRESSION: Nonspecific gaseous distended loops of colon and small bowel.
--- NOTE | 2025-06-22 16:59 | PROGRESS NOTE- Residence ---
Progress Note - Resident Providers to CC Resident Creating Document: HASMUKH MUNROE RES ~ Antibiotic Timeout Antibiotic Ordered?: Yes Subjective Patient was seen and examined on bedside, she reports she is she is feeling constipated , in the morning she was complaining of abdominal pain and nausea. Currently she said she is only mildly nauseated and her abdominal pain has improved, however she has not passed a stool. Objective Vital Signs Date Time Temp Pulse Resp B/P (MAP) Pulse Ox O2 Delivery O2 Flow Rate FiO2 06/22/25 15:05 87 22 Venturi Mask 12.0 35 06/22/25 14:52 90 06/22/25 11:00 97.6 132/51 (78) Result Diagram: 06/22/25 0546 06/22/25 0546 General: awake, alert oriented to place, time, and person HEENT: No pallor present, no icterus, moist mucous membranes Neck: No masses and tenderness Resp: In respiratory distress, wheezing heard bilaterally which is improving, no crackles. Chest: Normal expansion. Cardiovascular: Regular rhythm,HR elevated, normal S1 and S2 without murmur, rub or gallop Abdomen: Soft and non tender in epigastrium,mildly distended, no organomegaly, no guarding and rigidity, bowel sounds present Neuro: No focal weakness in the upper and lower limb muscles, power of the muscles 5/5 bilateral upper and lower extremities, normal reflexes bilaterally. Cranial nerves intact Extremities: No cyanosis,clubbing or edema Skin: Warm and Dry. Psych: Normal affect Coagulation Studies Laboratory Tests Test 06/19/25 13:22 06/20/25 06:30 D-Dimer 0.99 MG/L FEU (0-0.50) H D-Dimer Comment Prothrombin Time 10.6 SECONDS (9.0-12.0) INR International Normalized Ratio 1.0 INR Coagulation Comments Advance Care Planning Advanced Care plannin - 30 Minutes Plan Plan Acute Hypoxemic Respiratory Failure Secondary to COPD Exacerbation. Sirs criteria (WBC> 54772 , HR> 90, RR> 20) Patient on 12 L of oxygen maintaining oxygen sat of 90. Coughing up with clear sputum in view of this continue Mucinex. Continue 60 mg IV t.i.d. Leukocytosis, procal normal Albuterol Q2h prn and and DuoNeb q.4h Ceftriaxone 1 g day 4 (Stop date 06/23/25) and Zithromax day 4 Received one dose of Decadron 10 mg IV in ER Incentive spirometry COVID and influenza negative, preliminary blood cultures are negative. Using BiPAP intermittently. Acute Heart Failure With Preserved Ejection Fraction Echo on 05/16/2025: Normal LV size and wall thickness. Overall systolic function is normal. Overall LVEF is 60%.Right ventricle is mildly dilated with adequate function. Estimated PA systolic pressure is 50 mmHg. Change Lasix 40 mg IV daily to Lasix 20 mg p.o. daily in view of kidney function. Strict I&O ProBNP 525 Constipation possibly secondary to ileus Abdominal x-ray showed:Nonspecific gaseous distended loops of colon and small bowel. Patient on Colace 100 mg b.i.d and enema In view of her nausea started on Reglan 10 mg q.6 p.r.n. IV Lactic acid normal Patient may need NG tube if she remains nauseated persistently. Acute kidney injury possibly secondary to dehydration Baseline 0.86 Creatinine 1.39 In view of BALAJI decrease the dose of Lasix to 20 mg p.o. Follow up with CMP Leukocytosis possibly secondary to IV methylprednisolone use Patient on IV methylprednisolone 60 mg t.i.d. Hypermagnesemia possibly secondary to milk of magnesia use Magnesium 3.18 in view of this Dced milk of magnesia On senna 1 Tab po hs. Elevated D-dimer D-dimer 0.99 Wells score 1.5, less likely PE CTA on 06/13/25: Shows no PE Allergic eyes Patient was reporting itchiness in her eyes and Anabell feeling in eyes Started olopatadine eyedrops. Peripheral artery disease s/p stent Patient reports she take Plavix Continue Plavix 75 mg on 05/26/25 LDL: 38, Cholestrol 91 Alcohol use disorder Patient last drink was three weeks ago Substance use navigator consulted Import Specialist consulted Tobacco use disorder Patient last cigarette was four weeks ago Substance use navigator consulted Import Specialist consulted Hypertension On lisinopril 30 mg In view View of BALAJI held lisinopril 30 mg. Hyperlipidemia on LDL: 38, Cholestrol 91 Atorvastatin 80 mg and ezetimibe 10 mg Lung Cancer S/P Radiation She reports her last radiation was three years ago. CT chest on 06/13/25 shows 14 mm nodule in the right lower lobe posteriorly. Code status: Full code DVT prophylaxis: heparin GI prophylaxis: pantoprazole 40 mg IV Disposition: Will continue to monitor patient, patient breathing is improving. Hasmukh Munroe PGY 1 IM Date of Service: Jun 22, 2025 Billing Provider: JES MORGAN MD Common Visit Codes: [id number] INP/OBS CARE(HIGH) HASMUKH MUNROE, RES Jun 22, 2025 16:59 JES MORGAN MD Jun 23, 2025 07:14
[2025-06-22] MEDS: mineral oil 133ml enema RC ONE (19:00)
[2025-06-22] MEDS: docusate sod 100mg capsule PO SCH (21:19)
[2025-06-23] VITALS (22 sets, daily range): BP systolic 122–168; BP diastolic 49–82; PULSE 90–110; RESP 14–23; TEMP 96.9–97.9; O2SAT 90–98
[2025-06-23 06:04] LABS: MEAN PLATELET VOLUME 7.6 FL (7.4-10.4); RED CELL DISTRIBUTION WIDTH 14.2 % (11.5-14.5)
[2025-06-23 06:20] LABS: CREATININE 1.59 MG/DL (0.40-0.90); PHOSPHORUS 4.1 MG/DL (2.3-4.5); TOTAL CARBON DIOXIDE 33.4 MMOL/L (24-32); eCRCL 26 ML/MIN; eGFR 32 ML/MIN
[2025-06-23] MEDS: heparin, porcine 5000 units/ml vial SQ SCH (07:49)
[2025-06-23] MEDS: metoclopramide 5 mg/ml inj IV SCH (14:00)
--- NOTE | 2025-06-23 16:51 | PROGRESS NOTE- Residence ---
Progress Note - Resident Providers to CC Resident Creating Document: HASMUKH MUNROE RES ~ Antibiotic Timeout Antibiotic Ordered?: Yes Subjective Patient was seen and examined on bedside, denies abdominal pain,, no vomiting she is passing flatus but has not passed a stool. She reports breathing is improved. She is maintaining oxygen saturation on 4 L Objective Vital Signs Date Time Temp Pulse Resp B/P (MAP) Pulse Ox O2 Delivery O2 Flow Rate FiO2 06/23/25 15:25 100 18 Nasal Cannula 4.0 06/23/25 15:19 98 36 06/23/25 02:00 97.8 126/49 (74) Result Diagram: 06/23/25 0535 06/23/25 0535 General: awake, alert oriented to place, time, and person HEENT: No pallor present, no icterus, moist mucous membranes Neck: No masses and tenderness Resp: In mild respiratory distress, mild wheezing heard bilaterally which is improving, no crackles. Chest: Normal expansion. Cardiovascular: Regular rhythm,HR elevated, normal S1 and S2 without murmur, rub or gallop Abdomen: Soft and non tender in epigastrium,mildly distended, no organomegaly, no guarding and rigidity, bowel sounds present Neuro: No focal weakness in the upper and lower limb muscles, power of the muscles 5/5 bilateral upper and lower extremities, normal reflexes bilaterally. Cranial nerves intact Extremities: No cyanosis,clubbing or edema Skin: Warm and Dry. Psych: Normal affect Coagulation Studies Laboratory Tests Test 06/19/25 13:22 06/20/25 06:30 D-Dimer 0.99 MG/L FEU (0-0.50) H D-Dimer Comment Prothrombin Time 10.6 SECONDS (9.0-12.0) INR International Normalized Ratio 1.0 INR Coagulation Comments Advance Care Planning Advanced Care plannin - 30 Minutes Plan Plan Acute Hypoxemic Respiratory Failure Secondary to COPD Exacerbation. Sirs criteria (WBC> 64831 , HR> 90, RR> 20) Maintaining oxygen saturation on 4 L Continue Mucinex Continue 60 methylprednisoloneV t.i.d. Leukocytosis, procal normal Albuterol Q2h prn and and DuoNeb q.4h Ceftriaxone has been DC and Zithromax day 5 Received one dose of Decadron 10 mg IV in ER Incentive spirometry COVID and influenza negative, preliminary blood cultures are negative. Acute Heart Failure With Preserved Ejection Fraction Echo on 05/16/2025: Normal LV size and wall thickness. Overall systolic function is normal. Overall LVEF is 60%.Right ventricle is mildly dilated with adequate function. Estimated PA systolic pressure is 50 mmHg. Change Lasix 40 mg IV daily to Lasix 20 mg p.o. daily in view of kidney function. Strict I&O ProBNP 525 Constipation possibly secondary to ileus Abdominal x-ray showed:Nonspecific gaseous distended loops of colon and small bowel. Patient on Colace 100 mg b.i.d and enema As patient was not passing stool in view of the started on relistor inj 12 mg. Switch Reglan scheduled to Reglan 10 mg q.6h p.r.n. IV Lactic acid normal Acute kidney injury possibly secondary to dehydration Baseline 0.86 Creatinine 1.59 BUN/Creatinine 20.1 Follow up with CMP Leukocytosis possibly secondary to IV methylprednisolone use Patient on IV methylprednisolone 60 mg t.i.d Leukocytes 17.1 Hypermagnesemia possibly secondary to milk of magnesia use Magnesium yesterday was 3.1 which is decreased to 2.9 today, Dced milk of magnesia Elevated D-dimer D-dimer 0.99 Wells score 1.5, less likely PE CTA on 06/13/25: Shows no PE Allergic eyes Patient was reporting itchiness in her eyes and Anabell feeling in eyes Continue olopatadine eyedrops. Peripheral artery disease s/p stent Patient reports she take Plavix Continue Plavix 75 mg on 05/26/25 LDL: 38, Cholestrol 91 Alcohol use disorder Patient last drink was three weeks ago Substance use navigator consulted Traffic Sergeant consulted Tobacco use disorder Patient last cigarette was four weeks ago Substance use navigator consulted Traffic Sergeant consulted Hypertension On lisinopril 30 mg In view View of BALAJI held lisinopril 30 mg. Hyperlipidemia on LDL: 38, Cholestrol 91 Atorvastatin 80 mg and ezetimibe 10 mg Lung Cancer S/P Radiation She reports her last radiation was three years ago. CT chest on 06/13/25 shows 14 mm nodule in the right lower lobe posteriorly. Code status: Full code DVT prophylaxis: heparin GI prophylaxis: pantoprazole 40 mg IV Disposition: Will continue to monitor patient, patient breathing is improving. Possible discharge tomorrow Hasmukh Munroe PGY 1 IM Date of Service: Jun 23, 2025 Billing Provider: JES MORGAN MD Common Visit Codes: [id number] INP/OBS CARE(HIGH) HASMUKH MUNROE, RES Jun 23, 2025 16:51 JES MORGAN MD Jun 24, 2025 09:22
[2025-06-23] MEDS: methylnaltrexone br 12mg/0.6ml inj***SubQ only SQ ONE (17:55)
[2025-06-23] MEDS: Ensure Enlive - 237ML PO SCH (18:11)
[2025-06-24] VITALS (28 sets, daily range): BP systolic 124–180; BP diastolic 69–136; PULSE 10–107; RESP 15–24; TEMP 96.4–97.8; O2SAT 89–99
[2025-06-24] MEDS: guaiFENesin 200mg/20mg codeine phos 10ml UD oral syrup PO ONE (01:40)
[2025-06-24 06:29] LABS: MEAN PLATELET VOLUME 7.7 FL (7.4-10.4); RED CELL DISTRIBUTION WIDTH 13.9 % (11.5-14.5)
[2025-06-24 06:35] LABS: CREATININE 1.54 MG/DL (0.40-0.90); PHOSPHORUS 4.3 MG/DL (2.3-4.5); TOTAL CARBON DIOXIDE 32.5 MMOL/L (24-32); eCRCL 27 ML/MIN; eGFR 33 ML/MIN
--- NOTE | 2025-06-24 09:38 | RADIOLOGY REPORT ---
Indication: severe consitpation Technique: CT axial images of the abdomen and pelvis are obtained without contrast. Coronal and sagittal reformats were obtained. Radiation Dose Information: CTDI volume is 17 mGy. Dose-length product is 763 mGy*cm Comparison: CT CT ABDOMEN PELVIS on DOS: 05/26/25 FINDINGS: There is limited interpretation of the abdomen and pelvis without administration of intravenous contrast. Lung bases demonstrate right middle and left lower consolidation, atelectasis. 1 cm Right lower lobe solid nodule Adrenal glands, spleen, pancreas unremarkable in shape. Cholelithiasis. Liver unremarkable in shape. Kidneys demonstrate no hydronephrosis, nephrolithiasis. 1 cm right renal cyst. 1 cm left renal hemorrhagic/proteinaceous cysts. Gastric distention. Marked abnormal dilatation of small bowel loops up to 5 cm with air-fluid levels. There is transition point within the mid abdomen/ central mesentery, coronal image 24. Colonic diverticular disease. No secondary signs for appendicitis. Abdominal aortic atherosclerotic disease. Bladder partially distended. No free pelvic fluid. No inguinal lymphadenopathy. Moderate bilateral sacroiliac degenerative joint disease. Moderate to severe thoracolumbar degenerative disc disease. IMPRESSION: Limited evaluation without contrast. Marked/ severe abnormal dilatation small bowel loops up to 5 cm with air-fluid levels consistent with high-grade small bowel obstruction. Recommend stat surgical consultation. There swirling/twisting of the central mesentery best seen on the coronal sequence, image 27, which can be secondary to internal hernia/ volvulus, likely representing the etiology for the small-bowel obstruction. Again, recommend surgical consultation. Right middle lobe and left lower lobe airspace consolidation. Follow-up to resolution. Atherosclerotic disease. Colonic diverticular disease. 1 cm right lower lobe pulmonary nodule. Recommend continued follow-up per fleischner society criteria. Alternatively, PET scan, tissue sampling can be obtained for further evaluation. This was also mentioned on prior CT scans Other findings as described
--- NOTE | 2025-06-24 14:52 | CONSULTATION REPORT ---
History of Present Illness Providers to CC CC: JAMES GODFREY MD ~ Reason for Admit\Admit Dx: Shortness of Breath Refering MD: Luci History of Present Illness Patient is a 74-year-old woman who was admitted three days ago. She was admitted with COPD exacerbation. she states that when she presented to the emergency room she had been experiencing abdominal distention that had become progressively worse, contributing to her shortness of breath. Over the last two days as an inpatient, her abdominal distention has become painful and she is obstipated. She has had an increasing leukocytosis 12.6 on admission now 19.5 today. She rates her abdominal pain as unbearable. Primary team ordered a CT scan that was interpreted as the following: -Marked/ severe abnormal dilatation small bowel loops up to 5 cm with air-fluid levels consistent with high-grade small bowel obstruction. Recommend stat surgical consultation. -There swirling/twisting of the central mesentery best seen on the coronal sequence, image 27, which can be secondary to internal hernia/ volvulus, likely representing the etiology for the small-bowel obstruction. Again, recommend surgical consultation. I was called to evaluate the patient. Patient agrees with the above history She states he had a previous small bowel obstruction that was operated on by Dr. Barber four years ago. She reports no surgeries prior to this. Allergies: Coded Allergies: shrimp (Verified Allergy, Severe, THROAT SWELLING, 06/19/25) Home Medications Home Medications Active Clonidine HCl 0.1 Mg Tablet 1 Tab PO DAILY 30 Days Multi Vitamin Daily (Multivitamin) 1 Each Tablet 1 Tab PO DAILY 30 Days Folic Acid* (Folic Acid) 0.4 Mg Tablet 1 Tab PO DAILY 30 Days B-1 (Thiamine HCl) 100 Mg Tablet 1 Tab PO DAILY 30 Days Reported Prednisone 10 Mg Tablet 3 Tab PO DAILY 5 Days Habitrol 21 MG Patch* (Nicotine) 1 Each Patch.td24 1 Patch TOP DAILY 28 Days Proventil Nebs* (Albuterol) 2.5 Mg/0.5 Ml Vial.neb 2.5 Mg IH Q4H PRN Acidophilus Caplet (Acidophilus/Pectin) 1 Each Tablet 1 Tab PO DAILY 30 Days Benzonatate 100 Mg Capsule 1 Cap PO Q8H 10 Days Symbicort 80-4.5 Mcg Inhaler (Budesonide/Formoterol Fumarate) 80 Mcg-4.5 Mcg/Actuation Hfa.aer.ad 2 Puffs INH Q12H 30 Days Cefdinir* (Cefdinir) 300 Mg Capsule 1 Cap PO Q12H 10 Days Proventil Nebs* (Albuterol) 2.5 Mg/0.5 Ml Vial.neb 1 Vial NEB Q4H 10 Days Lamotrigine 100 Mg Tab.er.24 1 Tab PO BID 30 Days [place] 5/325 MG (Acetaminophen/Hydrocodone Bitart) 5 Mg/325 Mg Tablet 1-2 Tab PO Q4-6 HOURS PRN Guaifenesin 200 Mg Tablet 600 Mg PO Q12H 10 Days Ezetimibe 10 Mg Tablet 1 Tab PO DAILY Bupropion Xl (Bupropion HCl) 300 Mg Tab.er.24h 1 Tab PO DAILY Atorvastatin Calcium 80 Mg Tablet 1 Tab PO DAILY Lisinopril 30 Mg Tablet 1 Tab PO DAILY Clopidogrel (Clopidogrel Bisulfate) 75 Mg Tablet 1 Tab PO DAILY Duloxetine HCl 30 Mg Capsule. 2 Cap PO HS Past Medical History Medical History Comment COPD Hypertension History of alcohol abuse History of nicotine abuse Bipolar disorder Hyperlipidemia History of lung cancer Past Surgical History Surgical History Comment Exploratory laparotomy with lysis of adhesions Multiple orthopedic procedures Endovascular stenting Past Family History Family History Comment Noncontributory Family History: (CABG) Coronary artery bypass grafting FATHER (70 ) brother (55-58 years old) Past Social History Social History Comment Not applicable Physical Exam Last Vital Signs Recorded: Temperature: 97.2, Source: Oral, Heart Rate: 99, Respiratory Rate: 16, BP: 176/89, Pulse Oximetry: 97, Weight: 68.600 Review of Systems ROS ROS Comments: Reviewed and negative with the exception of those found in the history of present illness Results Diagram Lab Result Diagram: 06/24/25 0503 06/24/25 0503 Assessment/Plan Problems/Diagnosis: (1) Small bowel obstruction (2) Abdominal pain (3) Leukocytosis Additional Plan With the patient's history of previous small bowel obstruction and radiology interpretation as potential internal hernia, volvulus or compromise loop of small bowel with small bowel obstruction. With the patient's worsening abdominal pain and leukocytosis Given the above scenario, I believe surgical intervention is necessary to rule out potential compromised bowel related to this small-bowel obstruction. The risks, benefits, and alternatives to an exploratory laparotomy, possible bowel resection were discussed with the patient. Risks include, but are not limited to, bleeding, infection, injury to intra-abdominal structures, leakage from the intestine and the need for additional surgical procedures. Patient verbalized understanding and wishes to proceed with surgery. We will do so as soon as possible. In the interim, please placed nasogastric tube and I have placed an NPO order. JAMES GODFREY MD Jun 24, 2025 14:52
--- NOTE | 2025-06-24 15:14 | RADIOLOGY REPORT ---
Date: 06/24/2025 02:44 PM Examination: DI ABDOMEN,SINGLE VIEW(KUB) History: NG placement verification Comparison: CT CT ABDOMEN PELVIS on DOS: 06/24/25, DI ABDOMEN,SINGLE VIEW(KUB) on DOS: 06/22/25, CT CT ABDOMEN PELVIS on DOS: 05/26/25 TECHNIQUE: Frontal views of the abdomen was obtained. FINDINGS: Heart size is normal. Lungs are clear. No pleural effusion or pneumothorax. No acute osseous abnormality. Reverse right shoulder arthroplasty. Side port of the NG tube is in the midthoracic esophagus. IMPRESSION: Side port of the NG tube is in the midthoracic esophagus. Recommend advancing by 14 cm for better positioning
[2025-06-24] MEDS ORDERED: BUPIVAcaine/PF 2.5mg/ml (0.25%) 10ml vial ONE ×2 (16:28→18:43)
[2025-06-24] MEDS ORDERED: LIDOcaine 1% 30ml preserv. free vial ONE (16:28)
[2025-06-24] MEDS ORDERED: midazolam 1 mg/ML 2ml injection ONE (17:22)
[2025-06-24] MEDS ORDERED: LIDOcaine 2% (20mg/ml) 5ml vial ONE (18:21)
[2025-06-24] MEDS ORDERED: fentaNYL /PF 50mcg/ml 5ml ampule ONE (18:21)
[2025-06-24] MEDS ORDERED: propofol inj 20 ML IV ONE (18:21)
[2025-06-24] MEDS ORDERED: ePHEDrine 50MG/ML INJ. ONE (18:21)
[2025-06-24] MEDS ORDERED: rocuronium 10mg/ml inj IV ONE ×2 (18:21)
[2025-06-24] MEDS ORDERED: ceFOXitin 1000 MG inj ONE ×2 (18:21)
--- NOTE | 2025-06-24 18:27 | PROGRESS NOTE- Residence ---
Progress Note - Resident Providers to CC Resident Creating Document: HASMUKH MUNROE RES ~ Antibiotic Timeout Antibiotic Ordered?: Yes Subjective Patient was seen and examined on bedside, she was complaining of abdominal pain and has not passed a bowel movement. Objective Vital Signs Date Time Temp Pulse Resp B/P (MAP) Pulse Ox O2 Delivery O2 Flow Rate FiO2 06/24/25 15:41 100 17 Nasal Cannula 4.0 06/24/25 15:36 92 36 06/24/25 15:00 97.6 142/79 (100) Result Diagram: 06/24/25 0503 06/24/25 0503 General: awake, alert oriented to place, time, and person HEENT: No pallor present, no icterus, moist mucous membranes Neck: No masses and tenderness Resp: In mild respiratory distress, mild wheezing heard bilaterally which is improving, no crackles. Chest: Normal expansion. Cardiovascular: Regular rhythm,HR elevated, normal S1 and S2 without murmur, rub or gallop Abdomen: Soft and non tender in epigastrium, abdomen distended, no organomegaly, no guarding and rigidity, bowel sounds present Neuro: No focal weakness in the upper and lower limb muscles, power of the muscles 5/5 bilateral upper and lower extremities, normal reflexes bilaterally. Cranial nerves intact Extremities: No cyanosis,clubbing or edema Skin: Warm and Dry. Psych: Normal affect Coagulation Studies Laboratory Tests Test 06/19/25 13:22 06/20/25 06:30 D-Dimer 0.99 MG/L FEU (0-0.50) H D-Dimer Comment Prothrombin Time 10.6 SECONDS (9.0-12.0) INR International Normalized Ratio 1.0 INR Coagulation Comments Advance Care Planning Advanced Care plannin - 30 Minutes Plan Plan Acute Hypoxemic Respiratory Failure Secondary to COPD Exacerbation. Sirs criteria (WBC> 71339 , HR> 90, RR> 20) Maintaining oxygen saturation on 4 L Continue Mucinex Continue 60 methylprednisoloneV t.i.d. Leukocytosis, procal normal Albuterol Q2h prn and and DuoNeb q.4h Ceftriaxone has been DC and Zithromax has been dced Received one dose of Decadron 10 mg IV in ER Incentive spirometry COVID and influenza negative, preliminary blood cultures are negative. Acute Heart Failure With Preserved Ejection Fraction Echo on 05/16/2025: Normal LV size and wall thickness. Overall systolic function is normal. Overall LVEF is 60%.Right ventricle is mildly dilated with adequate function. Estimated PA systolic pressure is 50 mmHg. Lasix has been discontinued in view of kidney function Strict I&O ProBNP 525 High-grade small bowel obstruction. Patient had severe constipation in view of that ordered CT scan which showed :M arked/ severe abnormal dilatation small bowel loops up to 5 cm with air-fluid levels consistent with high-grade small bowel obstruction Abdominal x-ray showed:Nonspecific gaseous distended loops of colon and small bowel. Patient on Colace 100 mg b.i.d and enema As patient was not passing stool in view of the started on relistor inj 12 mg. Switch Reglan scheduled to Reglan 10 mg q.6h p.r.n. IV Lactic acid normal Consulted Dr. Johnson and the patient is gone for exploratory laparotomy. Acute kidney injury possibly secondary to dehydration Baseline 0.86 Creatinine 1.54 BUN/Creatinine 22.7 Follow up with CMP Leukocytosis possibly secondary to IV methylprednisolone use Patient on IV methylprednisolone 60 mg t.i. Leukocytsis 19..5 Decreased the dose of IV methylpredinosone 60 mg TID to BID. Hypermagnesemia possibly secondary to milk of magnesia use Magnesium 2.3, Dced milk of magnesia Elevated D-dimer D-dimer 0.99 Wells score 1.5, less likely PE CTA on 06/13/25: Shows no PE Allergic eyes Patient was reporting itchiness in her eyes and Anabell feeling in eyes Continue olopatadine eyedrops. Peripheral artery disease s/p stent Patient reports she take Plavix Continue Plavix 75 mg on 05/26/25 LDL: 38, Cholestrol 91 Alcohol use disorder Patient last drink was three weeks ago Substance use navigator consulted Hammer Mill Operator consulted Tobacco use disorder Patient last cigarette was four weeks ago Substance use navigator consulted Hammer Mill Operator consulted Hypertension In view View of BALAJI held lisinopril 30 mg Started amlodipine 10 mg. Hyperlipidemia on LDL: 38, Cholestrol 91 Atorvastatin 80 mg and ezetimibe 10 mg Lung Cancer S/P Radiation She reports her last radiation was three years ago. CT chest on 06/13/25 shows 14 mm nodule in the right lower lobe posteriorly, Patient need to follow up outpatient. Code status: Full code DVT prophylaxis: heparin GI prophylaxis: pantoprazole 40 mg IV Disposition: Will continue to monitor patient, patient breathing is improving. Patient underwent for surgery today. Hasmukh Munroe PGY 1 IM Date of Service: Jun 24, 2025 Billing Provider: JES MORGAN MD Common Visit Codes: [id number] INP/OBS CARE(HIGH) HASMUKH MUNROE, RES Jun 24, 2025 18:27 JES MORGAN MD Jun 25, 2025 06:57
[2025-06-24] MEDS ORDERED: BUPIVACAINE liposomal/PF 13.3 MG/ML 10mL vial IM ONE (18:43)
[2025-06-24] MEDS ORDERED: ondansetron/PF 4mg/2ml inj IV PRN (18:45)
[2025-06-24] MEDS ORDERED: labetalol 20mg/4ml (5mg/ml) syringe IV PRN (18:45)
[2025-06-24] MEDS ORDERED: HYDROmorphone/PF 0.2 MG/ML SYRINGE IV PRN ×2 (18:45)
[2025-06-24] MEDS ORDERED: hydrALAZINE 20mg/ml inj. IV PRN (18:45)
[2025-06-24] MEDS ORDERED: morphine 4 MG/ML inj SYRINge IV PRN (18:45)
[2025-06-24] MEDS ORDERED: ringers solution, lacted 1,000 ML IV SCH (18:45)
[2025-06-24] MEDS ORDERED: acetaminophen 1,000mg/100ml IV 100 ML IV PRN (18:45)
[2025-06-24] MEDS ORDERED: ondansetron/PF 4mg/2ml inj ONE (19:19)
[2025-06-24] MEDS ORDERED: dexamethasone sod phosphate 4mg/ml inj. ONE (19:19)
--- NOTE | 2025-06-24 20:06 | OPERATIVE REPORT ---
Operative Report Providers to CC CC: TO GODFREY MD ~ Date of Procedure: Jun 24, 2025 Pre-Operative Diagnosis: Small-bowel obstruction Post-Operative Diagnosis SAME as PRE-Op Procedure Performed Exploratory laparotomy with enterolysis (CPT: 39731) Bilateral transversus abdominis plane nerve blocks by injection using 266 mg of Exparel Surgeon: To Godfrey MD FACS Optical Instrument Inspector None Anesthesiologist: [place] Type of Anesthesia: General Findings: Dense adhesions creating intermittent involvement between the abdominal midline fascia and a loop of small intestine Clear transition point in a serpiginous loop of small intestine densely adherent to the abdominal midline Wound class I Complications None Prosthetics\Implants used: None Estimated Blood Loss: 50 cc Specimen Removed: None Description of Procedure: Patient was brought urgently to the operating room with concerning findings on CT scan for high-grade small bowel obstruction and compromised loop of small bowel. Patient was placed supine and general anesthesia was induced. Pre operative antibiotics were given. Nasogastric tube appeared coiled in the back of the throat and was removed and a new tube advanced into the stomach. Abdomen was prepped and draped in the standard sterile fashion. Generous midline incision was made, starting just above the previous midline scar. Abdomen was entered in the upper epigastrium. As the fascial incision was lengthened, it was immediately apparent that there were loops of small intestine densely adherent to the abdominal midline fascia. The fascial incision was opened inferiorly, avoiding the central portion in the abdomen was entered below the area of adhesions. About 1 hour was spent lysing adhesions carefully using Metzenbaum scissors away from the abdominal midline until I was completely able to open the fascial incision. Further enterolysis continued until the loop of involved intestine was completely mobilized. This loop was then eviscerated. Distally, the small bowel was fairly decompressed and proximally, the small bowel was significantly dilated. With this the most likely source of the small bowel obstruction, attention was turned to mobilizing the serpiginous segment of small intestine with interloop adhesions. Once the entire involved loop was mobilized away from the interloop adhesions, it was inspected and found to be intact. There was a moderate-sized serosal tear that was reapproximated with interrupted 3-0 Vicryl sutures. Terminal ileum was identified and small intestine was run proximally through the previously involved segment all the way up to the ligament of Treitz. The small bowel contents were milked back towards the stomach after confirming placement of nasogastric tube and the contents were suctioned. About 1 L of feculent suctioned was retrieved in the canister. The stomach was completely decompressed. Small bowel was reduced back into the abdomen. Bilateral transversus abdominis plane nerve blocks by injection using 266 mg of Exparel mixed with 20 cc of 0.25% Marcaine were then placed. Midline fascia was closed with a running absorbable PDS 0 suture. Midline wound was irrigated and skin closed with skin shamar. Dressing was applied. Patient was taken to the postanesthesia care unit in fair condition. Counts repoted as correct: Yes TO GODFREY MD Jun 24, 2025 20:06
--- NOTE | 2025-06-24 20:10 | RADIOLOGY REPORT ---
CHEST RADIOGRAPH Indication: POST OP Technique: Single frontal view of the chest was obtained Comparison: DI CHEST,SINGLE VIEW on DOS: 06/19/25, DI CHEST,SINGLE VIEW on DOS: 06/13/25, DI CHEST,SINGLE VIEW on DOS: 05/26/25 FINDINGS: Lines and Tubes: Right IJ approach central venous catheter terminating over the distal SVC. Enteric tube is in satisfactory position. Lungs: Interstitial opacities of bilateral lungs with left mid lung zone, right upper to mid lung zone and right lower lung zone patchy opacities. Indistinctness of the left hemidiaphragm. No pneumothorax. Cardiomediastinal contours: Borderline cardiomegaly with moderate atherosclerotic calcification and uncoiling of the aorta. Bones: No acute osseous abnormality. IMPRESSION: Interstitial and alveolar type opacities of bilateral lungs which represent infectious process in the right clinical setting with underlying fibrotic Changes not excluded. Possible trace left-sided pleural effusion/left basilar atelectasis. Endotracheal and enteric tubes are in satisfactory position.
[2025-06-25] VITALS (17 sets, daily range): BP systolic 131–160; BP diastolic 61–81; PULSE 86–100; RESP 16–21; TEMP 97.1–98.6; O2SAT 91–99
[2025-06-25 06:05] LABS: MEAN PLATELET VOLUME 7.5 FL (7.4-10.4); RED CELL DISTRIBUTION WIDTH 13.8 % (11.5-14.5)
[2025-06-25 06:28] LABS: CREATININE 1.47 MG/DL (0.40-0.90); TOTAL CARBON DIOXIDE 32.5 MMOL/L (24-32); eCRCL 29 ML/MIN; eGFR 35 ML/MIN
[2025-06-25] MEDS: normal saline 1000ml 1,000 ML IV SCH (09:53)
--- NOTE | 2025-06-25 17:23 | PROGRESS NOTE- Residence ---
Progress Note - Resident Providers to CC Resident Creating Document: JEANNETTE MACK RES ~ Antibiotic Timeout Antibiotic Ordered?: No Subjective Patient was seen and examined at the bedside today. Complains of abdominal pain and abdomen appears to be distended. s/p exploratory laparotomy and lysis of additions by Dr. Johnson. POD #1 Objective Vital Signs Date Time Temp Pulse Resp B/P (MAP) Pulse Ox O2 Delivery O2 Flow Rate FiO2 06/25/25 16:14 18 06/25/25 15:22 100 94 Nasal Cannula* 3 32 06/25/25 08:00 154/72 (99) 06/25/25 02:00 97.1 Result Diagram: 06/25/25 0530 06/25/25 0530 General: awake, alert oriented to place, time, and person, mild distress because of pain HEENT: No pallor present, no icterus, moist mucous membranes Neck: No masses and tenderness Resp: Bilateral breath sounds are clear. Cardiovascular: Regular rhythm,HR elevated, normal S1 and S2 without murmur, rub or gallop Abdomen: Soft, diffuse tenderness, abdomen appears distended distended, no guarding and rigidity, bowel sounds could not be heard. Neuro: No focal weakness in the upper and lower limb muscles, power of the muscles 5/5 bilateral upper and lower extremities, normal reflexes bilaterally. Cranial nerves intact Extremities: No cyanosis,clubbing or edema Skin: Warm and Dry. Coagulation Studies Laboratory Tests Test 06/19/25 13:22 06/20/25 06:30 D-Dimer 0.99 MG/L FEU (0-0.50) H D-Dimer Comment Prothrombin Time 10.6 SECONDS (9.0-12.0) INR International Normalized Ratio 1.0 INR Coagulation Comments Plan Plan Assessment This is a 74-year-old female with a history of COPD, PAD s/p stent, hypertension, lung cancer s/p radiation, came to the ER primarily for shortness of breadth, initially admitted for COPD exacerbation. During the course patient complained of abdominal pain and obstipation CT abdomen was done which showed signs of small-bowel obstruction. Dr. Johnson was consulted, exploratory laparotomy with lysis of adhesions was done on 05/24/2025. POD #1 Plan Small-bowel obstruction s/p exploratory laparotomy with enterolysis on 06/18/2025 POD#1 During the stay patient had abdominal pain and obstipation. CT abdomen showed severe dilation of small bowel loops to 5 cm consistent with high-grade bowel obstruction. Dr. Johnson was consulted and exploratory laparotomy with enterolysis and bilateral transverse abdominis plane now blocks was done. Currently patient continues to have abdominal pain and abdominal distention Bowel sounds are not heard yet. Continues to be NPO with ice chips. Pain management-morphine, Dilaudid PRN Acute hypoxemic respiratory failure likely secondary to COPD exacerbation Currently on 3 L of oxygen with nasal cannula Influenza, COVID negative Methylprednisolone 60 mg t.i.d. decreased to to 40 mg b.i.d. DuoNebs q.4 PRN. Spirometry Q 15. D-dimer 0.99 Wells score 1.5, less likely PE CTA on 06/13/25: Shows no PE Acute exacerbation of Chronic CHF with preserved ejection fraction-improved ProBNP 525 Echo on 05/16/2025 showed an ejection fraction of 60%, PA pressure 50 mmHg Lasix discontinued in view of BALAJI BALAJI likely secondary to renal tubular stasis. Hyponatremia, hypochloremia Creatinine improving, 1.47 today. Sodium 128, chloride 90 Baseline creatinine on 06/19/2025- 0.96 Continue D5 half NS@ 70 mL/hour We will continue to monitor with repeat BMP. Reactive leukocytosis WBC count 20.5 Likely secondary to surgery.vs steroid use Peripheral artery disease s/p stent on 05/26/25 LDL: 38, Cholestrol 91 Held Plavix as patient is currently NPO. Hypertension Hyperlipidemia on LDL: 38, Cholestrol 91 Hydralazine 10 mg p.r.n.. Allergic eyes Patient was reporting itchiness in her eyes and Anabell feeling in eyes Continue olopatadine eyedrops. Alcohol use disorder Tobacco use disorder Substance use navigator consulted Analyst Competitive Intelligence consulted Lung Cancer S/P Radiation She reports her last radiation was three years ago. CT chest on 06/13/25 shows 14 mm nodule in the right lower lobe posteriorly, Patient need to follow up outpatient. Code status: Full code DVT prophylaxis: heparin GI prophylaxis: pantoprazole 40 mg IV Diet: NPO Jeannette Mack M.D PGY2 Date of Service: Jun 25, 2025 Billing Provider: JES MORGAN MD Common Visit Codes: [id number] INP/OBS CARE(HIGH) JEANNETTE MACK, RES Jun 25, 2025 17:23 JES MORGAN MD Jun 26, 2025 07:51
[2025-06-25] MEDS: methylPREDNISolone sod succ/PF 40mg inj. IV SCH (20:12)
[2025-06-25] MEDS ORDERED: normal saline 1000ml 1,000 ML IV SCH (21:30)
--- NOTE | 2025-06-25 21:30 | PROGRESS NOTE ---
Progress Note Dictate Providers to CC ~ Progress Note: Subsequent surgical care on a 74-year-old woman who is postoperative day 1, status post exploratory laparotomy with fairly extensive enterolysis for high- grade small bowel obstruction Patient very emotional today and stating that she wishes to . I was called in at 3:30 a.m. this morning as she was having some bleeding from the wound. I opened the wound and packed it with Surgicel gauze. Plan for delayed primary closure tomorrow at the bedside Nasogastric tube in place Midline wound dressed I had a long discussion with the patient and assured her that surgery was successful and she should have resolution of her bowel obstruction in the next couple of days At the end of the conversation, patient no longer had any wishes to stop care and she agrees to continue treatment as planned Continue nasogastric tube Pulmonary/medical care per the hospitalist service I will close the patient's wound at the bedside tomorrow Antibiotic Ordered?: Yes Objective Vitals Vital Signs Date Time Temp Pulse Resp B/P (MAP) Pulse Ox O2 Delivery O2 Flow Rate FiO2 06/25/25 20:11 14 06/25/25 19:06 99 94 Nasal Cannula* 3 32 06/25/25 16:00 152/72 (98) 06/25/25 02:00 97.1 Lab Results: 06/25/25 0530 06/25/25 0530 Coagulation Studies Laboratory Tests Test 06/19/25 13:22 06/20/25 06:30 D-Dimer 0.99 MG/L FEU (0-0.50) H D-Dimer Comment Prothrombin Time 10.6 SECONDS (9.0-12.0) INR International Normalized Ratio 1.0 INR Coagulation Comments Problem\Assessment\Plan Problems/Diagnosis: (1) Small bowel obstruction (2) Abdominal pain (3) Leukocytosis JAMES GODFREY MD Jun 25, 2025 21:30
[2025-06-25] MEDS: HYDROmorph/NS 0.2 mg/ml PCA 100 ML IV SCH (23:00)
[2025-06-26] VITALS (16 sets, daily range): BP systolic 92–179; BP diastolic 49–94; PULSE 14–98; RESP 12–22; TEMP 97.3–98.5; O2SAT 92–97
[2025-06-26 03:02] LABS: MEAN PLATELET VOLUME 7.4 FL (7.4-10.4); RED CELL DISTRIBUTION WIDTH 13.7 % (11.5-14.5)
[2025-06-26 03:12] LABS: CREATININE 1.00 MG/DL (0.40-0.90); TOTAL CARBON DIOXIDE 33.8 MMOL/L (24-32); eCRCL 42 ML/MIN; eGFR 54 ML/MIN
[2025-06-26 05:53] LABS: OSMOLALITY UA 479.0 MOSM/K (50-1400)
[2025-06-26 05:55] LABS: URINE AMPHETAMINE SCREEN NEGATIVE (Neg); URINE BARBITUATE SCREEN NEGATIVE (Neg); URINE BENZODIAZEPINES SCREEN NEGATIVE (Neg); URINE CANNABINOID SCREEN NEGATIVE (Neg); URINE COCAINE SCREEN NEGATIVE (Neg); URINE METHADONE SCREEN NEGATIVE (Neg); URINE OPIATE SCREEN POSITIVE (Neg); URINE PHENCYCLIDINE SCREEN NEGATIVE (Neg)
[2025-06-26 06:20] LABS: CREATININE,URINE RANDOM 58.0 MG/DL; UA UREA RANDOM 771.0 MG/DL
[2025-06-26] MEDS: hydrALAZINE 20mg/ml inj. IV PRN (11:29)
[2025-06-26 14:44] LABS: CREATININE 0.87 MG/DL (0.40-0.90); PHOSPHORUS 2.4 MG/DL (2.3-4.5); TOTAL CARBON DIOXIDE 29.7 MMOL/L (24-32); eCRCL 48 ML/MIN; eGFR 63 ML/MIN
--- NOTE | 2025-06-26 20:09 | PROGRESS NOTE- Residence ---
Progress Note - Resident Providers to CC Resident Creating Document: VANESSA BARBA RES ~ Antibiotic Timeout Antibiotic Ordered?: No Subjective The patient was seen and examined at the bedside today. The patient appeared anxious during the evaluation. Post-exploratory laparotomy with lysis of adhesions performed by Dr. Johnson, the patient has not passed flatus or had a bowel movement. This is postoperative day #2. The patient currently reports pain at 3/10 and is on a Dilaudid GROWTH HACKER pump. Patient was on NG tube Started peripheral parenteral nutrition Objective Vital Signs Date Time Temp Pulse Resp B/P (MAP) Pulse Ox O2 Delivery O2 Flow Rate FiO2 06/26/25 17:00 22 06/26/25 13:05 89 152/79 (103) 06/26/25 11:49 Nasal Cannula 4.0 06/26/25 11:43 94 36 06/26/25 11:00 97.5 Result Diagram: 06/26/25 0249 06/26/25 1419 General: Awake, alert, and oriented to person, place, and time. Mild distress due to pain. HEENT: No pallor or icterus. Mucous membranes moist. Neck: No masses or tenderness. Respiratory: Bilateral breath sounds clear. Cardiovascular: Regular rhythm; heart rate elevated. Normal S1 and S2; no murmurs, rubs, or gallops. Abdomen: Soft with diffuse tenderness. Abdomen appears distended. No guarding or rigidity. Bowel sounds absent. Neurologic: No focal weakness in upper or lower limbs. Muscle strength 5/5 bilaterally. Reflexes normal. Cranial nerves intact. Extremities: No cyanosis, clubbing, or edema. Skin: Warm and dry. Coagulation Studies Laboratory Tests Test 06/19/25 13:22 06/20/25 06:30 D-Dimer 0.99 MG/L FEU (0-0.50) H D-Dimer Comment Prothrombin Time 10.6 SECONDS (9.0-12.0) INR International Normalized Ratio 1.0 INR Coagulation Comments Advance Care Planning Advanced Care plannin - 30 Minutes Assessment Assessment This is a 74-year-old female with a history of COPD, peripheral arterial disease status post stent placement, hypertension, and lung cancer status post radiation therapy. She presented to the ER primarily with shortness of breath and was initially admitted for COPD exacerbation. During the hospital course, the patient developed abdominal pain and obstipation. A CT scan of the abdomen revealed findings consistent with small- bowel obstruction. Dr. Johnson was consulted, and an exploratory laparotomy with lysis of adhesions was performed on 05/24/2025. The patient is currently on postoperative day #2. Recommended Continuation of nasogastric tube Today Patient was started on peripheral parental nutrition Plan Plan Small-bowel obstruction s/p exploratory laparotomy with enterolysis on 1 POD#2 During the hospital stay, the patient developed abdominal pain and obstipation. A CT scan of the abdomen revealed severe dilation of small bowel loops up to 5 cm, consistent with high-grade small-bowel obstruction. Dr. Johnson was consulted, and an exploratory laparotomy with enterolysis and bilateral transverse abdominis plane blocks was performed. Bowel sounds are absent. Patient remains NPO, allowed ice chips only. Started patient on Peripheral Parental Nutrition Pain management: Morphine and Dilaudid as needed. Acute hypoxemic respiratory failure likely 2/2 COPD exacerbation Currently on 4 L of oxygen with nasal cannula Influenza, COVID negative Methylprednisolone 60 mg t.i.d. decreased to to 40 mg b.i.d. DuoNebs q.4 PRN. Spirometry Q 15. D-dimer 0.99 Wells score 1.5, less likely PE CTA on 06/13/25: Shows no PE Acute exacerbation of Chronic CHF with preserved ejection fraction-improved ProBNP 525 Echo on 05/16/2025 showed an ejection fraction of 60%, PA pressure 50 mmHg Lasix discontinued in view of BALAJI BALAJI likely secondary to renal tubular stasis. Hyponatremia, hypochloremia Creatinine improving, 0.87 today. Sodium 129, chloride 95 Baseline creatinine on 06/19/2025- 0.96 Started D10 water IV 30 cc/hour We will continue to monitor with repeat BMP. Reactive leukocytosis WBC count 20.5 Likely secondary to surgery.vs steroid use Peripheral artery disease s/p stent on 05/26/25 LDL: 38, Cholestrol 91 Held Plavix as patient is currently NPO. Hypertension Hyperlipidemia on LDL: 38, Cholestrol 91 Hydralazine 10 mg p.r.n.. Allergic eyes Patient was reporting itchiness in her eyes and Anabell feeling in eyes Continue olopatadine eyedrops. Alcohol use disorder Tobacco use disorder Substance use navigator consulted Automatic Drilling Machine Operator consulted Lung Cancer S/P Radiation She reports her last radiation was three years ago. CT chest on 06/13/25 shows 14 mm nodule in the right lower lobe posteriorly, Patient need to follow up outpatient. Code status: Full code DVT prophylaxis: heparin GI prophylaxis: pantoprazole 40 mg IV Diet: NPO,PPN Vanessa Barba PGY1-Internal Medicine Resident Date of Service: Jun 26, 2025 Billing Provider: JES MORGAN MD Common Visit Codes: [id number] INP/OBS CARE(HIGH) VANESSA BARBA, RES Jun 26, 2025 20:09 JES MORGAN MD Jun 27, 2025 07:08
[2025-06-26] MEDS: FAT EMUL/SOY/MCT/OLIV/FISH OIL (SMOF) 100 ML IV SCH (21:00)
[2025-06-26] MEDS: ZINC/COPPER/MANGANESE/SELENIUM 1 ML, chromic chloride inj. 10 MCG, MVI, adult No.4 with... IV SCH (21:01)
[2025-06-27] VITALS (15 sets, daily range): BP systolic 142–185; BP diastolic 65–89; PULSE 89–107; RESP 14–22; TEMP 96.7–97.6; O2SAT 88–97
[2025-06-27 03:58] LABS: CREATININE 0.81 MG/DL (0.40-0.90); PHOSPHORUS 2.4 MG/DL (2.3-4.5); TOTAL CARBON DIOXIDE 29.2 MMOL/L (24-32); eCRCL 52 ML/MIN; eGFR 69 ML/MIN
[2025-06-27 08:58] LABS: MEAN PLATELET VOLUME 7.4 FL (7.4-10.4); RED CELL DISTRIBUTION WIDTH 13.5 % (11.5-14.5)
[2025-06-27] MEDS ORDERED: HYDROmorphone/PF 0.2 MG/ML SYRINGE IV PRN (10:00)
[2025-06-27] MEDS: PCA WASTE DOCUMENTATION 1 MG ML MC SCH (10:46)
[2025-06-27 19:38] LABS: TOTAL VOLUME 24HRS,URINE 700.0 ML
[2025-06-27 19:43] LABS: UREA NITROGEN 24HR,URINE 4.8 GM/24HR (7-20)
--- NOTE | 2025-06-27 19:43 | PROGRESS NOTE- Residence ---
Progress Note - Resident Providers to CC Resident Creating Document: VANESSA BARBA RES ~ Antibiotic Timeout Antibiotic Ordered?: No Subjective The patient was seen and examined at the bedside today. No acute overnight symptoms reported and patient reporters improvement in her symptoms Post-exploratory laparotomy with lysis of adhesions performed by Dr. Johnson, the patient has not passed flatus or had a bowel movement. This is postoperative day #3. Patient is currently on ppn Objective Vital Signs Date Time Temp Pulse Resp B/P (MAP) Pulse Ox O2 Delivery O2 Flow Rate FiO2 06/27/25 11:46 89 22 Nasal Cannula 4.0 06/27/25 11:39 88 32 06/27/25 11:02 145/89 (107) 06/27/25 10:00 97.0 Result Diagram: 06/27/25 0826 06/27/25 0300 General: Awake, alert, and oriented to person, place, and time. Mild distress due to pain. HEENT: No pallor or icterus. Mucous membranes moist. Neck: No masses or tenderness. Respiratory: Bilateral breath sounds clear. Cardiovascular: Regular rhythm; heart rate elevated. Normal S1 and S2; no murmurs, rubs, or gallops. Abdomen: Abdomen appears distended, Mild tender on palpation,Bowel sounds are not heard, No guarding or rigidity Neurologic: No focal weakness in upper or lower limbs. Muscle strength 5/5 bilaterally. Reflexes normal. Cranial nerves intact. Extremities: No cyanosis, clubbing, or edema. Skin: Warm and dry. Coagulation Studies Laboratory Tests Test 06/19/25 13:22 06/20/25 06:30 D-Dimer 0.99 MG/L FEU (0-0.50) H D-Dimer Comment Prothrombin Time 10.6 SECONDS (9.0-12.0) INR International Normalized Ratio 1.0 INR Coagulation Comments Advance Care Planning Advanced Care plannin - 30 Minutes Assessment Assessment This is a 74-year-old female with a history of COPD, peripheral arterial disease status post stent placement, hypertension, and lung cancer status post radiation therapy. She presented to the ER primarily with shortness of breath and was initially admitted for COPD exacerbation. During the hospital course, the patient developed abdominal pain and obstipation. A CT scan of the abdomen revealed findings consistent with small- bowel obstruction. Dr. Johnson was consulted, and an exploratory laparotomy with lysis of adhesions was performed on 05/24/2025. The patient is currently on postoperative day #3. Recommended Continuation of nasogastric tube Today Patient was started on peripheral parental nutrition Plan Plan Small-bowel obstruction s/p exploratory laparotomy with enterolysis on 1 POD#3 During the hospital stay, the patient developed abdominal pain and obstipation. A CT scan of the abdomen revealed severe dilation of small bowel loops up to 5 cm, consistent with high-grade small-bowel obstruction. Dr. Johnson was consulted, and an exploratory laparotomy with enterolysis and bilateral transverse abdominis plane blocks was performed. Bowel sounds are absent. Patient remains NPO, allowed ice chips only.currently on Peripheral Parental Nutrition Pain management: Morphine and Dilaudid as needed. is on board, appreaciated recommondations Acute hypoxemic respiratory failure likely 2/2 COPD exacerbation Currently on 3 L of oxygen with nasal cannula Influenza, COVID negative CTA on 06/13/25: Shows no PE Continue Solumedrol 40 mg IV BID, DuoNebs q.4 PRN,Spirometry Q 15. Acute exacerbation of Chronic CHF with preserved ejection fraction-improved ProBNP 525 Echo on 05/16/2025 showed an ejection fraction of 60%, PA pressure 50 mmHg Lasix discontinued in view of BALAJI BALAJI likely secondary to renal tubular stasis.-improving Hyponatremia, hypochloremia Creatinine improving, 0.81 today. Sodium 132, chloride 97 Baseline creatinine on 06/19/2025- 0.96 on D10 water IV 30 cc/hour We will continue to monitor with repeat BMP. Reactive leukocytosis WBC count 18.7 Likely secondary to surgery.vs steroid use Peripheral artery disease s/p stent on 05/26/25 LDL: 38, Cholestrol 91 Held Plavix as patient is currently NPO. Hypertension Hyperlipidemia on LDL: 38, Cholestrol 91 Hydralazine 10 mg p.r.n.. Allergic eyes Patient was reporting itchiness in her eyes and Anabell feeling in eyes Continue olopatadine eyedrops. Alcohol use disorder Tobacco use disorder Substance use navigator consulted Plodding Operator consulted Lung Cancer S/P Radiation She reports her last radiation was three years ago. CT chest on 06/13/25 shows 14 mm nodule in the right lower lobe posteriorly, Patient need to follow up outpatient. Code status: Full code DVT prophylaxis: heparin GI prophylaxis: pantoprazole 40 mg IV Diet: NPO,PPN Vanessa Barba PGY1-Internal Medicine Resident This Note has been reviewed by Pgy 2 and Pgy 3 Date of Service: Jun 27, 2025 Billing Provider: JES MORGAN MD Common Visit Codes: [id number] INP/OBS CARE(HIGH) VANESSA BARBA, RACHNA Jun 27, 2025 19:43 JES MORGAN MD Jun 28, 2025 07:53
[2025-06-27] MEDS: HYDROmorphone inj. 0.5 MG/0.5 ML DISP.SYRIN IV PRN (23:07)
[2025-06-28] VITALS (17 sets, daily range): BP systolic 129–152; BP diastolic 63–79; PULSE 74–120; RESP 14–20; TEMP 95.2–98; O2SAT 80–97
[2025-06-28 03:48] LABS: MEAN PLATELET VOLUME 7.3 FL (7.4-10.4); RED CELL DISTRIBUTION WIDTH 13.7 % (11.5-14.5)
[2025-06-28 03:55] LABS: CREATININE 0.72 MG/DL (0.40-0.90); PHOSPHORUS 3.1 MG/DL (2.3-4.5); TOTAL CARBON DIOXIDE 28.1 MMOL/L (24-32); eCRCL 58 ML/MIN; eGFR 79 ML/MIN
[2025-06-28] MEDS: guaiFENesin ER 600mg tablet PO SCH (08:47)
[2025-06-28] MEDS: methylPREDNISolone sod succ/PF 40mg inj. IV SCH (08:47)
[2025-06-28] MEDS ORDERED: HYDROcodone/acetaminophen 10/325mg tab PO PRN (11:55)
[2025-06-28 12:30] LABS: PRO BRAIN NATRIURETIC PEPTIDE 404 PG/ML (0-450)
--- NOTE | 2025-06-28 15:41 | PROGRESS NOTE ---
Progress Note Dictate Providers to CC ~ Progress Note: Subsequent surgical care on a 74-year-old woman who is postoperative day 4, status post exploratory laparotomy with fairly extensive enterolysis for high- grade small bowel obstruction Patient feeling much better States she has passed a lot of flatus Delayed primary closure on Wednesday; midline incision closed and clean Full liquid diet NG tube discontinued Antibiotic Ordered?: N/A Objective Vitals Vital Signs Date Time Temp Pulse Resp B/P (MAP) Pulse Ox O2 Delivery O2 Flow Rate FiO2 06/28/25 15:09 100 20 Nasal Cannula 4.0 06/28/25 15:06 95 40 06/28/25 10:00 97.3 152/63 (92) Lab Results: 06/28/25 0330 06/28/25 0330 Coagulation Studies Laboratory Tests Test 06/19/25 13:22 06/20/25 06:30 D-Dimer 0.99 MG/L FEU (0-0.50) H D-Dimer Comment Prothrombin Time 10.6 SECONDS (9.0-12.0) INR International Normalized Ratio 1.0 INR Coagulation Comments Problem\Assessment\Plan Problems/Diagnosis: (1) Small bowel obstruction (2) Abdominal pain (3) Leukocytosis JAMES GODFREY MD Jun 28, 2025 15:41
[2025-06-28] MEDS: HYDROcodone/acetaminophen 5mg/325mg tablet PO PRN (16:03)
[2025-06-28] MEDS: ipratropium/albuterol 3ml nebule NEB PRN (17:28)
--- NOTE | 2025-06-28 21:03 | PROGRESS NOTE- Residence ---
Progress Note - Resident Providers to CC Resident Creating Document: VANESSA BARBA RES ~ Antibiotic Timeout Antibiotic Ordered?: No Subjective The patient was seen and examined at the bedside today. No acute overnight symptoms reported postoperative day 4 following exploratory laparotomy with extensive adhesiolysis for high-grade small bowel obstruction. Patient reports significant improvement and has passed substantial flatus. Objective Vital Signs Date Time Temp Pulse Resp B/P (MAP) Pulse Ox O2 Delivery O2 Flow Rate FiO2 06/28/25 20:05 101 18 97 Nasal Cannula* 4 36 06/28/25 10:00 97.3 152/63 (92) Result Diagram: 06/28/25 0330 06/28/25 0330 General: Awake, alert, and oriented to person, place, and time. Mild distress due to pain. HEENT: No pallor or icterus. Mucous membranes moist. Neck: No masses or tenderness. Respiratory: Bilateral breath sounds clear. Cardiovascular: Regular rhythm; heart rate elevated. Normal S1 and S2; no murmurs, rubs, or gallops. Abdomen: Abdomen appears distended, Mild tender on palpation, bowel sounds are heard on auscultation, No guarding or rigidity Neurologic: No focal weakness in upper or lower limbs. Muscle strength 5/5 bilaterally. Reflexes normal. Cranial nerves intact. Extremities: No cyanosis, clubbing, or edema. Skin: Warm and dry. Coagulation Studies Laboratory Tests Test 06/19/25 13:22 06/20/25 06:30 D-Dimer 0.99 MG/L FEU (0-0.50) H D-Dimer Comment Prothrombin Time 10.6 SECONDS (9.0-12.0) INR International Normalized Ratio 1.0 INR Coagulation Comments Advance Care Planning Advanced Care plannin - 30 Minutes Assessment Assessment This is a 74-year-old female with a history of COPD, peripheral arterial disease status post stent placement, hypertension, and lung cancer status post radiation therapy. She presented to the ER primarily with shortness of breath and was initially admitted for COPD exacerbation. During the hospital course, the patient developed abdominal pain and obstipation. A CT scan of the abdomen revealed findings consistent with small- bowel obstruction. Dr. Johnson was consulted, and an exploratory laparotomy with lysis of adhesions was performed on 05/24/2025. The patient is currently on postoperative day #3. Recommended Continuation of nasogastric tube Today Patient was started on peripheral parental nutrition Plan Plan Small-bowel obstruction s/p exploratory laparotomy with enterolysis on 1 POD#[address] Johnson During the hospital stay, the patient developed abdominal pain and obstipation. A CT scan of the abdomen revealed severe dilation of small bowel loops up to 5 cm, consistent with high-grade small-bowel obstruction. recommended removal of NGT and continuation for full liquid diet Pain controlled with [place] Acute hypoxemic respiratory failure likely 2/2 COPD exacerbation Currently on 3 L of oxygen with nasal cannula Influenza, COVID negative CTA on 06/13/25: Shows no PE Solu-Medrol 40 mg IV daily, DuoNebs q.4 PRN,Spirometry Q 15. Acute exacerbation of Chronic CHF with preserved ejection fraction-improved ProBNP 525 at the time of admission Echo on 05/16/2025 showed an ejection fraction of 60%, PA pressure 50 mmHg Today the patient pro BNP is 404 Lasix discontinued in view of BALAJI BALAJI likely secondary to renal tubular stasis.-improving Hyponatremia, hypochloremia Creatinine improving, Sodium 131, chloride 96 Baseline creatinine on 06/19/2025- 0.96 on D10 water IV 30 cc/hour We will continue to monitor with repeat BMP. Reactive leukocytosis WBC count 20.3 Likely secondary to surgery.vs steroid use Peripheral artery disease s/p stent on 05/26/25 LDL: 38, Cholestrol 91 Will continue Plavix and tomorrow Hypertension Hyperlipidemia on LDL: 38, Cholestrol 91 Hydralazine 10 mg p.r.n.. Allergic eyes Patient was reporting itchiness in her eyes and Anabell feeling in eyes Continue olopatadine eyedrops. Alcohol use disorder Tobacco use disorder Substance use navigator consulted Auto Wash Buffer consulted Lung Cancer S/P Radiation She reports her last radiation was three years ago. CT chest on 06/13/25 shows 14 mm nodule in the right lower lobe posteriorly, Patient need to follow up outpatient. Code status: Full code DVT prophylaxis: heparin GI prophylaxis: pantoprazole 40 mg IV Diet: liquid diet Vanessa Barba PGY1-Internal Medicine Resident This Note has been reviewed by Pgy 2 and Pgy 3 Date of Service: Jun 28, 2025 Billing Provider: JES MORGAN MD Common Visit Codes: [id number] INP/OBS CARE(HIGH) VANESSA BARBA, RES Jun 28, 2025 21:03 JES MORGAN MD Jun 29, 2025 06:56
[2025-06-29] VITALS (12 sets, daily range): BP systolic 129–157; BP diastolic 50–73; PULSE 91–117; RESP 14–24; TEMP 97.1–98.3; O2SAT 90–96
[2025-06-29 06:37] LABS: MEAN PLATELET VOLUME 8.1 FL (7.4-10.4); RED CELL DISTRIBUTION WIDTH 13.5 % (11.5-14.5)
[2025-06-29 06:43] LABS: CREATININE 0.70 MG/DL (0.40-0.90); PHOSPHORUS 2.0 MG/DL (2.3-4.5); TOTAL CARBON DIOXIDE 27.2 MMOL/L (24-32); eCRCL 60 ML/MIN; eGFR 82 ML/MIN
[2025-06-29] MEDS: Ensure Enlive - 237ML PO SCH (13:00)
[2025-06-29] MEDS ORDERED: methylnaltrexone br 12mg/0.6ml inj***SubQ only SQ PRN (13:25)
[2025-06-29] MEDS: methylnaltrexone br 12mg/0.6ml inj***SubQ only SQ ONE (14:10)
--- NOTE | 2025-06-29 14:32 | PROGRESS NOTE ---
Progress Note Dictate Providers to CC ~ Progress Note: Subsequent surgical care on a 74-year-old woman who is postoperative day 5, status post exploratory laparotomy with fairly extensive enterolysis for high- grade small bowel obstruction Patient feeling much better States she has passed a lot of flatus Delayed primary closure on Wednesday; midline incision closed and clean Diet as tolerated Antibiotic Ordered?: N/A Objective Vitals Vital Signs Date Time Temp Pulse Resp B/P (MAP) Pulse Ox O2 Delivery O2 Flow Rate FiO2 06/29/25 11:23 110 18 93 Nasal Cannula* 4 36 06/29/25 09:51 98.2 136/71 (92) Lab Results: 06/29/25 0547 06/29/25 0547 Coagulation Studies Laboratory Tests Test 06/19/25 13:22 06/20/25 06:30 D-Dimer 0.99 MG/L FEU (0-0.50) H D-Dimer Comment Prothrombin Time 10.6 SECONDS (9.0-12.0) INR International Normalized Ratio 1.0 INR Coagulation Comments Problem\Assessment\Plan Problems/Diagnosis: (1) Small bowel obstruction (2) Abdominal pain (3) Leukocytosis JAMES GODFREY MD Jun 29, 2025 14:32
--- NOTE | 2025-06-29 20:47 | PROGRESS NOTE- Residence ---
Progress Note - Resident Providers to CC Resident Creating Document: VANESSA BARBA RES ~ Antibiotic Timeout Antibiotic Ordered?: No Subjective The patient was seen and examined at the bedside today. No acute overnight symptoms reported postoperative day 5 following exploratory laparotomy with extensive adhesiolysis for high-grade small bowel obstruction. Patient is tolerating full liquid diet and passing gas, no bowel movement recorded We discontinued PPN and central line Objective Vital Signs Date Time Temp Pulse Resp B/P (MAP) Pulse Ox O2 Delivery O2 Flow Rate FiO2 06/29/25 20:28 108 18 Nasal Cannula 4.0 06/29/25 20:16 96 36 06/29/25 18:00 98.3 129/50 (76) Result Diagram: 06/29/25 0547 06/29/25 0547 General: Awake, alert, and oriented to person, place, and time. Mild distress due to pain. HEENT: No pallor or icterus. Mucous membranes moist. Neck: No masses or tenderness. Respiratory: Bilateral breath sounds clear. Cardiovascular: Regular rhythm; heart rate elevated. Normal S1 and S2; no murmurs, rubs, or gallops. Abdomen: Abdomen appears distended, Mild tender on palpation, bowel sounds are heard on auscultation, No guarding or rigidity Neurologic: No focal weakness in upper or lower limbs. Muscle strength 5/5 bilaterally. Reflexes normal. Cranial nerves intact. Extremities: No cyanosis, clubbing, or edema. Skin: Warm and dry. Coagulation Studies Laboratory Tests Test 06/19/25 13:22 06/20/25 06:30 D-Dimer 0.99 MG/L FEU (0-0.50) H D-Dimer Comment Prothrombin Time 10.6 SECONDS (9.0-12.0) INR International Normalized Ratio 1.0 INR Coagulation Comments Advance Care Planning Advanced Care plannin - 30 Minutes Assessment Assessment 74 years old female currently evaluated small-bowel obstruction and acute exacerbation of COPD Plan Plan Small-bowel obstruction s/p exploratory laparotomy with enterolysis on 1 POD# [address] Johnson During the hospital stay, the patient developed abdominal pain and obstipation. A CT scan of the abdomen revealed severe dilation of small bowel loops up to 5 cm, consistent with high-grade small-bowel obstruction. is on board, patient is tolerating full liquid diet discontinued central line , NG tube and PPN Pain controlled with [place] Acute hypoxemic respiratory failure likely 2/2 COPD exacerbation Currently on 4 L of oxygen with nasal cannula CTA on 06/13/25: Shows no PE Solu-Medrol 40 mg IV daily, DuoNebs q.4 PRN,Spirometry Q 15. BALAJI likely secondary to renal tubular stasis.-improving Hyponatremia Creatinine improving, Sodium 132, chloride 98 Baseline creatinine on 06/19/2025- 0.96 on D10 water IV 30 cc/hour We will continue to monitor with repeat BMP. Acute exacerbation of Chronic CHF with preserved ejection fraction-improved ProBNP 525 at the time of admission Echo on 05/16/2025 showed an ejection fraction of 60%, PA pressure 50 mmHg pro BNP is 404 Reactive leukocytosis WBC count 20.3 Likely secondary to surgery.vs steroid use Peripheral artery disease s/p stent on 05/26/25 LDL: 38, Cholestrol 91 Patient is on Plavix Hypertension Hyperlipidemia on LDL: 38, Cholestrol 91 Hydralazine 10 mg p.r.n.. Continue home med lisinopril Continue home med atorvastatin 80 mg, ezetimibe 10 mg Allergic eyes Patient was reporting itchiness in her eyes and Anabell feeling in eyes Continue olopatadine eyedrops. Alcohol use disorder Tobacco use disorder Substance use navigator consulted Internal Grinder Tender consulted Lung Cancer S/P Radiation She reports her last radiation was three years ago. CT chest on 06/13/25 shows 14 mm nodule in the right lower lobe posteriorly, Patient need to follow up outpatient. Code status: Full code DVT prophylaxis: heparin Diet: liquid diet Vanessa Barba PGY1-Internal Medicine Resident This Note has been reviewed by Pgy 2 and Pgy 3 Date of Service: Jun 29, 2025 Billing Provider: JES MORGAN MD Common Visit Codes: [id number] INP/OBS CARE(HIGH) VANESSA BARBA, RACHNA Jun 29, 2025 20:47 JES MORGAN MD Jun 30, 2025 07:08
[2025-06-30] VITALS (10 sets, daily range): BP systolic 120–144; BP diastolic 63–66; PULSE 88–110; RESP 17–20; TEMP 97.8–98.1; O2SAT 88–96
[2025-06-30 07:32] LABS: MEAN PLATELET VOLUME 8.0 FL (7.4-10.4); RED CELL DISTRIBUTION WIDTH 13.9 % (11.5-14.5)
[2025-06-30 08:04] LABS: CREATININE 0.71 MG/DL (0.40-0.90); PHOSPHORUS 2.5 MG/DL (2.3-4.5); TOTAL CARBON DIOXIDE 27.8 MMOL/L (24-32); eCRCL 59 ML/MIN; eGFR 80 ML/MIN
--- NOTE | 2025-06-30 11:05 | PROGRESS NOTE ---
Progress Note ID Providers to CC ~ Progress Note Progress Note: no complaints/vss/incision intact a/p 1. s/p vel-+ bm/needs dc planning-no surgical issues PHOEBE CUMMINGS MD Jun 30, 2025 11:05
--- NOTE | 2025-06-30 11:19 | PROGRESS NOTE- Residence ---
Progress Note - Resident Providers to CC Resident Creating Document: VANESSA BARBA RES ~ Antibiotic Timeout Antibiotic Ordered?: No Subjective The patient was seen and examined at the bedside today. No acute overnight symptoms reported postoperative day 6 following exploratory laparotomy with extensive adhesiolysis for high-grade small bowel obstruction. Patient is tolerating full liquid diet and passing gas,and Bowel movement is recorded we are advancing her Diet today Objective Vital Signs Date Time Temp Pulse Resp B/P (MAP) Pulse Ox O2 Delivery O2 Flow Rate FiO2 06/30/25 10:30 20 06/30/25 10:00 98.1 102 120/63 (82) 92 Room Air 06/30/25 07:26 4.0 06/30/25 07:19 36 Result Diagram: 06/30/2537 06/30/25636 General: Awake, alert, and oriented to person, place, and time. Mild distress due to pain. HEENT: No pallor or icterus. Mucous membranes moist. Neck: No masses or tenderness. Respiratory: Bilateral breath sounds clear. Cardiovascular: Regular rhythm; heart rate elevated. Normal S1 and S2; no murmurs, rubs, or gallops. Abdomen: Abdomen appears distended, Mild tender on palpation, bowel sounds are heard on auscultation, No guarding or rigidity Neurologic: No focal weakness in upper or lower limbs. Muscle strength 5/5 bilaterally. Reflexes normal. Cranial nerves intact. Extremities: No cyanosis, clubbing, or edema. Skin: Warm and dry. Coagulation Studies Laboratory Tests Test 06/19/25 13:22 06/20/25 06:30 D-Dimer 0.99 MG/L FEU (0-0.50) H D-Dimer Comment Prothrombin Time 10.6 SECONDS (9.0-12.0) INR International Normalized Ratio 1.0 INR Coagulation Comments Advance Care Planning Advanced Care plannin - 30 Minutes Assessment Assessment 74 years old female currently evaluated small-bowel obstruction and acute exacerbation of COPD Plan Plan Small-bowel obstruction s/p exploratory laparotomy with enterolysis on POD# [address] Johnson During the hospital stay, the patient developed abdominal pain and obstipation. A CT scan of the abdomen revealed severe dilation of small bowel loops up to 5 cm, consistent with high-grade small-bowel obstruction. is on board, patient is tolerating we are advancing patient's Diet Pain controlled with [place] Acute hypoxemic respiratory failure likely 2/2 COPD exacerbation-resolving patient is currently maintaining Saturation of 92 on room air CTA on 06/13/25: Shows no PE Solu-Medrol 40 mg IV daily, DuoNebs q.4 PRN,Spirometry Q 15. BALAJI likely secondary to renal tubular stasis.-improving Hyponatremia Creatinine improving, Sodium 133, chloride 99 Baseline creatinine on 06/19/2025- 0.96 on D10 water IV 30 cc/hour We will continue to monitor with repeat BMP. Acute exacerbation of Chronic CHF with preserved ejection fraction-improved ProBNP 525 at the time of admission Echo on 05/16/2025 showed an ejection fraction of 60%, PA pressure 50 mmHg pro BNP is 404 Reactive leukocytosis likley 2/2 Steriod use Wbc trending down, Peripheral artery disease s/p stent on 05/26/25 LDL: 38, Cholestrol 91 Patient is on Plavix Hypertension Hyperlipidemia on LDL: 38, Cholestrol 91 Hydralazine 10 mg p.r.n.. Continue home med lisinopril Continue home med atorvastatin 80 mg, ezetimibe 10 mg Allergic eyes Patient was reporting itchiness in her eyes and Anabell feeling in eyes Continue olopatadine eyedrops. Alcohol use disorder Tobacco use disorder Substance use navigator consulted Pediatric Physical Therapy Assistant consulted Lung Cancer S/P Radiation She reports her last radiation was three years ago. CT chest on 06/13/25 shows 14 mm nodule in the right lower lobe posteriorly, Patient need to follow up outpatient. Code status: Full code DVT prophylaxis: heparin Diet: liquid diet Vanessa Barba PGY1-Internal Medicine Resident This Note has been reviewed by Pgy 2 and Pgy 3 Date of Service: Jun 30, 2025 Billing Provider: JES MORGAN MD,VANESSA, RES Jun 30, 2025 11:19
--- NOTE | 2025-06-30 18:57 | DISCHARGE SUMMARY-Residence ---
Discharge Summary Providers to CC Resident Creating Document: VANESSA BARBA, RES ~ Discharge Summary Admission Diagnosis: Small-bowel obstruction Hospital Course DATE OF ADMISSION: 06/19/25 DATE OF DISCHARGE: 06/30/2025 Discharge Diagnosis\Comment: Small-bowel obstruction Acute hypoxemic respiratory failure 2/2 COPD exacerbation Acute kidney injury 2/2 renal tubular stasis Reactive leukocytosis Peripheral artery disease Hypertension Hyperlipidemia Allergic eyes Alcohol use disorder Lung cancer Operations\Procedures: exploratory laparotomy with enterolysis Consultants: Dr. Johnson Complications: None Condition on DC: Stable for transfer Discharge Summary: History of present illness by Dr. Hasmukh Prince This is a 74-year-old female with past medical history of COPD, peripheral artery disease s/p stent, hypertension, lung cancer s/p radiation, presented in ER from [facility] with chief complain of shortness of breath. She states that she is feeling short of breath since yesterday, shortness of breath which is worse on exertion, she also reports shortness of breath while sleeping due to which she sleep in rolled position. In addition to that she also also has a cough for the past couple of weeks which is dry, denies chest pain, nausea, vomitting and abdominal pain. She also feel constipated last bowel movement was one week ago She does not use oxygen at home, she reports she was using breathing treatments couple of months ago and stopped taking it Hospital course This 74 years old female who presented to ER from [facility] with chief complaints shortness of breath, initially patient was treated with antibiotic, DuoNebs, methylprednisolone. Patient also has associated abdominal pain and severe constant. Initially abdominal x-ray shows Nonspecific gaseous distended loops of colon and small bowel. Followed by abdominal CT showed Marked/ severe abnormal dilatation small bowel loops up to 5 cm with air-fluid levels consistent with high-grade small bowel obstruction. was consulted and he performed exploratory laparotomy with enterolysis. Post surgery patient is on NPO , on NG tube and pain was controlled with a Dilaudid and on day 2 patient was started on PPN through central line. On the day 4 patient passed gas and NG tube was removed and patient was started on full liquid diet and pain is controlled with [place]. Day 5 discontinued central line and PPI , on day 6 patie nt had a bowel movement and endorses improvement in her symptom, patient was stable and fit for transfer Physical examination General: Awake, alert, and oriented to person, place, and time. Mild distress due to pain. HEENT: No pallor or icterus. Mucous membranes moist. Neck: No masses or tenderness. Respiratory: Bilateral breath sounds clear. Cardiovascular: Regular rhythm; heart rate elevated. Normal S1 and S2; no murmurs, rubs, or gallops. Abdomen: Abdomen appears distended, Mild tender on palpation, bowel sounds are heard on auscultation, No guarding or rigidity Neurologic: No focal weakness in upper or lower limbs. Muscle strength 5/5 bilaterally. Reflexes normal. Cranial nerves intact. Extremities: No cyanosis, clubbing, or edema. Skin: Warm and dry. Discharge medications Continued home medications Ezetimibe 10 mg Atorvastatin 80 mg Clonidine 0.1 mg Lisinopril 30 mg [place] five Lamotrigine 100 mg b.i.d. Bupropion 300 mg Duloxetine 30 mg Folic acid Multivitamin. Plavix 70 mg Discharge instructions Follow up with PCP in two weeks Follow up with Dr. Johnson in two weeks Skin bowel and bladder care Physical therapy. Vital Signs Date Time Temp Pulse Resp B/P (MAP) Pulse Ox O2 Delivery O2 Flow Rate FiO2 06/30/25 15:21 108 18 Room Air 0.0 06/30/25 15:14 92 21 06/30/25 10:00 98.1 120/63 (82) Laboratory Tests Test 06/28/25 21:12 06/29/25 02:11 06/29/25 03:23 06/29/25 05:47 Glucometer 163 mg/dl 88 mg/dl 90 mg/dl White Blood Count 18.5 X10'3 Red Blood Count 3.01 X10'6 Hemoglobin 9.4 g/dl Hematocrit 27.7 % Mean Corpuscular Volume 92.0 FL Mean Corpuscular Hemoglobin 31.2 PG Mean Corpuscular Hemoglobin Concent 33.9 g/dL Red Cell Distribution Width 13.5 % Platelet Count 193 X10'3 Mean Platelet Volume 8.1 FL Neutrophils (%) (Auto) 85.0 % Lymphocytes (%) (Auto) 10.3 % Monocytes (%) (Auto) 4.3 % Eosinophils (%) (Auto) 0.2 % Basophils (%) (Auto) 0.2 % Neutrophils # (Auto) 15.7 X10'3 Lymphocytes # (Auto) 1.9 X10'3 Monocytes # (Auto) 0.8 X10'3 Eosinophils # (Auto) 0.0 X10'3 Basophils # (Auto) 0.0 X10'3 CBC Comment Sodium Level 132 MMOL/L Potassium Level 4.1 MMOL/L Chloride Level 98 MMOL/L Carbon Dioxide Level 27.2 MMOL/L Anion Gap 7 Blood Urea Nitrogen 29 MG/DL Creatinine 0.70 MG/DL Estimated GFR/1.73 m2 82 ML/MIN BUN/Creatinine Ratio 41.4 Glucose Level 97 MG/DL Calcium Level 8.6 MG/DL Phosphorus Level 2.0 MG/DL Magnesium Level 1.8 MG/DL Total Bilirubin 0.5 MG/DL Aspartate Amino Transf (AST/SGOT) 62 U/L Alanine Aminotransferase (ALT/SGPT) 108 U/L Alkaline Phosphatase 113 IU/L Total Protein 6.0 G/DL Albumin 2.2 G/DL Globulin 3.8 G/DL Albumin/Globulin Ratio 0.6 Chemistry Comments Test 06/29/25 09:05 06/29/25 15:26 06/29/25 20:15 06/30/25 02:05 Glucometer 129 mg/dl 179 mg/dl 137 mg/dl 103 mg/dl Test 06/30/25 06:37 06/30/25 09:04 06/30/25 14:23 White Blood Count 14.6 X10'3 Red Blood Count 3.15 X10'6 Hemoglobin 9.7 g/dl Hematocrit 29.1 % Mean Corpuscular Volume 92.2 FL Mean Corpuscular Hemoglobin 30.8 PG Mean Corpuscular Hemoglobin Concent 33.4 g/dL Red Cell Distribution Width 13.9 % Platelet Count 227 X10'3 Mean Platelet Volume 8.0 FL Neutrophils (%) (Auto) 76.8 % Lymphocytes (%) (Auto) 18.2 % Monocytes (%) (Auto) 4.3 % Eosinophils (%) (Auto) 0.5 % Basophils (%) (Auto) 0.2 % Neutrophils # (Auto) 11.2 X10'3 Lymphocytes # (Auto) 2.7 X10'3 Monocytes # (Auto) 0.6 X10'3 Eosinophils # (Auto) 0.1 X10'3 Basophils # (Auto) 0.0 X10'3 CBC Comment Sodium Level 133 MMOL/L Potassium Level 4.4 MMOL/L Chloride Level 99 MMOL/L Carbon Dioxide Level 27.8 MMOL/L Anion Gap 6 Blood Urea Nitrogen 27 MG/DL Creatinine 0.71 MG/DL Estimated GFR/1.73 m2 80 ML/MIN BUN/Creatinine Ratio 38.0 Glucose Level 84 MG/DL Calcium Level 8.8 MG/DL Phosphorus Level 2.5 MG/DL Magnesium Level 1.9 MG/DL Total Bilirubin 0.5 MG/DL Aspartate Amino Transf (AST/SGOT) 119 U/L Alanine Aminotransferase (ALT/SGPT) 241 U/L Alkaline Phosphatase 195 IU/L Total Protein 6.2 G/DL Albumin 2.1 G/DL Globulin 4.1 G/DL Albumin/Globulin Ratio 0.5 Chemistry Comments Glucometer 119 mg/dl 214 mg/dl Imaging at hospital Chest x-ray-No acute cardiopulmonary disease Abdominal f-zie-[id number] gaseous distended loops of colon and small bowel. Abdominal CT-Marked/ severe abnormal dilatation small bowel loops up to 5 cm with air-fluid levels consistent with high-grade small bowel obstruction. Chest a-[id number] and alveolar type opacities of bilateral lungs which represent infectious process in the right clinical setting with underlying fibrotic Changes not excluded. Possible trace left-sided pleural effusion/left basilar atelectasis. Discharge instructions Follow up with PCP in a week, follow up with surgeon Dr. Johnson with in a week, continue [place] for pain *Problems/Diagnosis: (1) Small bowel obstruction (2) Abdominal pain (3) Leukocytosis Total Time Spent on D/C: Up to 30 Minutes Date of Service: Jun 30, 2025 Billing Provider: JES MORGAN MD, SATISH, RES Jun 30, 2025 18:56 CYNTHIA MATHEW, RES Jul 01, 2025 07:36
== END 2025-06-30 15:15 | DRG 335 ==
LOC: ER 08:17 → ED HOLD 09:40 → PCU 3S 18:00 → ORTHO 4S 06-26 23:55
PROVIDERS: ADMIT Internal Medicine; ATTEND Internal Medicine
PROC: 5A09357 Assistance with Respiratory Ventilation, Less than 24 Consecutive Hours, Continuous Positive Airway Pressure (ICD-10-PCS; 2025-06-20)
PROC: 5A09357 Assistance with Respiratory Ventilation, Less than 24 Consecutive Hours, Continuous Positive Airway Pressure (ICD-10-PCS; 2025-06-21)
PROC: 5A09357 Assistance with Respiratory Ventilation, Less than 24 Consecutive Hours, Continuous Positive Airway Pressure (ICD-10-PCS; 2025-06-23)
PROC: 3E0T3BZ Introduction of Anesthetic Agent into Peripheral Nerves and Plexi, Percutaneous Approach (ICD-10-PCS; 2025-06-24)
PROC: 0D9670Z Drainage of Stomach with Drainage Device, Via Natural or Artificial Opening (ICD-10-PCS; 2025-06-24)
PROC: 02HV33Z Insertion of Infusion Device into Superior Vena Cava, Percutaneous Approach (ICD-10-PCS; 2025-06-24)
PROC: 0DN80ZZ Release Small Intestine, Open Approach (ICD-10-PCS; principal; 2025-06-24 17:08)
DX: K56.50 Intestinal adhesions [bands], unspecified as to partial versus complete obstruction (principal); I50.33 Acute on chronic diastolic (congestive) heart failure; J96.01 Acute respiratory failure with hypoxia; N17.0 Acute kidney failure with tubular necrosis; I13.0 Hypertensive heart and chronic kidney disease with heart failure and stage 1 through stage 4 chronic kidney disease, or unspecified chronic kidney disease; I27.81 Cor pulmonale (chronic); Z79.01 Long term (current) use of anticoagulants; I73.9 Peripheral vascular disease, unspecified; F10.10 Alcohol abuse, uncomplicated; J44.89 Other specified chronic obstructive pulmonary disease; F31.9 Bipolar disorder, unspecified; Z66 Do not resuscitate; Z20.822 Contact with and (suspected) exposure to COVID-19; E78.00 Pure hypercholesterolemia, unspecified; D72.829 Elevated white blood cell count, unspecified; Z95.1 Presence of aortocoronary bypass graft; Z87.891 Personal history of nicotine dependence; Z85.118 Personal history of other malignant neoplasm of bronchus and lung; Z79.899 Other long term (current) drug therapy; Z92.3 Personal history of irradiation; Z91.013 Allergy to seafood
CPT/HCPCS: 36415; 36600; 71045; 74018; 74176; 80048; 80053; 80305; 81001; 82570; 82803; 82948; 83605; 83735; 83880; 83930; 83935; 84100; 84134; 84145; 84300; 84443; 84478; 84484; 84540; 84560; 85018; 85025; 85379; 85610; 86140; 86885; 86900; 86901; 87040; 87081; 87804; 87811; 93005; 94640; 94660; 94760; 96365; 96368; 96372; 96375; 96376; 97110; 97116; 97161; 97530; 99291; A4215; A4615; A4618; A5200; A6154; A6212; A6213; A6250; A6253; A6258; A6449; A7000; C1758; G0378; J0360; J0456; J0666; J0694; J0696; J1100; J1171; J1644; J1650; J1938; J2003; J2212; J2250; J2270; J2405; J2704; J2765; J2919; J3010; J3490; J7030; J7040; J7120